=== PATIENT | female | born 1940 | race Caucasian/White ===

== ENCOUNTER 2021-04-25 09:40 | Emergency (ER) | payer BC, MEDICARE ==
[2021-04-25 10:01] VITALS: RESP 18; TEMP 98
--- NOTE | 2021-04-25 10:26 | ED ---
General Adult HPI - General Chief complaint: Extremity Injury, Upper Stated complaint: fall, brain tumor Time Seen by Provider: 04/25/21 10:04 Source: patient, RN notes reviewed Mode of arrival: ambulatory Limitations: no limitations - History of Present Illness Initial comments: -year-old female with a history of brain tumor resents to the emergency de partment accompanied by her daughter, for evaluation of left wrist pain status post fall approximately 1 hour prior to arrival. Patient did take one [place] prior to arrival and her daughter attempted to splint the wrist. Reports moderate amount of discomfort, however states she is not in need of anything for pain at this time. Patient's ring was removed from her left fourth digit and given to her daughter. Patient describes losing her balance, which is not uncommon for her due to this brain tumor, when she was turning around and fell backward. Patient states she landed on her backside first and then reached her left arm out to break her fall, then states the back of her head hit the ground. She denies loss of consciousness, nausea, vomiting, or cognition difference from baseline. Patient states she does take an oral blood thinning medicine, Plavix. Denies neck or back pain. - Related Data Home Medications Medication Instructions Recorded Confirmed ALPRAZolam [Xanax] 0.5 mg PO HS PRN 04/25/21 04/25/21 Albuterol Sulfate [Albuterol 2 puff PO RT-Q6H PRN 04/25/21 04/25/21 Sulfate Hfa] Aspirin 81 mg PO DAILY 04/25/21 04/25/21 Biotin [Biotin Disolve] 5,000 mcg PO DAILY 04/25/21 04/25/21 Cholecalciferol [Vitamin D3 (125 125 mcg PO DAILY 04/25/21 04/25/21 Mcg = 5000 Iu)] Clopidogrel Bisulfate [Plavix] 75 mg PO DAILY 04/25/21 04/25/21 Fluticasone/Umeclidin/Vilanter 1 puff INHALATION RT-DAILY 04/25/21 04/25/21 [Trelegy Ellipta 100-62.5-25] HYDROcodone/APAP 10-325MG [[place] 1 tab PO Q4HR PRN 04/25/21 04/25/21 10-325] Isosorbide Mononitrate ER [Imdur] 30 mg PO DAILY 04/25/21 04/25/21 Lansoprazole [Prevacid] 30 mg PO DAILY 04/25/21 04/25/21 Magnesium Gluconate [Magonate] 500 mg PO QID 04/25/21 04/25/21 Mesalamine [Pentasa] 1,500 mg PO TID 04/25/21 04/25/21 Nitroglycerin Sl Tabs [Nitrostat] 0.4 mg SUBLINGUAL Q5M PRN 04/25/21 04/25/21 Pantoprazole Sodium [Protonix] 40 mg PO DAILY 04/25/21 04/25/21 amLODIPine [Norvasc] 10 mg PO DAILY 04/25/21 04/25/21 carvediloL [Coreg] 3.125 mg PO BID 04/25/21 04/25/21 lisinopriL 40 mg PO DAILY 04/25/21 04/25/21 Allergies Allergy/AdvReac Type Severity Reaction Status Date / Time No Known Allergies Allergy Verified 04/25/21 11:56 Review of Systems ROS Statement: Those systems with pertinent positive or pertinent negative responses have been documented in the HPI. ROS Other: All systems not noted in ROS Statement are negative. Past Medical History Past Medical History: COPD, Hyperlipidemia, Hypertension, Myocardial Infarction ([place]), Seizure Disorder Additional Past Medical History / Comment(s): brain tumor History of Any Multi-Drug Resistant Organisms: None Reported Past Surgical History: Appendectomy, Bowel Resection, Heart Catheterization With Stent, Hernia Repair, Hysterectomy Additional Past Surgical History / Comment(s): brain surgeryx 2, crhon's, aortic valve replacment Past Psychological History: No Psychological Hx Reported Smoking Status: Current every day smoker Past Alcohol Use History: None Reported Past Drug Use History: Unable to Obtain General Exam Limitations: no limitations (All developed, well nourished female in no acute distress. Initially temperature 90.8, pulse 61, respirations 18, blood pressure 173/81, pulse ox 93% on room air.) General appearance: alert, in no apparent distress Head exam: Present: atraumatic, normocephalic, other (Contusion, abrasion, or scalp laceration in occipital region where patient states her head struck the ground. Scarring and deformity in the right temporoparietal area from previous surgery- no new issue.) Eye exam: Present: normal appearance, PERRL, EOMI. Absent: scleral icterus, conjunctival injection, periorbital swelling ENT exam: Present: normal exam, normal oropharynx, mucous membranes moist Neck exam: Present: normal inspection, full ROM. Absent: tenderness, meningismus, lymphadenopathy Respiratory exam: Present: normal lung sounds bilaterally, other (Patient has a history of COPD; pulse ox of 93% on room air is baseline for patient per family.). Absent: respiratory distress, wheezes, rales, rhonchi, stridor Cardiovascular Exam: Present: regular rate, normal rhythm, normal heart sounds. Absent: systolic murmur, diastolic murmur, rubs, gallop, clicks GI/Abdominal exam: Present: soft, normal bowel sounds. Absent: distended, tenderness, guarding, rebound, rigid Left Shoulder Exam: Present: normal inspection, full ROM. Absent: tenderness, swelling Upper Arm exam: Present: normal inspection, full ROM. Absent: tenderness, swelling Elbow exam: Present: normal inspection Forearm Wrist exam: Present: swelling, ecchymosis, deformity, other (Moderate amount of swelling on the radial aspect of the right wrist; tenderness upon palpation of the entire wrist region. ) Hand Wrist exam: Present: other (No contusion, abrasion, or deformity of the digits on the right hand) Neuro motor exam: Present: thumb opposition intact, fingers 2-5 abduction intact Vascular: Present: normal capillary refill, radial pulse, brachial pulse, ulnar pulse. Absent: vascular compromise Back exam: Present: normal inspection, full ROM. Absent: CVA tenderness (R), CVA tenderness (L), muscle spasm, paraspinal tenderness, vertebral tenderness Neurological exam: Present: alert, oriented X3, CN II-XII intact Psychiatric exam: Present: normal affect, normal mood Skin exam: Present: warm, dry, intact, normal color. Absent: rash Course Vital Signs 04/25/21 04/25/21 09:55 13:27 Temperature 98 F Pulse Rate 61 62 Respiratory 18 18 Rate Blood Pressure 173/81 138/93 O2 Sat by Pulse 93 L 93 L Oximetry - Reevaluation(s) Reevaluation #1: 04/25/21 13:[address] Burrows; successful wrist reduction. Splint placed to the left upper extremity. Patient tolerated well. Splint care and education reviewed with patient and family. Procedures - Orthopedic Fracture Reduction Fracture #1 Consent Obtained: verbal consent Side: left Fracture Reduction Location: radius Analgesia: hematoma block Technique: direct manipulation Post-Reduction Neuro Exam: intact Post-Reduction Vascular Exam: intact Splint Applied: Yes (Sugar tong splint applied to the left upper extremity) Patient Tolerated Procedure: well Additional Comments: Splint care reviewed with patient and family. They verbalized understanding. Instructed to follow-up with orthopedist. Patient's daughter reports they have established care with an orthopedist not affiliated with this is similar to a therefore they will take copies of radiology studies on a disc for follow-up. - Orthopedic Splinting/Casting Injury #1 Side: left Upper Extremity Injury Location: wrist Upper Extremity Immobilizer: sugar tong splint (Left upper extremity) Additional Comments: Patient tolerated well. Medical Decision Making - Medical Decision Making 80-year-old female presents to the emergency department accompanied by her daughter for evaluation of injuries sustained in a fall this morning. Patient is on Plavix and did strike her head when she fell this morning. Denies loss of consciousness. No cervical spine pain or vertebral tenderness. 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 Patient is awake, alert, and oriented; able to answer questions appropriately. No focal neuro deficit. CT of the brain was obtained and shows no acute process. Patient does complain of significant pain to the left wrist; moderate swelling and deformity noted. Radial and ulnar pulses intact. Cap refill less than 3 seconds. No loss of sensation or range of motion distal to injury. X-ray of the left wrist was obtained and shows comminuted, possibly intra-articular displaced distal left radial fracture. Suspected nondisplaced distal meta-physeal left ulnar fracture. Successful reduction per Dr. Burrows; sugar tong splint applied to the left upper extremity. Splint care and education reviewed at length with patient and daughter. They verbalize understanding. Patient will be discharged home to follow-up with her orthopedist. Return parameters were discussed in detail. Patient and daughter verbalize understanding and agrees with plan. - Radiology Data Radiology results: report reviewed, image reviewed CT of the brain was obtained. Report was reviewed in its entirety. Impression per Dr. Raymond is previous left frontal craniotomy flap with underlying encephalomalacia in the left frontal lobe. 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 Mild cerebral atrophy. No acute intracranial abnormality seen. X-ray of the left wrist was obtained. Report was reviewed in its entirety. Per Dr. Magdaleno, there is a comminuted, possibly intra-articular displaced distal left radial fracture. Suspected nondisplaced distal meta-physeal left ulnar fracture. Disposition Clinical Impression: Displaced comminuted fracture of shaft of left radius, Head injury without concussion or intracranial hemorrhage Disposition: HOME SELF-CARE Condition: Stable Instructions (If sedation given, give patient instructions): Wrist Fracture in Adults (ED), Head Injury (ED) Additional Instructions: Follow-up with orthopedist as discussed; take copies of radiology studies on disc with you. Keep splint clean, dry, and intact. Continue taking home pain medication as needed for discomfort. Elevate affected at rest; may apply ice. Monitor for signs of worsening head injury. Return to the emergency department with any new, worsening, or concerning symptoms. Is patient prescribed a controlled substance at d/c from ED?: No Referrals: Nonstaff,Physician [Primary Care Provider] - 1-2 days [facility] [Provider Group] - 1-2 days Time of Disposition: 13:06
--- NOTE | 2021-04-25 10:52 | XR ---
Left wrist HISTORY: Trauma and pain 4 views the left wrist There is a comminuted, possibly intra-articular displaced distal left radial fracture. Suspect a nond isplaced distal metaphyseal left ulnar fracture. Chondrocalcinosis is present. Reduced bone mineraliz ation is noted. Widening of the scapholunate distance is present and may be chronic. Osteoarthritic c hanges are present at the carpal metacarpal joint first digit. There is soft tissue swelling. IMPRESSION: Wrist fractures. Additional findings above.
--- NOTE | 2021-04-25 11:09 | CT ---
EXAMINATION TYPE: CT brain wo con DATE OF EXAM: 04/25/2021 COMPARISON: None HISTORY: 80-year-old female pain and head injury status post Fall, Brain tumor. On blood thinners. TECHNIQUE: Examination was done in axial plane without intravenous contrast. Coronal and sagittal r econstructions performed. CT DLP: 1102.4 mGycm Automated exposure control for dose reduction was used. FINDINGS: There is no evidence of acute intracranial hemorrhage, acute ischemic changes, mass, mass-effect, or extra-axial fluid collection. There is no effacement of cerebral sulci or basal subarachnoid cister ns. There is no midline shift. Ocampo-white matter distinction is preserved. There is a left lateral frontal convexity craniotomy flap. Underlying encephalomalacia throughout the left frontal lobe. There appears to be some type of platelike prosthetic device embedded in the scalp along the left lat eral convexity measuring 3.1 cm wide, refer to coronal image 37 and axial image 43. Mild central cerebral volume loss and secondary mild prominence to the ventricular system. 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 Paranasal sinuses and mastoid air cells well pneumatized. Orbits and globes are intact. IMPRESSION: Previous left frontal craniotomy flap with underlying encephalomalacia in the left frontal lobe. 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 Mild cerebral atrophy. No acute intracranial abnormality seen.
[2021-04-25] MEDS ORDERED: HYDROmorphone 1 MG/ML 1 ML SYRINGE IM STA (12:01)
[2021-04-25] MEDS ORDERED: LIDOCAINE 1% INJ 10MG/ML (20 ML MDV) SQ ONE (12:01)
[2021-04-25] MEDS ORDERED: ONDANSETRON ODT 4 MG TAB PO STA (12:01)
[2021-04-25 13:28] VITALS: BP 138/93; PULSE 62
== END 2021-04-25 13:28 | disposition home or self-care (01) ==
LOC: EC 09:40
DX: S52.352A Displaced comminuted fracture of shaft of radius, left arm, initial encounter for closed fracture (principal); S01.01XA Laceration without foreign body of scalp, initial encounter; I10 Essential (primary) hypertension; J44.9 Chronic obstructive pulmonary disease, unspecified; E78.5 Hyperlipidemia, unspecified; I25.2 Old myocardial infarction; G40.909 Epilepsy, unspecified, not intractable, without status epilepticus; F17.200 Nicotine dependence, unspecified, uncomplicated; Z79.82 Long term (current) use of aspirin; Z79.51 Long term (current) use of inhaled steroids; Z79.899 Other long term (current) drug therapy; W18.30XA Fall on same level, unspecified, initial encounter
CPT/HCPCS: 73110; 70450; 25505; 99284; 96372; J2001; J1170

== ENCOUNTER 2021-04-26 19:54 | Inpatient (IN) | payer MEDICARE, BC ==
[2021-04-26] MEDS ORDERED: SODIUM CHLORIDE 0.9% 1,000 ML IV ONE (21:21)
[2021-04-26 21:48] LABS: Basophils % (A) 0 %; Eosinophils # (A) 0.1 k/uL (0-0.7); Eosinophils % (A) 1 %; HCT 40.9 % (34.0-46.0); HGB 12.8 gm/dL (11.4-16.0); Lymphocytes % (A) 8 %; MCH 27.5 pg (25.0-35.0); MCHC 31.4 g/dL (31.0-37.0); MCV 87.7 fL (80.0-100.0); Mean Platelet Volume 9.9; Monocytes # (A) 0.8 k/uL (0-1.0); Monocytes % (A) 6 %; Neutrophils # (A) 10.2 k/uL (1.3-7.7); Neutrophils % (A) 84 %; Platelet Count 219 k/uL (150-450); RBC 4.66 m/uL (3.80-5.40); RDW 14.6 % (11.5-15.5); WBC 12.2 k/uL (3.8-10.6)
--- NOTE | 2021-04-26 22:02 | CT ---
EXAMINATION TYPE: CT brain wo con DATE OF EXAM: 04/26/2021 COMPARISON: Yesterday. HISTORY: AMS CT DLP: 1129.4 mGycm Automated exposure control for dose reduction was used. There is 5 cm area of hypodensity left posterior frontal lobe. There is left lateral frontal cranioto my defect. There is no mass effect nor midline shift. There is no sign of intracranial hemorrhage. Sk ull base is intact. There is normal aeration of the mastoid sinuses. IMPRESSION: Previous surgery. Encephalomalacia left frontal lobe. No change compared to yesterday. No acute intra cranial abnormality.
[2021-04-26 22:15] LABS: ALT 99 U/L (4-34); AST 129 U/L (14-36); Acetaminophen <10.0 ug/mL; African American GFR (CKD) 66 (>60 ml/min/1.73 sqM); Albumin 3.6 g/dL (3.5-5.0); Alcohol <10 mg/dL; Alkaline Phosphatase 79 U/L (38-126); Anion Gap 9 mmol/L; Blood Urea Nitrogen 33 mg/dL (7-17); Calcium 9.8 mg/dL (8.4-10.2); Carbon Dioxide 26 mmol/L (22-30); Chloride 99 mmol/L (98-107); Glucose 124 mg/dL (74-99); Non-African American GFR(CKD) 57 (>60 ml/min/1.73 sqM); Potassium 3.7 mmol/L (3.5-5.1); Salicylate <1.0 mg/dL; Sodium 134 mmol/L (137-145); Total Bilirubin 0.9 mg/dL (0.2-1.3); Total Protein 6.6 g/dL (6.3-8.2)
--- NOTE | 2021-04-26 22:17 | XR ---
EXAMINATION TYPE: XR chest 2V DATE OF EXAM: 04/26/2021 COMPARISON: NONE HISTORY: Altered mental status TECHNIQUE: 2 views FINDINGS: Heart is enlarged. There is no heart failure. There are chest leads. There is some elevatio n of the left diaphragm. There is 25% anterior wedging of T11 vertebra. There is also similar wedging of T12. IMPRESSION: Cardiomegaly.. No heart failure. Lower thoracic mild compression fractures of uncertain a ge.
[2021-04-26] MEDS ORDERED: HYDROcodone/APAP 10-325MG 1 EACH TAB PO ONE (22:27)
[2021-04-26 22:29] LABS: Partial Thromboplastin Time 24.5 sec (22.0-30.0); Prothrombin Time 10.6 sec (9.0-12.0)
[2021-04-26] MEDS ORDERED: LORazepam 2 MG/ML INJ IV STA (23:00)
--- NOTE | 2021-04-26 23:08 | ED ---
Altered Mental Status HPI - General Chief Complaint: Altered Mental Status Stated Complaint: Not eating or drinking, Weak Time Seen by Provider: 04/26/21 20:59 Source: patient Mode of arrival: ambulatory Limitations: no limitations - History of Present Illness Initial Comments: 80-year-old female past history of Crohn's, brain tumor with resection who p resents emergency room with altered mental status. Patient was seen yesterday in the emergency room and after a fall. He she reports that she has balance issues due to her history of brain tumor and therefore has frequent falls. She did sustain a fall yesterday and broke her left wrist. She also hit her head. She came to the hospital where she was placed in a splint after reduction. CT of her brain was negative for any acute process. Patient was discharged home and presents today with altered mental status. Daughter is at bedside and helps provide history. States that this is her mother's third hospitalization in the past week. Previous hospitalization was at [facility] for altered mental status. Reports that she had improvement in her mentation after fluid hydration. She states that her mother has not been eating and drinking since she has been at home. Denies any new falls. Patient refuses to answer any questions and therefore the HPI is limited. Daughter is concerned for recurrence of the brain tumor. - Related Data Home Medications Medication Instructions Recorded Confirmed ALPRAZolam [Xanax] 0.5 mg PO HS PRN 04/25/21 04/26/21 Albuterol Sulfate [Albuterol 2 puff PO RT-Q6H PRN 04/25/21 04/26/21 Sulfate Hfa] Aspirin 81 mg PO DAILY 04/25/21 04/26/21 Biotin [Biotin Disolve] 5,000 mcg PO DAILY 04/25/21 04/26/21 Cholecalciferol [Vitamin D3 (125 125 mcg PO DAILY 04/25/21 04/26/21 Mcg = 5000 Iu)] Clopidogrel Bisulfate [Plavix] 75 mg PO DAILY 04/25/21 04/26/21 Fluticasone/Umeclidin/Vilanter 1 puff INHALATION RT-DAILY 04/25/21 04/26/21 [Trelegy Ellipta 100-62.5-25] HYDROcodone/APAP 10-325MG [[place] 1 tab PO Q4HR PRN 04/25/21 04/26/21 10-325] Isosorbide Mononitrate ER [Imdur] 30 mg PO DAILY 04/25/21 04/26/21 Lansoprazole [Prevacid] 30 mg PO DAILY 04/25/21 04/26/21 Magnesium Gluconate [Magonate] 500 mg PO QID 04/25/21 04/26/21 Mesalamine [Pentasa] 1,500 mg PO TID 04/25/21 04/26/21 Nitroglycerin Sl Tabs [Nitrostat] 0.4 mg SUBLINGUAL Q5M PRN 04/25/21 04/26/21 Pantoprazole Sodium [Protonix] 40 mg PO DAILY 04/25/21 04/26/21 amLODIPine [Norvasc] 10 mg PO DAILY 04/25/21 04/26/21 carvediloL [Coreg] 3.125 mg PO BID 04/25/21 04/26/21 lisinopriL 40 mg PO DAILY 04/25/21 04/26/21 Allergies Allergy/AdvReac Type Severity Reaction Status Date / Time No Known Allergies Allergy Verified 04/26/21 20:42 Review of Systems ROS Statement: Those systems with pertinent positive or pertinent negative responses have been documented in the HPI. ROS Other: All systems not noted in ROS Statement are negative. Past Medical History Past Medical History: COPD, Hyperlipidemia, Hypertension, Myocardial Infarction ([place]), Seizure Disorder Additional Past Medical History / Comment(s): brain tumor History of Any Multi-Drug Resistant Organisms: None Reported Past Surgical History: Appendectomy, Bowel Resection, Heart Catheterization With Stent, Hernia Repair, Hysterectomy Additional Past Surgical History / Comment(s): brain surgeryx 2, crhon's, aortic valve replacment Past Psychological History: No Psychological Hx Reported Smoking Status: Current every day smoker Past Alcohol Use History: None Reported Past Drug Use History: Unable to Obtain General Exam Limitations: no limitations Course Vital Signs 04/26/21 04/26/21 04/26/21 20:34 21:15 22:55 Temperature 98.0 F Pulse Rate 70 67 77 Respiratory 20 17 18 Rate Blood Pressure 83/47 105/61 174/75 O2 Sat by Pulse 93 L 93 L 98 Oximetry Procedures - [place] Protocol (Time Out) Nurse: Ashlee Wells Medical Decision Making - Medical Decision Making On arrival patient was placed into trauma 1. A thorough history and physical exam is performed. Patient does not follow any commands or answer any questions however she does respond quickly to painful stimulation. Laboratory studies were conducted. Patient to go over for a CT of her brain which demonstrates no acute findings. Patient is reevaluated and is awake in the exam room. She is requesting pain medications for restless leg. Patient is prescribed [place] 10/325 milligrams be taken every 4 hours for pain. Patient does admit that she will take 2 tablets at a time. Patient denies abuse of her medications. She denies any illicit drug use. Laboratory studies are reviewed. Troponin mildly elevated at 0.055. He'll awaiting urinalysis at this time. Did recommend hospitalization for which the patient's family did agree to. Spoke with Dr. Atkinson who agreed to admit the patient. She is currently awaiting a bed on the floor in stable condition - Lab Data Result diagrams: 04/26/21 21:24 04/26/21 21:24 Lab Results 04/26/21 04/26/21 04/26/21 Range/Units 21:24 21:24 21:24 WBC 12.2 H (3.8-10.6) k/uL RBC 4.66 (3.80-5.40) m/uL Hgb 12.8 (11.4-16.0) gm/dL Hct 40.9 (34.0-46.0) % MCV 87.7 (80.0-100.0) fL MCH 27.5 (25.0-35.0) pg MCHC 31.4 (31.0-37.0) g/dL RDW 14.6 (11.5-15.5) % Plt Count 219 (150-450) k/uL MPV 9.9 Neutrophils % 84 % Lymphocytes % 8 % Monocytes % 6 % Eosinophils % 1 % Basophils % 0 % Neutrophils # 10.2 H (1.3-7.7) k/uL Lymphocytes # 1.0 (1.0-4.8) k/uL Monocytes # 0.8 (0-1.0) k/uL Eosinophils # 0.1 (0-0.7) k/uL Basophils # 0.0 (0-0.2) k/uL PT 10.6 (9.0-12.0) sec INR 1.0 (<1.2) APTT 24.5 (22.0-30.0) sec Sodium 134 L (137-145) mmol/L Potassium 3.7 (3.5-5.1) mmol/L Chloride 99 (98-107) mmol/L Carbon Dioxide 26 (22-30) mmol/L Anion Gap 9 mmol/L BUN 33 H (7-17) mg/dL Creatinine 0.95 (0.52-1.04) mg/dL Est GFR (CKD-EPI)AfAm 66 (>60 ml/min/1.73 sqM) Est GFR (CKD-EPI)NonAf 57 (>60 ml/min/1.73 sqM) Glucose 124 H (74-99) mg/dL Calcium 9.8 (8.4-10.2) mg/dL Total Bilirubin 0.9 (0.2-1.3) mg/dL AST 129 H (14-36) U/L ALT 99 H (4-34) U/L Alkaline Phosphatase 79 (38-126) U/L Ammonia (<30) umol/L Creatine Kinase (30-135) U/L Troponin I (0.000-0.034) ng/mL Total Protein 6.6 (6.3-8.2) g/dL Albumin 3.6 (3.5-5.0) g/dL Salicylates <1.0 mg/dL Acetaminophen <10.0 ug/mL Serum Alcohol <10 mg/dL Coronavirus (PCR) (Not Detectd) 04/26/21 04/26/21 04/26/21 Range/Units 21:24 21:24 21:24 WBC (3.8-10.6) k/uL RBC (3.80-5.40) m/uL Hgb (11.4-16.0) gm/dL Hct (34.0-46.0) % MCV (80.0-100.0) fL MCH (25.0-35.0) pg MCHC (31.0-37.0) g/dL RDW (11.5-15.5) % Plt Count (150-450) k/uL MPV Neutrophils % % Lymphocytes % % Monocytes % % Eosinophils % % Basophils % % Neutrophils # (1.3-7.7) k/uL Lymphocytes # (1.0-4.8) k/uL Monocytes # (0-1.0) k/uL Eosinophils # (0-0.7) k/uL Basophils # (0-0.2) k/uL PT (9.0-12.0) sec INR (<1.2) APTT (22.0-30.0) sec Sodium (137-145) mmol/L Potassium (3.5-5.1) mmol/L Chloride (98-107) mmol/L Carbon Dioxide (22-30) mmol/L Anion Gap mmol/L BUN (7-17) mg/dL Creatinine (0.52-1.04) mg/dL Est GFR (CKD-EPI)AfAm (>60 ml/min/1.73 sqM) Est GFR (CKD-EPI)NonAf (>60 ml/min/1.73 sqM) Glucose (74-99) mg/dL Calcium (8.4-10.2) mg/dL Total Bilirubin (0.2-1.3) mg/dL AST (14-36) U/L ALT (4-34) U/L Alkaline Phosphatase (38-126) U/L Ammonia <9 (<30) umol/L Creatine Kinase 71 (30-135) U/L Troponin I 0.055 H* (0.000-0.034) ng/mL Total Protein (6.3-8.2) g/dL Albumin (3.5-5.0) g/dL Salicylates mg/dL Acetaminophen ug/mL Serum Alcohol mg/dL Coronavirus (PCR) (Not Detectd) 04/26/21 Range/Units 22:55 WBC (3.8-10.6) k/uL RBC (3.80-5.40) m/uL Hgb (11.4-16.0) gm/dL Hct (34.0-46.0) % MCV (80.0-100.0) fL MCH (25.0-35.0) pg MCHC (31.0-37.0) g/dL RDW (11.5-15.5) % Plt Count (150-450) k/uL MPV Neutrophils % % Lymphocytes % % Monocytes % % Eosinophils % % Basophils % % Neutrophils # (1.3-7.7) k/uL Lymphocytes # (1.0-4.8) k/uL Monocytes # (0-1.0) k/uL Eosinophils # (0-0.7) k/uL Basophils # (0-0.2) k/uL PT (9.0-12.0) sec INR (<1.2) APTT (22.0-30.0) sec Sodium (137-145) mmol/L Potassium (3.5-5.1) mmol/L Chloride (98-107) mmol/L Carbon Dioxide (22-30) mmol/L Anion Gap mmol/L BUN (7-17) mg/dL Creatinine (0.52-1.04) mg/dL Est GFR (CKD-EPI)AfAm (>60 ml/min/1.73 sqM) Est GFR (CKD-EPI)NonAf (>60 ml/min/1.73 sqM) Glucose (74-99) mg/dL Calcium (8.4-10.2) mg/dL Total Bilirubin (0.2-1.3) mg/dL AST (14-36) U/L ALT (4-34) U/L Alkaline Phosphatase (38-126) U/L Ammonia (<30) umol/L Creatine Kinase (30-135) U/L Troponin I (0.000-0.034) ng/mL Total Protein (6.3-8.2) g/dL Albumin (3.5-5.0) g/dL Salicylates mg/dL Acetaminophen ug/mL Serum Alcohol mg/dL Coronavirus (PCR) Not Detected (Not Detectd) - EKG Data EKG Comments: EKG demonstrates a sinus rhythm with a ventricular rate of 67. AK interval 146. QRS 124. QTC of 454. There is a left bundle branch block. No acute ST segment elevations. Disposition
[2021-04-26] MEDS ORDERED: NALOXONE 0.4 MG/ML 1 ML VIAL IV PRN (23:24)
[2021-04-27] MEDS: SODIUM CHLORIDE 0.9% 1,000 ML IV SCH ×2 (00:04→11:51)
[2021-04-27] MEDS ORDERED: HYDROcodone/APAP 10-325MG 1 EACH TAB PO PRN (01:20)
[2021-04-27] MEDS ORDERED: ALPRAZolam 0.5 MG TAB PO PRN (01:20)
--- NOTE | 2021-04-27 01:49 | P.HPIM ---
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 She was at baseline status of health where she is premature independent lives alone up until a few days ago seems like yesterday she has sustained a fall on outstretched hand resulted in fracture in her wrist for which she presented to the hospital she also reported hitting her head no report of loss of consciousness the fall reported to be accidental. CT of the head yesterday showed no acute intracranial pathology with evidence of surgical changes from the past due to brain tumor. Patient was sent home however since yesterday she's been sleeping in bed with altered mental status not eating not drinking and not talking family decided to bring her in today for evaluation as she was not improving Patient is unable to provide any meaningful history she is more awake now follow simple commands however not consistent and mumbles incomprehensible words however she is oriented to self. No report of stroke in the past no report of any blood clots no recent travel no recent changes in her medications Patient unable to provide any meaningful history at this time Workup in the ED overall was unremarkable slightly elevated white count. Slightly elevated liver enzymes Repeated CT of the brain showed no changes compared to yesterday Review of Systems ROS unobtainable: due to mental status Past Medical History Past Medical History: COPD, Hyperlipidemia, Hypertension, Myocardial Infarction (HI), Seizure Disorder Additional Past Medical History / Comment(s): brain tumor History of Any Multi-Drug Resistant Organisms: None Reported Past Surgical History: Appendectomy, Bowel Resection, Heart Catheterization With Stent, Hernia Repair, Hysterectomy Additional Past Surgical History / Comment(s): brain surgeryx 2, crhon's, aortic valve replacment Past Psychological History: No Psychological Hx Reported Smoking Status: Current every day smoker Past Alcohol Use History: None Reported Past Drug Use History: Unable to Obtain Medications and Allergies Home Medications Medication Instructions Recorded Confirmed Type ALPRAZolam [Xanax] 0.5 mg PO HS PRN 04/25/21 04/26/21 History Albuterol Sulfate [Albuterol 2 puff PO RT-Q6H PRN 04/25/21 04/26/21 History Sulfate Hfa] Aspirin 81 mg PO DAILY 04/25/21 04/26/21 History Biotin [Biotin Disolve] 5,000 mcg PO DAILY 04/25/21 04/26/21 History Cholecalciferol [Vitamin D3 (125 125 mcg PO DAILY 04/25/21 04/26/21 History Mcg = 5000 Iu)] Clopidogrel Bisulfate [Plavix] 75 mg PO DAILY 04/25/21 04/26/21 History Fluticasone/Umeclidin/Vilanter 1 puff INHALATION RT-DAILY 04/25/21 04/26/21 History [Trelegy Ellipta 100-62.5-25] HYDROcodone/APAP 10-325MG [[place] 1 tab PO Q4HR PRN 04/25/21 04/26/21 History 10-325] Isosorbide Mononitrate ER [Imdur] 30 mg PO DAILY 04/25/21 04/26/21 History Lansoprazole [Prevacid] 30 mg PO DAILY 04/25/21 04/26/21 History Magnesium Gluconate [Magonate] 500 mg PO QID 04/25/21 04/26/21 History Mesalamine [Pentasa] 1,500 mg PO TID 04/25/21 04/26/21 History Nitroglycerin Sl Tabs [Nitrostat] 0.4 mg SUBLINGUAL Q5M PRN 04/25/21 04/26/21 History Pantoprazole Sodium [Protonix] 40 mg PO DAILY 04/25/21 04/26/21 History amLODIPine [Norvasc] 10 mg PO DAILY 04/25/21 04/26/21 History carvediloL [Coreg] 3.125 mg PO BID 04/25/21 04/26/21 History lisinopriL 40 mg PO DAILY 04/25/21 04/26/21 History Allergies Allergy/AdvReac Type Severity Reaction Status Date / Time No Known Allergies Allergy Verified 04/26/21 20:42 Physical Exam Vitals: Vital Signs Temp Pulse Resp BP Pulse Ox 04/26/21 22:55 77 18 174/75 98 04/26/21 21:15 67 17 105/61 93 L 04/26/21 20:34 98.0 F 70 20 83/47 93 L Intake and Output 04/26/21 04/26/21 04/27/21 14:59 22:59 06:59 Other: Weight 40.823 kg Constitutional: No acute distress, pleasant, follows simple commands inconsistently Eyes: Anicteric sclerae, moist conjunctiva, Pupils equal round reactive to light ENMT: Normocephalic Oropharynx clear, no erythema, or exudates Neck: Supple, , no masses, or JVD No carotid bruits No thyromegaly Lungs: Clear to auscultation Clear to percussion Normal respiratory effort, no accessory muscle use Cardiovascular: Heart regular in rate and rhythm, No murmurs, gallops, or rubs No peripheral edema Abdominal: Soft Nontender, no guarding, rebound or rigidity Abdomen moving with respiration Normoactive bowel sounds No hepatomegaly, No splenomegaly No palpable mass No abdominal wall hernia noted Skin: Normal temperature, tone, texture, turgor No induration No subcutaneous nodules No rash, lesions No ulcers Extremities: Left upper extremity and surgical dressing and splint due to recent wrist fracture , capillary refill is immediate over the left fingers No digital cyanosis No clubbing Pedal pulses intact and symmetrical Radial pulses intact and symmetrical No calf tenderness Psychiatric: Alert and oriented to self only, pleasantly confused Neuro patient moving all 4 extremities otherwise unable to perform proper neurologic assessment due to patient current condition. Pupils are round and equal reactive to light. She makes good eye contact and tracking. She is moving all 4 extremities (limited over the left upper extremity due to recent fracture )purposefully and intermittently with follow simple commands Lymphatics: no palpable cervical or supraclavicular , or inguinal lymph nodes Results CBC & Chem 7: 04/26/21 21:24 04/26/21 21:24 Labs: Abnormal Lab Results - Last 24 Hours (Table) 04/26/21 04/26/21 04/26/21 Range/Units 21:24 21:24 21:24 WBC 12.2 H (3.8-10.6) k/uL Neutrophils # 10.2 H (1.3-7.7) k/uL Sodium 134 L (137-145) mmol/L BUN 33 H (7-17) mg/dL Glucose 124 H (74-99) mg/dL AST 129 H (14-36) U/L ALT 99 H (4-34) U/L Troponin I 0.055 H* (0.000-0.034) ng/mL Assessment and Plan Assessment: Acute metabolic encephalopathy unknown underlying cause History of brain tumor Neurochecks Fall precautions Seizure precautions Neurologic consultation Serial neuro exams Check MRI of the brain Slightly elevated troponins No report of chest pain Continue to trend troponins EKG showed left bundle branch block Chronic conditions Crohn's disease resume home medications Hypertension resume home medications History of CAD resume home cardiac medications PT eval Discharge planning DVT prophylaxis heparin subcu 3 times a day Patient is full code Anticipated length of stay less than 2 midnights
[2021-04-27 03:31] LABS: Basophils % (A) 0 %; Eosinophils % (A) 0 %; HCT 37.4 % (34.0-46.0); Lymphocytes # (A) 0.9 k/uL (1.0-4.8); Lymphocytes % (A) 13 %; MCH 28.2 pg (25.0-35.0); MCHC 32.1 g/dL (31.0-37.0); MCV 87.8 fL (80.0-100.0); Mean Platelet Volume 9.5; Monocytes # (A) 0.6 k/uL (0-1.0); Monocytes % (A) 9 %; Neutrophils # (A) 5.5 k/uL (1.3-7.7); Neutrophils % (A) 77 %; Platelet Count 163 k/uL (150-450); RBC 4.25 m/uL (3.80-5.40); RDW 14.7 % (11.5-15.5); WBC 7.2 k/uL (3.8-10.6)
[2021-04-27 04:10] LABS: Calcium 9.4 mg/dL (8.4-10.2)
[2021-04-27 05:06] LABS: Potassium 2.7 mmol/L (3.5-5.1)
[2021-04-27] MEDS ORDERED: Potassium Replacement Protocol 1 EACH MISC MISCELLANE PRN (05:23)
[2021-04-27] MEDS: POTASSIUM CHLORIDE 10 MEQ in WATER FOR INJECTION 1 100ML.BAG IVPB SCH ×6 (05:51→23:53)
[2021-04-27] MEDS: IPRATROPIUM 0.5 MG/2.5 ML NEBU INHALATION SCH ×4 (07:05→21:56)
[2021-04-27] MEDS: SYMBICORT 80-4.5 MCG INHALER INHALATION SCH ×2 (07:05→21:56)
[2021-04-27] MEDS ORDERED: NON FORMULARY DRUG (Biotin [Biotin Disolve] 5,000 MCG Tablet) PO SCH (09:00)
--- NOTE | 2021-04-27 10:04 | P.CNNES ---
History of Present Illness Consult date: 04/27/21 Requesting physician: Allison Sparks Reason for Consult: acute encephalopathy History of Present Illness: This is an 80-year-old woman with history of brain tumor status post surgery, cognitive impairment, Crohn's disease, hypertension, coronary artery disease s/p stent, aortic valve replacement presented emergency department on 04/26/2021 for altered mental status. The history was obtained from medical record. It Seems the patient resides alone and the the day prior to presents the hospital she stated a fall on outstretched hand resulted in fracture in her wrist. She does state that she hit her head but denies any loss of consciousness. She presented to our ED on 04/25/2021 was accompanied by her daughter. The per the ED note that she denied of any neck pain or tenderness. And she denied any change of me ntal status when she presented to the hospital yesterday and per the ED she was able to answer questions appropriately and no focal neuro deficits on examination. She had a CT of the brain showed no acute process. She was given a splint to follow-up with orthopedic. Per the ED note patient has been having balance issues and the frequent falls and possibly attribute into the brain tumor. And this is her third hospitalization in the past week. She was also hospitalized prior to that and now [facility]. Some of the patient on medication consist of aspirin 81 mg, lisinopril, carvedilol, amlodipine, Imdur, Plavix 75 mg, vitamin D3, biotin, Xanax 0.5 mg daily at bedtime when necessary. Per the patient's nurse she has been uncooperative and somewhat aggressive. Per the nurse she lives on her own and uses a walker. Some of the work-up in the hospital: EKG of the head on 04/26/2021 was reported as previous surgery. Encephalomalacia over the left frontal lobe. No change compared to yesterday at. No acute intracranial abnormality. I did personally review CT of the head and the patient does have left frontal encephalomalacia and craniotomy over the left frontal. As well as had the encephalomalacia over left caudate head. Did not appreciate any acute or subacute ischemia or any intra-parenchyma hemorrhage. CT head on 04/25/2021 was reported as left frontal craniotomy flap with underlying encephalomalacia in the frontal lobe. 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 Mild cerebral atrophy. No acute intracranial abnormality seen. Initial white blood cells 12.2 thousand and the repeated is 7.2. Hemoglobin is 12.8, hematocrit is 40.9 and the platelet is 219,000. Initial sodium is 134, creatinine is 0.95, calcium 9.8, initial serum glucose is 124, AST is 129 and ALT is 99, ammonia is less than 9, CK 71, troponin is 0.055, 0.059 and then 0.075. Salicyclates Is less than 1.0, acetaminophen is less than 10.0, serum alcohol was less than 10. Coronavirus patient was not detected PT 10.6, INR 1.0 and PTT 24.5. Review of Systems Review of system: Is limited but the pertinent positive and negative as per HPI. Past Medical History Past Medical History: COPD, Hyperlipidemia, Hypertension, Myocardial Infarction (MS), Seizure Disorder Additional Past Medical History / Comment(s): brain tumor History of Any Multi-Drug Resistant Organisms: None Reported Past Surgical History: Appendectomy, Bowel Resection, Heart Catheterization With Stent, Hernia Repair, Hysterectomy Additional Past Surgical History / Comment(s): brain surgeryx 2, crhon's, aortic valve replacment Past Psychological History: No Psychological Hx Reported Smoking Status: Current every day smoker Past Alcohol Use History: None Reported Past Drug Use History: Unable to Obtain Medications and Allergies Home Medications Medication Instructions Recorded Confirmed Type ALPRAZolam [Xanax] 0.5 mg PO HS PRN 04/25/21 04/26/21 History Albuterol Sulfate [Albuterol 2 puff PO RT-Q6H PRN 04/25/21 04/26/21 History Sulfate Hfa] Aspirin 81 mg PO DAILY 04/25/21 04/26/21 History Biotin [Biotin Disolve] 5,000 mcg PO DAILY 04/25/21 04/26/21 History Cholecalciferol [Vitamin D3 (125 125 mcg PO DAILY 04/25/21 04/26/21 History Mcg = 5000 Iu)] Clopidogrel Bisulfate [Plavix] 75 mg PO DAILY 04/25/21 04/26/21 History Fluticasone/Umeclidin/Vilanter 1 puff INHALATION RT-DAILY 04/25/21 04/26/21 History [Trelegy Ellipta 100-62.5-25] HYDROcodone/APAP 10-325MG [[place] 1 tab PO Q4HR PRN 04/25/21 04/26/21 History 10-325] Isosorbide Mononitrate ER [Imdur] 30 mg PO DAILY 04/25/21 04/26/21 History Lansoprazole [Prevacid] 30 mg PO DAILY 04/25/21 04/26/21 History Magnesium Gluconate [Magonate] 500 mg PO QID 04/25/21 04/26/21 History Mesalamine [Pentasa] 1,500 mg PO TID 04/25/21 04/26/21 History Nitroglycerin Sl Tabs [Nitrostat] 0.4 mg SUBLINGUAL Q5M PRN 04/25/21 04/26/21 History Pantoprazole Sodium [Protonix] 40 mg PO DAILY 04/25/21 04/26/21 History amLODIPine [Norvasc] 10 mg PO DAILY 04/25/21 04/26/21 History carvediloL [Coreg] 3.125 mg PO BID 04/25/21 04/26/21 History lisinopriL 40 mg PO DAILY 04/25/21 04/26/21 History Allergies Allergy/AdvReac Type Severity Reaction Status Date / Time No Known Allergies Allergy Verified 04/26/21 20:42 Physical Examination - Vital Signs Vital Signs: Vital Signs Temp Pulse Pulse Resp BP Pulse Ox 04/27/21 08:00 97.9 F 69 18 94 L 04/27/21 07:14 98.6 F 66 20 153/63 95 04/27/21 07:08 62 04/27/21 05:54 65 17 148/71 97 04/27/21 03:29 65 17 165/83 95 04/26/21 22:55 77 18 174/75 98 04/26/21 21:15 67 17 105/61 93 L 04/26/21 20:34 98.0 F 70 20 83/47 93 L Intake and Output 04/26/21 04/27/21 04/27/21 22:59 06:59 14:59 Other: Weight 40.823 kg GENERAL: The patient is lying in bed and does not seem in acute distress. CHEST: Could not assess because of cooperation.. LUNG: Could not assess because of cooperation. Not labored breathing. ABDOMEN/GI: Could not assess because of cooperation. NEUROLOGICAL: Limited because of patient cooperation. Higher mental function: The patient is awake, alert and is oriented to self. She was agitated upon me asking her question and stated" I want water and be left alone". He got aggressive and was attempting to push me. Cranial nerves: The pupils are round but could not fully exam because of her cooperation. No appreciable facial weakness. No dysarthria. Otherwise could not assess rest of exam. Motor: Gait is deferred because of cooperation. The strength is hard to assess but was moving the right upper extremity above gravity without difficulty. The left could not assess and was pushing away. Appears to have cast over the left arm. Withdrawing bilateral lower extremity upon Could not assess tone and bulk appears normal. Cerebellum: Could not assess. Sensation: Could not assess. Reflexes (right/left): Could not assess. Plantars could not assess. Results - Laboratory Findings CBC and BMP: 04/27/21 02:50 04/27/21 15:38 Abnormal Lab Findings: Abnormal Labs 04/26/21 04/26/21 04/26/21 21:24 21:24 21:24 WBC 12.2 H Neutrophils # 10.2 H Lymphocytes # Sodium 134 L Potassium BUN 33 H Glucose 124 H AST 129 H ALT 99 H Troponin I 0.055 H* 04/27/21 04/27/21 04/27/21 00:31 02:50 02:50 WBC Neutrophils # Lymphocytes # 0.9 L Sodium Potassium BUN Glucose AST ALT Troponin I 0.059 H* 0.075 H* 04/27/21 02:50 WBC Neutrophils # Lymphocytes # Sodium 135 L Potassium 2.7 L* BUN 34 H Glucose 109 H AST ALT Troponin I Assessment and Plan Assessment: * Altered mental status possibly due to metabolic encephalopathy with elevated the liver function. Examination is limited since patient was somewhat aggressive upon trying to exam her. Cannot rule out behavioral changes could be due to old left frontal encephalomalacia. Rule out any underlying seizure (especially with history of tumor with encephalomalacia over the left frontal). * Mild Hepatopathy (mild elevated of AST of 129 and ALT 99) * Recent fracture on left wrist from fall. * Multiple falls with hospital visits. 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 * Hypertension * Crohn's disease * History of coronary artery disease status post stent * History of aortic valve replacement Plan: * Ordered a routine EEG. I'll not start the patient on antiepileptic drugs unless there is epileptiform discharges or seizure on the EEG. * Ordered TSH, vitamin B12, folate level. * Cannot get MRI brain because she would not lie still as well as a she has history of aortic valve replacement and am not sure if MRI can be done if she can cooperate. * Patient is on aspirin and Plavix and from a neurologic perspective she can be on either aspirin or Plavix but will defer that to the primary and cardiology team. I feel since the patient is having recurrent falls the risk of a bleeding is higher with dual antiplatelet but again I'll defer to the other teams. * Continue neuro checks. * Patient on seizure precaution and seizure pads * Consulted the PT and OT. * We'll defer the rest of the medical management to the primary team * Upon discharge recommend the patient to follow-up with a neurologist as an outpatient within 1-2 weeks. The plan is discussed with the patient's nurse. Thank you for the consultation. Dr. Sosa will start neurology service tomorrow AM. Demetrius Valle M.D. Neuro-hospitalist Time with Patient: Greater than 30
[2021-04-27] MEDS ORDERED: ACETAMINOPHEN TAB 325 MG TAB PO PRN (10:32)
[2021-04-27] MEDS: lisinopriL 20 MG TAB PO SCH (10:40)
[2021-04-27] MEDS: PANTOPRAZOLE 40 MG TABLET PO SCH ×2 (10:40→11:05)
[2021-04-27] MEDS: ISOSORBIDE MONONITRATE ER 30 MG TAB.ER.24H PO SCH (10:40)
[2021-04-27] MEDS: BALSALAZIDE DISODIUM 750 MG CAPSULE PO SCH ×3 (10:41→21:45)
[2021-04-27] MEDS: ASPIRIN 81 MG PO SCH (10:41)
[2021-04-27] MEDS: carvediloL 3.125 MG TAB PO SCH ×2 (10:41→18:07)
[2021-04-27] MEDS: amLODIPine 10 MG TAB PO SCH (10:42)
[2021-04-27] MEDS: CHOLECALCIFEROL 125 MCG (5000 IU) TABLET PO SCH (10:42)
[2021-04-27] MEDS: MAGNESIUM OXIDE 400 MG TAB PO SCH ×4 (10:42→21:46)
[2021-04-27] MEDS: CLOPIDOGREL 75 MG TAB PO SCH (10:42)
[2021-04-27] MEDS: HEPARIN SODIUM,PORCINE/PF 5,000 UNIT/0.5 ML SYRINGE SQ SCH ×3 (11:01→23:55)
[2021-04-27] MEDS: KETOROLAC 30 MG/ML 1 ML VIAL IVP PRN ×2 (11:59→20:10)
[2021-04-27] MEDS: HYDROcodone/APAP 5-325MG 1 EACH TAB PO PRN (15:48)
[2021-04-27 16:14] LABS: Magnesium 2.3 mg/dL (1.6-2.3)
[2021-04-27] MEDS ORDERED: POTASSIUM BICARBONATE/CIT AC 20 MEQ TABLET.EFF PO ONE (18:27)
--- NOTE | 2021-04-27 18:29 | P.PN ---
Subjective Progress Note Date: 04/27/21 (delayed charting seen at 1500) Principal diagnosis: altered mentation Patient is an 80-year-old female with a history of brain tumor status post resection approximately 10 years ago, Crohn's disease, and chronic back pain who was brought in by her daughter for altered mentation. She is also going to [facility] for altered mentation this week. She had suffered a fall breaking her wrist was in the ER here on 04/25 and had her wrist placed in a splint. Daughter brought her back on 04/26 due to altered mentation. Laboratory analysis demonstrated a white blood cell count of 12 and a mildly elevated troponin of 0.055. She was also found to have mildly elevated liver enzymes at 129 and 99. Troponin remained flat and not consistent with acute coronary syndrome. Repeat labs demonstrated decreased potassium. This was replaced per protocol. Head CT was consistent with her known prior tumor with resection. She was seen by neurology who plans for an EEG. By the morning of 04/27 she was awake and alert and oriented 3. She was asking for pain medic ations due to her back pain. Patient seen and examined at bedside. She states she is still having some back pain though she was sleeping on my entrance into the room. She denies any chest pain, shortness breath, nausea, vomiting she is aware of the plan for possible EEG in a.m. She has no history of aortic valve replacement. Nursing confirm this with her daughter. General: non toxic, no distress, Appears older than stated age Derm: warm, dry Head: atraumatic, normocephalic, symmetric Eyes: EOMI, no lid lag, anicteric sclera Mouth: no lip lesion, mucus membranes moist Cardiovascular: S1S2 reg, no murmur, positive posterior tibial pulse bilateral, Lungs: CTA bilateral, no rhonchi, no rales , no accessory muscle use Abdominal: soft, nontender to palpation, no guarding, no appreciable organomegaly Ext: no gross muscle atrophy, no edema, no contractures Neuro: CN II-XI grossly intact, no focal neuro deficits Psych: Alert, oriented, appropriate affect Acute metabolic encephalopathy -History of seizure -History of brain tumor with left frontal resection and craniotomy now with en cephalomalacia -Neurology recommendations appreciated -Await TSH, vitamin B12, and folate levels -Await EEG -MRI in a.m. Patient denies history of aortic valve. -PT/OT -Seizure precautions -Neuro checks Hypokalemia - replace and rechek Transaminitis, undetermined etiology -This is mild and likely inconsequential to her altered mentation -Check CMP in a.m. Nonspecific troponin elevation -Flat -Patient without chest pain -Not consistent with acute coronary syndrome Left wrist fracture -Outpatient follow-up with orthopedics COPD HTN HLD UT DVT prophylaxis: SCDs Discussed with: patient, nursing, no fmaily at bedside during exam Anticipated discharge: in AM Anticipated discharge place: return home A total of 40 minutes was spent on the care of this complex patient more than 50% of the time was spent in counseling and care coordination. Objective - Vital Signs Vital signs: Vital Signs Temp 97.9 F 04/27/21 15:54 Pulse 64 04/27/21 16:29 Resp 18 04/27/21 15:54 BP 125/60 04/27/21 15:54 Pulse Ox 92 L 04/27/21 15:54 Intake & Output 04/26/21 04/27/21 04/27/21 18:59 06:59 18:59 Intake Total 100 Balance 100 Weight 40.823 kg 40.823 kg Intake: Intake, IV Titration 100 Amount Potassium Chloride 10 meq 100 In Water For Injection 1 100ml.bag @ 100 mls/hr IVPB Q1HR [facility] Rx#: [id number] Other: # Voids 1 - Labs CBC & Chem 7: 04/27/21 02:50 04/27/21 15:38 Labs: Abnormal Lab Results - Last 24 Hours (Table) 04/26/21 04/26/21 04/26/21 Range/Units 21:24 21:24 21:24 WBC 12.2 H (3.8-10.6) k/uL Neutrophils # 10.2 H (1.3-7.7) k/uL Lymphocytes # (1.0-4.8) k/uL Sodium 134 L (137-145) mmol/L Potassium (3.5-5.1) mmol/L BUN 33 H (7-17) mg/dL Glucose 124 H (74-99) mg/dL AST 129 H (14-36) U/L ALT 99 H (4-34) U/L Troponin I 0.055 H* (0.000-0.034) ng/mL TSH (0.465-4.680) mIU/L 04/27/21 04/27/21 04/27/21 Range/Units 00:31 02:50 02:50 WBC (3.8-10.6) k/uL Neutrophils # (1.3-7.7) k/uL Lymphocytes # 0.9 L (1.0-4.8) k/uL Sodium (137-145) mmol/L Potassium (3.5-5.1) mmol/L BUN (7-17) mg/dL Glucose (74-99) mg/dL AST (14-36) U/L ALT (4-34) U/L Troponin I 0.059 H* 0.075 H* (0.000-0.034) ng/mL TSH (0.465-4.680) mIU/L 04/27/21 04/27/21 Range/Units 02:50 15:38 WBC (3.8-10.6) k/uL Neutrophils # (1.3-7.7) k/uL Lymphocytes # (1.0-4.8) k/uL Sodium 135 L (137-145) mmol/L Potassium 2.7 L* 3.0 L (3.5-5.1) mmol/L BUN 34 H (7-17) mg/dL Glucose 109 H (74-99) mg/dL AST (14-36) U/L ALT (4-34) U/L Troponin I (0.000-0.034) ng/mL TSH 0.338 L (0.465-4.680) mIU/L
[2021-04-27] MEDS ORDERED: POTASSIUM CHLORIDE 10 MEQ in WATER FOR INJECTION 1 100ML.BAG IVPB SCH (23:00)
[2021-04-28] MEDS: HYDROcodone/APAP 5-325MG 1 EACH TAB PO PRN ×3 (00:01→18:10)
[2021-04-28 04:14] LABS: Calcium 9.4 mg/dL (8.4-10.2); Magnesium 2.4 mg/dL (1.6-2.3); Potassium 3.3 mmol/L (3.5-5.1)
[2021-04-28] MEDS: KETOROLAC 30 MG/ML 1 ML VIAL IVP PRN ×3 (04:51→23:29)
[2021-04-28 06:42] LABS: Appearance,Urine Cloudy (Clear); Bacteria,Urine Many /hpf; Bilirubin,Urine Negative (Negative); Blood,Urine Negative (Negative); Cellular Casts,Urine 1 /lpf (0); Color,Urine Dark Yellow; Glucose,Urine (UA) Negative (Negative); Hyaline Casts,Urine 7 /lpf (0-2); Ketones,Urine Negative (Negative); Leukocyte Esterase,Urine Large (Negative); Mucus,Urine Rare /hpf; Nitrite,Urine Positive (Negative); PH, Urine 5.5 (5.0-8.0); Protein,Urine Trace (Negative); RBC,Urine 4 /hpf (0-5); Specific Gravity,Urine 1.023 (1.001-1.035); Squamous Epithelial Cell,Urine <1 /hpf (0-4); Urobilinogen,Urine <2.0 mg/dL (<2.0); WBC,Urine 38 /hpf (0-5)
[2021-04-28 06:45] LABS: Amphetamine Screen,Urine Not Detected (NotDetected); Barbiturate Screen,Urine Not Detected (NotDetected); Benzodiazepines Screen,Urine Detected (NotDetected); Cocaine Screen,Urine Not Detected (NotDetected); Methadone Screen, Urine Not Detected (NotDetected); Opiate Screen,Urine Detected (NotDetected); Oxycodone Screen, Urine Not Detected (NotDetected); Phencyclidine Screen,Urine Not Detected (NotDetected); Tricyclic Antidepressant,Urine Not Detected (NotDetected); Urn Cannabinoid Scrn Not Detected (NotDetected)
[2021-04-28] MEDS: carvediloL 3.125 MG TAB PO SCH ×2 (06:47→16:40)
[2021-04-28] MEDS: HEPARIN SODIUM,PORCINE/PF 5,000 UNIT/0.5 ML SYRINGE SQ SCH (08:05)
[2021-04-28] MEDS: BALSALAZIDE DISODIUM 750 MG CAPSULE PO SCH ×3 (08:06→21:10)
[2021-04-28] MEDS: ISOSORBIDE MONONITRATE ER 30 MG TAB.ER.24H PO SCH (08:07)
[2021-04-28] MEDS: amLODIPine 10 MG TAB PO SCH (08:07)
[2021-04-28] MEDS: CLOPIDOGREL 75 MG TAB PO SCH (08:07)
[2021-04-28] MEDS: lisinopriL 20 MG TAB PO SCH (08:07)
[2021-04-28] MEDS: MAGNESIUM OXIDE 400 MG TAB PO SCH ×4 (08:07→16:40)
[2021-04-28] MEDS: PANTOPRAZOLE 40 MG TABLET PO SCH ×2 (08:07→08:08)
[2021-04-28] MEDS: ASPIRIN 81 MG PO SCH (08:07)
[2021-04-28] MEDS: CHOLECALCIFEROL 125 MCG (5000 IU) TABLET PO SCH (08:08)
[2021-04-28] MEDS: SYMBICORT 80-4.5 MCG INHALER INHALATION SCH ×2 (10:08→21:16)
[2021-04-28] MEDS: IPRATROPIUM 0.5 MG/2.5 ML NEBU INHALATION SCH ×4 (10:08→21:16)
--- NOTE | 2021-04-28 15:41 | MR ---
EXAMINATION TYPE: MR brain wo/w con DATE OF EXAM: 04/28/2021 COMPARISON: 04/26/2021 HISTORY: CVA CONTRAST: Performed utilizing 4 mL intravenous Gadavist gadolinium contrast. TECHNIQUE: Multiplanar, multiecho imaging on a 3.0 Ana magnet is performed through the brain. Stud y is not performed within 24 hours of arrival to the hospital. The craniovertebral junction is normal. The pituitary is normal. Diffusion-weighted imaging is performed. No abnormal hyperintensity is present to suggest an acute i ntracranial infarct or acute ischemic change. There is a circumscribed round area of enhancement within the left frontal parietal lobe . This appea rs to have adjacent vasogenic edema suspicious for metastasis. There is a craniotomy defect along the left frontal temporal region. There is dural thickening and postcontrast imaging measuring 1.7 x 1.0 cm. Series 703 image 63. This extends towards the rounded area of enhancement and is suspicious for meningeal metastasis. There is a larger 2.1 x 2.3 cm rounded T1 hypointense area with adjacent vasogenic edema. This howeve r does not enhance. This is hypointense on T1 and bright on T2-weighted sequences. This felt to more likely be related to the patient's postsurgical encephalomalacia. However, hyperacute hemorrhage shou ld be considered and CT brain is recommended to reevaluate for an intraparenchymal hemorrhage. Ventricles and sulci are appropriate for the patient age. Significant mass effect at the level of the suspected vasogenic edema is not identified at this time. IMPRESSIONS: 1. 1.2 cm area of round ring enhancement which appears to communicate with a area of dural thickening and enhancement suspicious for recurrent neoplasm. Vasogenic edema is present. While there is likely postsurgical encephalomalacia present an interval hemorrhage could be considered at the surgery site and repeat CT brain is recommended. A Red level critical message alert has been initiated for Neela Burgos via the [employer] Results System on 04/28/2021 3:27 PM. This message alert has been sent to Neela Burgos via e preferences provided by the clinician for the receipt of Radiology Critical Findings. Message ID [id number]. Report was called and case discussed with the on-call physician by Dr. White 1539 hours 04/28/2021
[2021-04-28] MEDS: DEXAMETHASONE SOD PHOSPHATE 10 MG/ML 1 ML VIAL IVP SCH (16:39)
--- NOTE | 2021-04-28 16:58 | CT ---
EXAMINATION TYPE: CT brain wo con DATE OF EXAM: 04/28/2021 COMPARISON: MRI brain 04/28/2021 INDICATION: Follow up scan., Abnormal MRI findings DLP: 1158.4 mGycm, Automated exposure control for dose reduction was used. CONTRAST: None CT of the brain is performed utilizing 3 mm thick sections through the posterior fossa and 3 mm thick sections through the remaining calvarium. Study is performed within 24 hours of arrival to the hosp [facility]. No abnormal hyperdensity is present to suggest an acute intracranial hemorrhage. In the region of int erest of the prior surgery findings more likely postsurgical in nature. Vasogenic edema appears simil ar to the comparison. The ring-enhancing lesion on the MRI may be a hypodense area appears smaller on the CT than on the MR I. No acute infarcts are evident. Patchy periventricular white matter hypodensity appears stable compati ble with microvascular ischemic change. Ventricles and sulci are appropriate for the patient age. Paranasal sinuses and mastoid air cells within the [id number] are clear. IMPRESSIONS: 1. No acute hemorrhage identified. 2. Postsurgical changes left frontal right region are stable from comparison. Patient's suspected und erlying recurrence is not as well-visualized on the CT as the MRI.
--- NOTE | 2021-04-28 17:12 | EEG ---
ELECTROENCEPHALOGRAM REPORT DATE OF SERVICE: 04/28/2021 PREAMBLE: This is an 80-year-old female with history of brain tumor who came to the hospital with altered mental status. She has recurrent falls with concussion. This study is performed to evaluate for any epileptiform activity. EEG FINDINGS: This is a 21-channel digital EEG recording with video competent, utilizing 10/20 international system with referential and bipolar montages. Background consists of moderately well-developed but somewhat disorganized background with mixed frequencies of 7 hertz theta, intermixed with some delta activity sporadically, in bihemispheric region. Background seems to be minimally reactive to eye opening and closing. There is a relatively higher amplitude activity with focal slowing seen in the left frontal central region suggestive of breach rhythm due to craniotomy defect. Different stages of sleep were not seen. No definitive focal or generalized epileptiform activity was seen. Myogenic activity was frequently observed. Photic stimulation was not performed. IMPRESSION: This is an abnormal EEG due to 1) background slowing and disorganization, consistent with toxic metabolic encephalopathy or related to medication effect; 2) relatively higher amplitude activity seen in the left frontal central region, suggestive of breach rhythm due to craniotomy defect. No epileptiform activity was seen. MMODL / IJN: [id number] / [facility]
--- NOTE | 2021-04-28 17:47 | P.PN ---
<Gage Stoll - Last Filed: 04/28/21 17:23> Subjective Progress Note Date: 04/28/21 Hospital course: Patient is an 80-year-old female with a history of brain tumor status post re section approximately 10 years ago, Crohn's disease, and chronic back pain who was brought into the hospital on 04/26/21 by her daughter for reports of increased alteration in mental status. Patient has reportedly been experiencing increased confusion and was even seen previously at [facility] for altered mentation earlier this week. Patient's daughter reports patient has been so confused that she even suffered a fall breaking her wrist resulting in evaluation in the ER and placement of left wrist in splint. In the emergency department, patient underwent CT head which revealed findings of previous surgery with encephalomalacia of left frontal lobe with left frontal craniotomy defect and was negative for acute intercranial abnormalities. Chest x-ray was completed showing cardiomegaly with lower thoracic mild compression fractures of uncertain age. EKG was completed showing normal sinus rhythm at 67 bpm with a left bundle branch block and no previous EKGs available for comparison. Patient was admitted under our services with consultation to neurology. Initially patient was found to have significant hypokalemia with potassium of 2.7 which was replaced. And an elevated troponin of 0.055, 0.059, and 0.075. TSH 0.338 with free T4 of 1.32. Urinalysis positive for infection showing nitrites, leukocytes, and 38 WBCs. MRI and EEG completed 04/28/21. 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 Patient started on Decadron 10 mg IVP daily and Keppra 500 mg every 12 hours in order a stat CT head. Repeat CT negative for acute intracranial hemorrhage. Seizure precautions to remain in place. EEG showing abnormal findings consistent with toxic metabolic encephalopathy or related to diffuse structural brain abnormalities with relatively higher amplitude activity seen in the left frontal central regions suggestive of breach rhythm due to previous craniotomy with no eleptiform activity reported. Physical examination: Patient seen and examined at bedside. Upon examination patient alert to person, place, and situation with showing intermittent episodes of confusion and poor historian. Patient reports intermittent back pain but currently denies having any headache, lightheadedness, dizziness, changes in vision or hearing, chest pain, palpitations, shortness of breath, or experiencing any numbness/tingling/weakness in her extremities. Previous hypokalemia has resolv ed. General: non toxic, no distress, Appears older than stated age Derm: warm, dry Head: atraumatic, normocephalic, symmetric Eyes: EOMI, no lid lag, anicteric sclera Mouth: no lip lesion, mucus membranes moist Cardiovascular: S1S2 reg, no murmur, positive posterior tibial pulse bilateral, Lungs: CTA bilateral, no rhonchi, no rales , no accessory muscle use Abdominal: soft, nontender to palpation, no guarding, no appreciable organomegaly Ext: no gross muscle atrophy, no edema, no contractures Neuro: CN II-XI grossly intact, no focal neuro deficits Psych: Alert, oriented, appropriate affect Assessment and plan of care: Acute metabolic encephalopathy History of brain tumor with left frontal resection and craniotomy now with encephalomalacia History of seizures -MRI showing critical findings of a 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 -Patient started on Decadron 10 mg IVP daily and Keppra 500 mg every 12 hours. -Repeat CT negative for acute intracranial hemorrhage. -Maintain seizure precautions -Neurology following, appreciate further recommendations -EEG showing abnormal findings consistent with toxic metabolic encephalopathy or related to diffuse structural brain abnormalities with relatively higher amplitude activity seen in the left frontal central regions suggestive of breach rhythm due to previous craniotomy with no eleptiform activity reported. -PT/OT -Continue close Neuro checks Hypokalemia, resolved UTI -Rocephin 1 g every 24 hours pending urine culture results. -Bladder management Transaminitis, undetermined etiology -This is mild and likely inconsequential to her altered mentation -Check CMP in a.m. Nonspecific troponin elevation -Flat -EKG was completed showing normal sinus rhythm at 67 bpm with a left bundle branch block and no previous EKGs available for comparison. -Patient without chest pain -Not consistent with acute coronary syndrome Left wrist fracture -Symptomatic care and pain management with assistance as needed. -Outpatient follow-up with orthopedics COPD Continuation of Symbicort and encourage use of incentive spirometry. Hypertension -Monitor vital signs and continue daily medication regimen. History of CAD with previous TX Continue daily medication regimen with amlodipine, Plavix, Imdur, and lisinopril. DVT prophylaxis: SCDs Discussed with: Patient and RN. RN called daughter and updated Anticipated discharge: Clinical course to determine Anticipated discharge place: Home. A total of 45 minutes was spent on the care of this complex patient more than 5 0% of the time was spent in counseling and care coordination. Objective - Vital Signs Vital signs: Vital Signs Temp 98.7 F 04/28/21 08:00 Pulse 62 04/28/21 08:00 Resp 16 04/28/21 08:00 BP 140/67 04/28/21 08:00 Pulse Ox 93 L 04/28/21 08:00 Intake & Output 04/27/21 04/28/21 04/28/21 18:59 06:59 18:59 Intake Total 100 Balance 100 Weight 40.823 kg 40 kg Intake: Intake, IV Titration 100 Amount Potassium Chloride 10 meq 100 In Water For Injection 1 100ml.bag @ 100 mls/hr IVPB Q1HR [facility] Rx#: [id number] Other: # Voids 1 1 # Bowel Movements 1 - Labs CBC & Chem 7: 04/27/21 02:50 04/28/21 08:49 Labs: Abnormal Lab Results - Last 24 Hours (Table) 04/27/21 04/28/21 04/28/21 Range/Units 15:38 03:42 06:00 Sodium 133 L (137-145) mmol/L Potassium 3.0 L 3.3 L (3.5-5.1) mmol/L Carbon Dioxide 20 L (22-30) mmol/L BUN 37 H (7-17) mg/dL Magnesium 2.4 H (1.6-2.3) mg/dL Vitamin B12 958.0 H (200.0-944.0) pg/mL TSH 0.338 L (0.465-4.680) mIU/L Urine Appearance Cloudy H (Clear) Urine Protein Trace H (Negative) Urine Nitrite Positive H (Negative) Ur Leukocyte Esterase Large H (Negative) Urine WBC 38 H (0-5) /hpf Urine Bacteria Many H (None) /hpf Hyaline Casts 7 H (0-2) /lpf Urine Mucus Rare H (None) /hpf Urine Opiates Screen Detected H (NotDetected) U Benzodiazepines Scrn Detected H (NotDetected) <Josue Cruz - Last Filed: 04/28/21 18:03> Subjective I reviewed the documentation as provided by the NAIDA above, who is the original author of this note. I agree with the documented assessment and plan, with the following changes: None Objective - Vital Signs Vital signs: Vital Signs Temp 98.7 F 04/28/21 08:00 Pulse 66 04/28/21 15:42 Resp 16 04/28/21 15:42 BP 164/77 04/28/21 15:42 Pulse Ox 96 04/28/21 15:42 Intake & Output 04/27/21 04/28/21 04/28/21 18:59 06:59 18:59 Intake Total 100 Balance 100 Weight 40.823 kg 40 kg 40 kg Intake: Intake, IV Titration 100 Amount Potassium Chloride 10 meq 100 In Water For Injection 1 100ml.bag @ 100 mls/hr IVPB Q1HR [facility] Rx#: [id number] Other: # Voids 1 1 1 # Bowel Movements 1 1 - Labs CBC & Chem 7: 04/27/21 02:50 04/28/21 08:49 Labs: Abnormal Lab Results - Last 24 Hours (Table) 04/27/21 04/28/21 04/28/21 Range/Units 15:38 03:42 06:00 Sodium 133 L (137-145) mmol/L Potassium 3.3 L (3.5-5.1) mmol/L Carbon Dioxide 20 L (22-30) mmol/L BUN 37 H (7-17) mg/dL Magnesium 2.4 H (1.6-2.3) mg/dL Vitamin B12 958.0 H (200.0-944.0) pg/mL Urine Appearance Cloudy H (Clear) Urine Protein Trace H (Negative) Urine Nitrite Positive H (Negative) Ur Leukocyte Esterase Large H (Negative) Urine WBC 38 H (0-5) /hpf Urine Bacteria Many H (None) /hpf Hyaline Casts 7 H (0-2) /lpf Urine Mucus Rare H (None) /hpf Urine Opiates Screen Detected H (NotDetected) U Benzodiazepines Scrn Detected H (NotDetected) Microbiology - Last 24 Hours (Table) 04/28/21 06:00 Urine Culture - Preliminary Urine,Voided
--- NOTE | 2021-04-28 18:11 | P.PN ---
Subjective Progress Note Date: 04/28/21 Patient was seen for a follow-up. Patient initially seen by Dr. Demetrius Valle. Please refer to his note for details. Patient has history of left frontal tumor, that was removed by Dr. Hoff at [facility] in 2002. Patient has multiple brain surgeries and also had a shunt placed at one point, which subsequently had been removed. Patient has history of seizures after her first surgery in 2002, for which she was on seizure medication only for a short while. She has not had any seizure for a number of years. Patient came to the hospital because of altered mental status, aggressive behavior, rule out seizure. Per nurse report, when she tries to sit up, she feels spinning. Patient is having some apraxia, as she is not able to use objects which she usually can. Patient states her last MRI of the brain was in 2018. She was scheduled for a follow-up MRI of the brain as an outpatient, but she ended up coming to the hospital. Patient feels that she is frequently losing balance for the last 3-4 weeks, progressively getting worse. She tends to list to the right side. Objective - Vital Signs Vital signs: Vital Signs Temp 98.7 F 04/28/21 08:00 Pulse 66 04/28/21 15:42 Resp 16 04/28/21 15:42 BP 164/77 04/28/21 15:42 Pulse Ox 96 04/28/21 15:42 Intake & Output 04/27/21 04/28/21 04/28/21 18:59 06:59 18:59 Intake Total 100 Balance 100 Weight 40.823 kg 40 kg 40 kg Intake: Intake, IV Titration 100 Amount Potassium Chloride 10 meq 100 In Water For Injection 1 100ml.bag @ 100 mls/hr IVPB Q1HR [facility] Rx#: [id number] Other: # Voids 1 1 1 # Bowel Movements 1 1 - Exam On examination patient is alert and awake. She knows that it is March 2021 and she is in [facility]. Speech and language functions are normal. No aphasia or dysarthria. Visual hook are full, extraocular muscles intact, face is symmetric and tongue protrudes to the midline. Muscle strength is n ormal in the arms distally and proximally. In the lower limbs her hip flexion is 4+ bilaterally and ankle dorsiflexion are 5. Sensory to touch is equal with no neglect. No ataxia for [id number] testing. Tone and bulk of muscles normal. Gait deferred. - Labs CBC & Chem 7: 04/27/21 02:50 04/28/21 08:49 Labs: Abnormal Lab Results - Last 24 Hours (Table) 04/27/21 04/28/21 04/28/21 Range/Units 15:38 03:42 06:00 Sodium 133 L (137-145) mmol/L Potassium 3.3 L (3.5-5.1) mmol/L Carbon Dioxide 20 L (22-30) mmol/L BUN 37 H (7-17) mg/dL Magnesium 2.4 H (1.6-2.3) mg/dL Vitamin B12 958.0 H (200.0-944.0) pg/mL Urine Appearance Cloudy H (Clear) Urine Protein Trace H (Negative) Urine Nitrite Positive H (Negative) Ur Leukocyte Esterase Large H (Negative) Urine WBC 38 H (0-5) /hpf Urine Bacteria Many H (None) /hpf Hyaline Casts 7 H (0-2) /lpf Urine Mucus Rare H (None) /hpf Urine Opiates Screen Detected H (NotDetected) U Benzodiazepines Scrn Detected H (NotDetected) Microbiology - Last 24 Hours (Table) 04/28/21 06:00 Urine Culture - Preliminary Urine,Voided Assessment and Plan Assessment: * Altered mental status possibly due to metabolic encephalopathy with elevated the liver function. Examination is limited since patient was somewhat aggressive upon trying to exam her. Cannot rule out behavioral changes could be due to old left frontal encephalomalacia. Rule out any underlying seizure (especially with history of tumor with encephalomalacia over the left frontal). * Mild Hepatopathy (mild elevated of AST of 129 and ALT 99) * Recent fracture on left wrist from fall. * Multiple falls with hospital visits. 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 * Hypertension * Crohn's disease * History of coronary artery disease status post stent * History of aortic valve replacement Plan: * MRI of the brain with and without contrast revealed 1.2 cm area of round ring enhancement which appears to communicate with the area of dural thickening and enhancement suspicious for recurrent neoplasm. Vasogenic edema is present. While there is likely post surgical encephalomalacia present an interval hemorrhage could be considered at the surgery site and repeat CT brain is recommended. * Repeat CT had revealed no hemorrhage. May resume antiplatelet regimen and Lovenox for DVT prophylaxis. * EEG was performed, which was abnormal due to #1 background slowing and disorganization, consistent with toxic metabolic encephalopathy or related to diffuse structural brain abnormality. #2 relatively high amplitude activity seen in the left frontal central region, suggestive of breach rhythm due to craniotomy defect. No epileptiform activity was otherwise seen. * Because of significantly abnormal MRI, we will empirically start her on Keppra 500 mg twice a day. * TSH is slightly low 0.338. Free T4 is normal 1.32. Defer to IM. * Vitamin B12 958, folate level 10.6. * Continue neuro checks. * Patient on seizure precaution and seizure pads * We'll defer the rest of the medical management to the primary team * Upon discharge recommend the patient needs to follow-up with her neurosurgeon within 1-2 weeks.
[2021-04-28] MEDS: levETIRAcetam 500 MG TAB PO SCH (21:09)
[2021-04-29] MEDS: HYDROcodone/APAP 5-325MG 1 EACH TAB PO PRN ×4 (01:32→23:35)
[2021-04-29] MEDS: KETOROLAC 30 MG/ML 1 ML VIAL IVP PRN (05:50)
[2021-04-29] MEDS: carvediloL 3.125 MG TAB PO SCH ×2 (06:35→15:21)
[2021-04-29] MEDS ORDERED: HEPARIN SODIUM,PORCINE/PF 5,000 UNIT/0.5 ML SYRINGE SQ SCH (08:00)
[2021-04-29] MEDS ORDERED: ENOXAPARIN 40 MG/0.4 ML SYRINGE SQ SCH (09:00)
[2021-04-29 09:01] LABS: Calcium 9.8 mg/dL (8.4-10.2)
[2021-04-29 09:02] LABS: Potassium 3.7 mmol/L (3.5-5.1)
[2021-04-29 09:05] LABS: HCT 39.2 % (34.0-46.0); HGB 12.2 gm/dL (11.4-16.0); Hypochromasia Slight; MCH 28.5 pg (25.0-35.0); MCHC 31.1 g/dL (31.0-37.0); MCV 91.6 fL (80.0-100.0); Mean Platelet Volume 9.3; Platelet Count 194 k/uL (150-450); RBC 4.28 m/uL (3.80-5.40); RDW 15.1 % (11.5-15.5); WBC 4.1 k/uL (3.8-10.6)
[2021-04-29] MEDS: CLOPIDOGREL 75 MG TAB PO SCH (09:10)
[2021-04-29] MEDS: ISOSORBIDE MONONITRATE ER 30 MG TAB.ER.24H PO SCH (09:10)
[2021-04-29] MEDS: DEXAMETHASONE SOD PHOSPHATE 10 MG/ML 1 ML VIAL IVP SCH (09:10)
[2021-04-29] MEDS: lisinopriL 20 MG TAB PO SCH (09:10)
[2021-04-29] MEDS: levETIRAcetam 500 MG TAB PO SCH ×2 (09:10→19:57)
[2021-04-29] MEDS: PANTOPRAZOLE 40 MG TABLET PO SCH (09:10)
[2021-04-29] MEDS: amLODIPine 10 MG TAB PO SCH (09:10)
[2021-04-29] MEDS: ASPIRIN 81 MG PO SCH (09:10)
[2021-04-29] MEDS: ENOXAPARIN 40 MG/0.4 ML SYRINGE SQ SCH (09:18)
[2021-04-29] MEDS: CHOLECALCIFEROL 125 MCG (5000 IU) TABLET PO SCH (10:08)
[2021-04-29] MEDS: BALSALAZIDE DISODIUM 750 MG CAPSULE PO SCH ×3 (10:08→19:58)
[2021-04-29] MEDS: SYMBICORT 80-4.5 MCG INHALER INHALATION SCH ×2 (10:09→20:47)
[2021-04-29] MEDS: IPRATROPIUM 0.5 MG/2.5 ML NEBU INHALATION SCH ×4 (10:09→20:47)
--- NOTE | 2021-04-29 15:15 | P.PN ---
<Gage Stoll - Last Filed: 04/29/21 14:56> Subjective Progress Note Date: 04/29/21 Hospital course: Patient is an 80-year-old female with a history of brain tumor status post re section approximately 10 years ago, Crohn's disease, and chronic back pain who was brought into the hospital on 04/26/21 by her daughter for reports of increased alteration in mental status. Patient has reportedly been experiencing increased confusion and was even seen previously at [facility] for altered mentation earlier this week. Patient's daughter reports patient has been so confused that she even suffered a fall breaking her wrist resulting in evaluation in the ER and placement of left wrist in splint. In the emergency department, patient underwent CT head which revealed findings of previous surgery with encephalomalacia of left frontal lobe with left frontal craniotomy defect and was negative for acute intercranial abnormalities. Chest x-ray was completed showing cardiomegaly with lower thoracic mild compression fractures of uncertain age. EKG was completed showing normal sinus rhythm at 67 bpm with a left bundle branch block and no previous EKGs available for comparison. Patient was admitted under our services with consultation to neurology. Initially patient was found to have significant hypokalemia with potassium of 2.7 which was replaced. And an elevated troponin of 0.055, 0.059, and 0.075. TSH 0.338 with free T4 of 1.32. Urinalysis positive for infection showing nitrites, leukocytes, and 38 WBCs. MRI and EEG completed 04/28/21. 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 Patient started on Decadron 10 mg IVP daily and Keppra 500 mg every 12 hours in order a stat CT head. Repeat CT negative for acute intracranial hemorrhage. Seizure precautions to remain in place. EEG showing abnormal findings consistent with toxic metabolic encephalopathy or related to diffuse structural brain abnormalities with relatively higher amplitude activity seen in the left frontal central regions suggestive of breach rhythm due to previous craniotomy with no eleptiform activity reported. Physical examination: Patient seen and examined at bedside. Upon examination patient alert to person, place, and situation. She continues to report pain to her back in which she currently reports as being uncontrolled and is being medicated by RN with [place] at this time. Patient denies to deny having any headache, lightheadedness, dizziness, changes in vision or hearing, chest pain, palpitations, shortness of breath, or experiencing any numbness/tingling/weakness in her extremities. Discussed with patient findings of MRI and CT. Explained to patient that she will need to continue Keppra and decadron upon discharge and follow up with her neurosurgeon as soon as possible and recommend within one week. Call was placed to radiology to obtain a copy of MRI disk. Patient continues to be very unsteady upon ambulation and difficulties with her balance. Patient has been recommended that she will need correction facility for rehab upon discharge. Patient's daughter coming in this afternoon to further discuss with patient is no one will be available in the home during the days to assist her. Morning labs reviewed and showing no significant abnormalities. General: non toxic, no distress, Appears older than stated age Derm: warm, dry Head: atraumatic, normocephalic, symmetric Eyes: EOMI, no lid lag, anicteric sclera Mouth: no lip lesion, mucus membranes moist Cardiovascular: S1S2 reg, no murmur, positive posterior tibial pulse bilateral, Lungs: CTA bilateral, no rhonchi, no rales , no accessory muscle use Abdominal: soft, nontender to palpation, no guarding, no appreciable organomegaly Ext: no gross muscle atrophy, no edema, no contractures. Splint in place to left wrist and hand. Sensation and movement remains intact fingers. Cap refill less than 2 seconds. 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 -Decadron decreased to 4 mg twice a day as recommended by neurology and we will continue with Keppra 500 mg every 12 hours. -Repeat CT negative for acute intracranial hemorrhage. -Maintain seizure precautions -Neurology following, recommending patient follow up with neurosurgeon in 1 week upon discharge. -EEG showing abnormal findings consistent with toxic metabolic encephalopathy or related to diffuse structural brain abnormalities with relatively higher amplitude activity seen in the left frontal central regions suggestive of breach rhythm due to previous craniotomy with no eleptiform activity reported. -PT/OT -Continue close Neuro checks Hypokalemia, resolved UTI -Rocephin 1 g every 24 hours pending urine culture results. -Bladder management -Preliminary urine culture positive for gram-negative bacilli. Transaminitis, undetermined etiology -This is mild and likely inconsequential to her altered mentation -CMP to be repeated with a.m. labs. Nonspecific troponin elevation -Flat -EKG was completed showing normal sinus rhythm at 67 bpm with a left bundle branch block and no previous EKGs available for comparison. -Patient without chest pain -Not consistent with acute coronary syndrome Left wrist fracture -Symptomatic care and pain management with assistance as needed. -Outpatient follow-up with orthopedics COPD Continuation of Symbicort and encourage use of incentive spirometry. Hypertension -Monitor vital signs and continue daily medication regimen. History of CAD with previous NV Continue daily medication regimen with amlodipine, Plavix, Imdur, and lisinopril. DVT prophylaxis: SCDs Discussed with: Patient, patient's daughter and RN. Patient's daughter has RE been in contact with patient's neurosurgeon, Dr. Hoff to schedule appointment for next week. Anticipated discharge: Tomorrow morning Anticipated discharge place: Likely SNF, patient's daughter coming in to discuss further with patient this afternoon. A total of 40 minutes was spent on the care of this complex patient more than 50% of the time was spent in counseling and care coordination. Objective - Vital Signs Vital signs: Vital Signs Temp 97.2 F L 04/29/21 09:05 Pulse 64 04/29/21 09:05 Resp 20 04/29/21 09:05 BP 160/70 04/29/21 09:05 Pulse Ox 96 04/29/21 09:05 Intake & Output 04/28/21 04/29/21 04/29/21 18:59 06:59 18:59 Intake Total 10 Output Total 320 Balance -320 10 Weight 40 kg 46.2 kg Intake: IV 10 Invasive Line 2 10 Oral 0 Output: Urine 300 Post Void Residual 20 Other: # Voids 1 1 1 # Bowel Movements 1 2 - Labs CBC & Chem 7: 04/29/21 07:43 04/29/21 07:43 Labs: Abnormal Lab Results - Last 24 Hours (Table) 04/29/21 Range/Units 07:43 Sodium 136 L (137-145) mmol/L Carbon Dioxide 18 L (22-30) mmol/L BUN 35 H (7-17) mg/dL Glucose 120 H (74-99) mg/dL Microbiology - Last 24 Hours (Table) 04/28/21 06:00 Urine Culture - Preliminary Urine,Voided <Josue Cruz - Last Filed: 04/29/21 18:41> Subjective I reviewed the documentation as provided by the NAIDA above, who is the original author of this note. I agree with the documented assessment and plan, with the following changes: None Objective - Vital Signs Vital signs: Vital Signs Temp 97.5 F L 04/29/21 15:27 Pulse 67 04/29/21 15:27 Resp 20 04/29/21 15:27 BP 150/78 04/29/21 15:27 Pulse Ox 98 04/29/21 15:27 Intake & Output 04/28/21 04/29/21 04/29/21 18:59 06:59 18:59 Intake Total 368 Output Total 320 Balance -320 368 Weight 40 kg 46.2 kg Intake: IV 20 Invasive Line 2 20 Oral 348 Output: Urine 300 Post Void Residual 20 Other: # Voids 1 1 1 # Bowel Movements 1 2 - Labs CBC & Chem 7: 04/29/21 07:43 04/29/21 07:43 Labs: Abnormal Lab Results - Last 24 Hours (Table) 04/29/21 Range/Units 07:43 Sodium 136 L (137-145) mmol/L Carbon Dioxide 18 L (22-30) mmol/L BUN 35 H (7-17) mg/dL Glucose 120 H (74-99) mg/dL Microbiology - Last 24 Hours (Table) 04/28/21 06:00 Urine Culture - Preliminary Urine,Voided Gram Neg Bacilli
[2021-04-30] MEDS: HYDROcodone/APAP 5-325MG 1 EACH TAB PO PRN ×3 (05:38→18:08)
[2021-04-30 05:57] VITALS: RESP 18
[2021-04-30] MEDS: carvediloL 3.125 MG TAB PO SCH ×2 (06:20→15:15)
[2021-04-30] MEDS: IPRATROPIUM 0.5 MG/2.5 ML NEBU INHALATION SCH ×5 (07:20→20:39)
[2021-04-30] MEDS: SYMBICORT 80-4.5 MCG INHALER INHALATION SCH ×2 (07:20→20:39)
[2021-04-30] MEDS: ENOXAPARIN 40 MG/0.4 ML SYRINGE SQ SCH (07:51)
[2021-04-30] MEDS: ASPIRIN 81 MG PO SCH (07:52)
[2021-04-30] MEDS: levETIRAcetam 500 MG TAB PO SCH ×2 (07:52→20:49)
[2021-04-30] MEDS: PANTOPRAZOLE 40 MG TABLET PO SCH (07:52)
[2021-04-30] MEDS: ISOSORBIDE MONONITRATE ER 30 MG TAB.ER.24H PO SCH (07:52)
[2021-04-30] MEDS: lisinopriL 20 MG TAB PO SCH (07:52)
[2021-04-30] MEDS: DEXAMETHASONE SOD PHOSPHATE 4 MG/ML 1 ML VIAL IVP SCH ×2 (07:53→20:49)
[2021-04-30] MEDS: CLOPIDOGREL 75 MG TAB PO SCH (07:53)
[2021-04-30] MEDS: amLODIPine 10 MG TAB PO SCH (07:53)
[2021-04-30] MEDS: CHOLECALCIFEROL 125 MCG (5000 IU) TABLET PO SCH (07:53)
[2021-04-30] MEDS: BALSALAZIDE DISODIUM 750 MG CAPSULE PO SCH ×3 (07:53→21:39)
--- NOTE | 2021-04-30 10:00 | P.PN ---
Subjective Progress Note Date: 04/29/21 04/29/2021: Patient was seen for a follow-up. Patient's daughter was also present today. Patient's daughter states that she had 3 brain surgeries, the first one was in 2002 but she had 2 subsequent surgeries. It was a benign brain tumor, and when I suggested if it was meningioma, she agreed. The neurosurgeon was not able to remove the tumor fully. She did not require any chemo or radiation for the residual meningioma. Patient had a grand mal seizure in 2004, for which she was started on seizure medication, but patient states that she stopped taking her seizure medication on her own. She has not had any seizure for a number of years. Patient's daughter agrees that she is almost back to baseline. She does have memory issues, but going on since her brain surgeries. She is not eating. 04/28/2021: Patient was seen for a follow-up. Patient initially seen by Dr. Demetrius Valle. Please refer to his note for details. Patient has history of left frontal tumor, that was removed by Dr. Hoff at [facility] in 2002. Patient has multiple brain surgeries and also had a shunt placed at one point, which subsequently had been removed. Patient has history of seizures after her first surgery in 2002, for which she was on seizure medication only for a short while. She has not had any seizure for a number of years. Patient came to the hospital because of altered mental status, aggressive behavior, rule out seizure. Per nurse report, when she tries to sit up, she feels spinning. Patient is having some apraxia, as she is not able to use objects which she usually can. Patient states her last MRI of the brain was in 2018. She was scheduled for a follow-up MRI of the brain as an outpatient, but she ended up coming to the hospital. Patient feels that she is frequently losing balance for the last 3-4 weeks, progressively getting worse. She tends to list to the right side. Objective - Vital Signs Vital signs: Vital Signs Temp 97.5 F L 04/30/21 07:30 Pulse 55 L 04/30/21 07:30 Resp 18 04/30/21 07:30 BP 177/77 04/30/21 07:30 Pulse Ox 100 04/30/21 07:30 Intake & Output 04/29/21 04/30/21 04/30/21 18:59 06:59 18:59 Intake Total 368 480 Balance 368 480 Weight 46.6 kg Intake: IV 20 Invasive Line 2 20 Oral 348 480 Other: # Voids 1 1 1 # Bowel Movements 2 1 - Exam On examination patient is alert and awake. Speech and language functions are normal. Detailed testing deferred. - Labs CBC & Chem 7: 04/29/21 07:43 04/29/21 07:43 Labs: Microbiology - Last 24 Hours (Table) 04/28/21 06:00 Urine Culture - Preliminary Urine,Voided Gram Neg Bacilli Assessment and Plan Assessment: * Altered mental status possibly due to metabolic encephalopathy with elevated the liver function. * History of left frontal meningioma, status post resection 3. Possible residual versus recurrence of tumor. * Mild Hepatopathy (mild elevated of AST of 129 and ALT 99) * Recent fracture on left wrist from fall. * Multiple falls with hospital visits. 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 * Hypertension * Crohn's disease * History of coronary artery disease status post stent * History of aortic valve replacement Plan: * MRI of the brain with and without contrast revealed 1.2 cm area of round ring enhancement which appears to communicate with the area of dural thickening and enhancement suspicious for recurrent neoplasm. Vasogenic edema is present. While there is likely post surgical encephalomalacia present an interval hemorrhage could be considered at the surgery site and repeat CT brain is recommended. Patient was given Decadron 10 mg IV 1 dose. We will decrease it to 4 mg twice a day. * Patient's daughter states that she contacted Dr. Hoff's office, her neurosurgeon, who asked her to bring a CD for his review. If he feels that the tumor has reoccurred, all grown in size, he will make an appointment for a follow-up. Patient probably going to rehab for 1 week. * Repeat CT had revealed no hemorrhage. May resume antiplatelet regimen and Lovenox for DVT prophylaxis. * EEG was performed, which was abnormal due to #1 background slowing and disorganization, consistent with toxic metabolic encephalopathy or related to diffuse structural brain abnormality. #2 relatively high amplitude activity seen in the left frontal central region, suggestive of breach rhythm due to craniotomy defect. No epileptiform activity was otherwise seen. * Continue Keppra 500 mg twice a day. * TSH is slightly low 0.338. Free T4 is normal 1.32. Defer to IM. * Vitamin B12 958, folate level 10.6. * Neurologically clear with the above recommendation. * Patient's daughter also recommended for patient to follow up with a neurologist as an outpatient in 2-4 weeks.
[2021-04-30 10:30] LABS: ALT 22 U/L (4-34); African American GFR (CKD) >90 (>60 ml/min/1.73 sqM); Albumin 2.5 g/dL (3.5-5.0); Anion Gap 7 mmol/L; Blood Urea Nitrogen 24 mg/dL (7-17); Calcium 9.5 mg/dL (8.4-10.2); Carbon Dioxide 19 mmol/L (22-30); Chloride 112 mmol/L (98-107); Glucose 159 mg/dL (74-99); Non-African American GFR(CKD) 81 (>60 ml/min/1.73 sqM); Sodium 138 mmol/L (137-145); Total Bilirubin 0.4 mg/dL (0.2-1.3)
[2021-04-30 10:32] LABS: AST 24 U/L (14-36); Alkaline Phosphatase 41 U/L (38-126); Potassium 3.5 mmol/L (3.5-5.1)
--- NOTE | 2021-04-30 14:35 | P.PN ---
Subjective Progress Note Date: 04/30/21 04/30/2021: Patient was seen in the hallway, walking with the therapist. Her gait has improved. Patient denies any headache, offers no complaints. Telemetry monitoring showing sinus rhythm, sinus bradycardia in 50s. 04/29/2021: Patient was seen for a follow-up. Patient's daughter was also present today. Patient's daughter states that she had 3 brain surgeries, the first one was in 2002 but she had 2 subsequent surgeries. It was a benign brain tumor, and when I suggested if it was meningioma, she agreed. The neurosurgeon was not able to remove the tumor fully. She did not require any chemo or radiation for the residual meningioma. Patient had a grand mal seizure in 2004, for which she was started on seizure medication, but patient states that she stopped taking her seizure medication on her own. She has not had any seizure for a number of years. Patient's daughter agrees that she is almost back to baseline. She does have memory issues, but going on since her brain surgeries. She is not eating. 04/28/2021: Patient was seen for a follow-up. Patient initially seen by Dr. Demetrius Valle. Please refer to his note for details. Patient has history of left frontal tumor, that was removed by Dr. Hoff at [facility] in 2002. Patient has multiple brain surgeries and also had a shunt placed at one point, which subsequently had been removed. Patient has history of seizures after her first surgery in 2002, for which she was on seizure medication only for a short while. She has not had any seizure for a number of years. Patient came to the hospital because of altered mental status, aggressive behavior, rule out seizure. Per nurse report, when she tries to sit up, she feels spinning. Patient is having some apraxia, as she is not able to use objects which she usually can. Patient states her last MRI of the brain was in 2018. She was scheduled for a follow-up MRI of the brain as an outpatient, but she ended up coming to the hospital. Patient feels that she is frequently losing balance for the last 3-4 weeks, progressively getting worse. She tends to list to the right side. Objective - Vital Signs Vital signs: Vital Signs Temp 98.5 F 04/30/21 11:57 Pulse 53 L 04/30/21 11:57 Resp 18 04/30/21 11:57 BP 147/65 04/30/21 11:57 Pulse Ox 95 04/30/21 11:57 Intake & Output 04/29/21 04/30/21 04/30/21 18:59 06:59 18:59 Intake Total 368 1040 Balance 368 1040 Weight 46.6 kg Intake: IV 20 Invasive Line 2 20 Oral 348 1040 Other: # Voids 1 1 1 # Bowel Movements 2 1 - Exam On examination patient is alert and awake. Speech and language functions are normal. Patient was seen in the hallway walking with the therapist. - Labs CBC & Chem 7: 04/29/21 07:43 04/30/21 09:50 Labs: Abnormal Lab Results - Last 24 Hours (Table) 04/30/21 Range/Units 09:50 Chloride 112 H (98-107) mmol/L Carbon Dioxide 19 L (22-30) mmol/L BUN 24 H (7-17) mg/dL Glucose 159 H (74-99) mg/dL Total Protein 5.0 L (6.3-8.2) g/dL Albumin 2.5 L (3.5-5.0) g/dL Microbiology - Last 24 Hours (Table) 04/28/21 06:00 Urine Culture - Final Urine,Voided Escherichia coli Assessment and Plan Assessment: * Altered mental status possibly due to metabolic encephalopathy with elevated the liver function. * History of left frontal meningioma, status post resection 3. Possible residual versus recurrence of tumor. * Elevated liver enzymes, now completely normalized. * Recent fracture on left wrist from fall. * Multiple falls with hospital visits. 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 * Hypertension * Crohn's disease * History of coronary artery disease status post stent * History of aortic valve replacement Plan: * MRI of the brain with and without contrast revealed 1.2 cm area of round ring enhancement which appears to communicate with the area of dural thickening and enhancement suspicious for recurrent neoplasm. Vasogenic edema is present. While there is likely post surgical encephalomalacia present an interval h emorrhage could be considered at the surgery site and repeat CT brain is recommended. Patient was given Decadron 10 mg IV 1 dose. We will decrease it to 4 mg twice a day. * Patient's daughter states that she contacted Dr. Hoff's office, her neurosurgeon, who asked her to bring a CD for his review. If he feels that the tumor has reoccurred, or grown in size, he will make an appointment for a follow-up. Patient probably going to rehab for 1 week. * Repeat CT had revealed no hemorrhage. May resume antiplatelet regimen and Lovenox for DVT prophylaxis. * EEG was performed, which was abnormal due to #1 background slowing and disorganization, consistent with toxic metabolic encephalopathy or related to diffuse structural brain abnormality. #2 relatively high amplitude activity seen in the left frontal central region, suggestive of breach rhythm due to craniotomy defect. No epileptiform activity was otherwise seen. * Continue Keppra 500 mg twice a day. Patient tolerating medication well with no side effects. * TSH is slightly low 0.338. Free T4 is normal 1.32. Defer to IM. * Vitamin B12 958, folate level 10.6. * Neurologically clear with the above recommendation. * Patient's daughter also recommended for patient to follow up with a neurologist as an outpatient in 2-4 weeks.
--- NOTE | 2021-04-30 18:03 | P.PN ---
<Gage Stoll - Last Filed: 04/30/21 17:58> Subjective Progress Note Date: 04/30/21 Hospital course: Patient is an 80-year-old female with a history of brain tumor status post re section approximately 10 years ago, Crohn's disease, and chronic back pain who was brought into the hospital on 04/26/21 by her daughter for reports of increased alteration in mental status. Patient has reportedly been experiencing increased confusion and was even seen previously at [facility] for altered mentation earlier this week. Patient's daughter reports patient has been so confused that she even suffered a fall breaking her wrist resulting in evaluation in the ER and placement of left wrist in splint. In the emergency department, patient underwent CT head which revealed findings of previous surgery with encephalomalacia of left frontal lobe with left frontal craniotomy defect and was negative for acute intercranial abnormalities. Chest x-ray was completed showing cardiomegaly with lower thoracic mild compression fractures of uncertain age. EKG was completed showing normal sinus rhythm at 67 bpm with a left bundle branch block and no previous EKGs available for comparison. Patient was admitted under our services with consultation to neurology. Initially patient was found to have significant hypokalemia with potassium of 2.7 which was replaced. And an elevated troponin of 0.055, 0.059, and 0.075. TSH 0.338 with free T4 of 1.32. Urinalysis positive for infection showing nitrites, leukocytes, and 38 WBCs. MRI and EEG completed 04/28/21. 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 Patient started on Decadron 10 mg IVP daily and Keppra 500 mg every 12 hours in order a stat CT head. Repeat CT negative for acute intracranial hemorrhage. Seizure precautions to remain in place. EEG showing abnormal findings consistent with toxic metabolic encephalopathy or related to diffuse structural brain abnormalities with relatively higher amplitude activity seen in the left frontal central regions suggestive of breach rhythm due to previous craniotomy with no eleptiform activity reported. Physical examination: Patient seen and examined at bedside. She remains alert and oriented to person, time, place and situation. She and her daughter had long discussion regarding SNF placement. Patient and daughter have decided for patient to go to rehab to work on regaining strength, balance, and endurance. Case management and social work working on arrangements at this time. Family [facility] [facility] to neurosurgeon and orthopedic surgeon location. Changes were made yesterday the patient's pain management regimen and she reports back pain is better controlled today. She continues to deny having any headache, lightheadedness, dizziness, changes in vision or hearing, chest pain, palpitations, shortness of breath, or experiencing any numbness/tingling/weakness in her extremities. General: non toxic, no distress, Appears older than stated age Derm: warm, dry Head: atraumatic, normocephalic, symmetric Eyes: EOMI, no lid lag, anicteric sclera Mouth: no lip lesion, mucus membranes moist Cardiovascular: S1S2 reg, no murmur, positive posterior tibial pulse bilateral, Lungs: CTA bilateral, no rhonchi, no rales , no accessory muscle use Abdominal: soft, nontender to palpation, no guarding, no appreciable organomegaly Ext: no gross muscle atrophy, no edema, no contractures. Splint/cast in place to left wrist and hand. Sensation and movement remains intact fingers. Cap refill less than 2 seconds. 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 -Decadron decreased to 4 mg twice a day as recommended by neurology and we will continue with Keppra 500 mg every 12 hours. -Repeat CT negative for acute intracranial hemorrhage. -Maintain seizure precautions -Neurology following, recommending patient follow up with neurosurgeon in 1 week upon discharge. -EEG showing abnormal findings consistent with toxic metabolic encephalopathy or related to diffuse structural brain abnormalities with relatively higher amp litude activity seen in the left frontal central regions suggestive of breach rhythm due to previous craniotomy with no eleptiform activity reported. -PT/OT -Continue close Neuro checks -Placement in SNF upon discharge Hypokalemia, resolved UTI -Rocephin 1 g every 24 hour. -Bladder management -Urine culture positive for E. coli Transaminitis, undetermined etiology -This is mild and likely inconsequential to her altered mentation -CMP to be repeated with a.m. labs. Nonspecific troponin elevation -Flat -EKG was completed showing normal sinus rhythm at 67 bpm with a left bundle branch block and no previous EKGs available for comparison. -Patient without chest pain -Not consistent with acute coronary syndrome Left wrist fracture -Symptomatic care and pain management with assistance as needed. -Outpatient follow-up with orthopedics COPD Continuation of Symbicort and encourage use of incentive spirometry. Hypertension -Monitor vital signs and continue daily medication regimen. History of CAD with previous [place] Continue daily medication regimen with amlodipine, Plavix, Imdur, and lisinopril. DVT prophylaxis: SCDs Discussed with: Patient and RN. Anticipated discharge: Likely tomorrow morning. Pending acceptance/insurance authorization to SNF Anticipated discharge place: SNF A total of 40 minutes was spent on the care of this complex patient more than 50% of the time was spent in counseling and care coordination. Objective - Vital Signs Vital signs: Vital Signs Temp 97.6 F 04/30/21 04:00 Pulse 58 L 04/30/21 04:00 Resp 18 04/30/21 04:00 BP 166/82 04/30/21 04:00 Pulse Ox 97 04/30/21 04:00 Intake & Output 04/29/21 04/30/21 04/30/21 18:59 06:59 18:59 Intake Total 368 Balance 368 Weight 46.6 kg Intake: IV 20 Invasive Line 2 20 Oral 348 Other: # Voids 1 1 # Bowel Movements 2 - Labs CBC & Chem 7: 04/29/21 07:43 04/30/21 09:50 Labs: Abnormal Lab Results - Last 24 Hours (Table) 04/29/21 Range/Units 07:43 Sodium 136 L (137-145) mmol/L Carbon Dioxide 18 L (22-30) mmol/L BUN 35 H (7-17) mg/dL Glucose 120 H (74-99) mg/dL Microbiology - Last 24 Hours (Table) 04/28/21 06:00 Urine Culture - Preliminary Urine,Voided Gram Neg Bacilli <Alexander Grover - Last Filed: 04/30/21 18:27> Subjective I am in agreement with assessment and plan as written above Objective - Vital Signs Vital signs: Vital Signs Temp 98.6 F 04/30/21 15:12 Pulse 59 L 04/30/21 15:12 Resp 18 04/30/21 15:12 BP 134/63 04/30/21 15:12 Pulse Ox 96 04/30/21 15:12 Intake & Output 04/29/21 04/30/21 04/30/21 18:59 06:59 18:59 Intake Total 368 1500 Balance 368 1500 Weight 46.6 kg Intake: IV 20 Invasive Line 2 20 Oral 348 1500 Other: # Voids 1 1 1 # Bowel Movements 2 1 - Labs CBC & Chem 7: 04/29/21 07:43 04/30/21 09:50 Labs: Abnormal Lab Results - Last 24 Hours (Table) 04/30/21 Range/Units 09:50 Chloride 112 H (98-107) mmol/L Carbon Dioxide 19 L (22-30) mmol/L BUN 24 H (7-17) mg/dL Glucose 159 H (74-99) mg/dL Total Protein 5.0 L (6.3-8.2) g/dL Albumin 2.5 L (3.5-5.0) g/dL Microbiology - Last 24 Hours (Table) 04/28/21 06:00 Urine Culture - Final Urine,Voided Escherichia coli
[2021-05-01] MEDS: HYDROcodone/APAP 5-325MG 1 EACH TAB PO PRN ×3 (00:27→15:02)
[2021-05-01] MEDS: carvediloL 3.125 MG TAB PO SCH ×2 (05:30→16:14)
[2021-05-01] MEDS: lisinopriL 20 MG TAB PO SCH (08:31)
[2021-05-01] MEDS: ASPIRIN 81 MG PO SCH (08:32)
[2021-05-01] MEDS: amLODIPine 10 MG TAB PO SCH (08:32)
[2021-05-01] MEDS: levETIRAcetam 500 MG TAB PO SCH (08:32)
[2021-05-01] MEDS: ISOSORBIDE MONONITRATE ER 30 MG TAB.ER.24H PO SCH (08:33)
[2021-05-01] MEDS: CLOPIDOGREL 75 MG TAB PO SCH (08:34)
[2021-05-01] MEDS: PANTOPRAZOLE 40 MG TABLET PO SCH (08:34)
[2021-05-01] MEDS: CHOLECALCIFEROL 125 MCG (5000 IU) TABLET PO SCH (08:35)
[2021-05-01] MEDS: ENOXAPARIN 40 MG/0.4 ML SYRINGE SQ SCH (08:35)
[2021-05-01] MEDS: DEXAMETHASONE SOD PHOSPHATE 4 MG/ML 1 ML VIAL IVP SCH (08:35)
[2021-05-01] MEDS: IPRATROPIUM 0.5 MG/2.5 ML NEBU INHALATION SCH ×3 (08:41→16:14)
[2021-05-01] MEDS: SYMBICORT 80-4.5 MCG INHALER INHALATION SCH (08:41)
[2021-05-01] MEDS: BALSALAZIDE DISODIUM 750 MG CAPSULE PO SCH ×2 (11:02→16:14)
[2021-05-01] MEDS ORDERED: MORPHINE SULFATE 2 MG/ML SYRINGE IVP STA (13:33)
--- NOTE | 2021-05-01 14:50 | P.DS ---
Providers Date of admission: 04/29/21 13:48 Expected date of discharge: 05/01/21 Attending physician: Marci Atkinson MD Consults: 04/26/21 23:25 Consult Physician Urgent Consulting Provider: Demetrius Valle Consult Reason/Comments: acute encephalopathy Do you want consulting provider notified?: Yes Primary care physician: Physician Nonstaff Hospital Course: Discharge Diagnosis: Acute metabolic encephalopathy History of brain tumor with left frontal resection and craniotomy now with encephalomalacia Findings of Vasogenic edema of the left frontal lobe per MRI report History of seizures Hypokalemia, resolved E. coli UTI Transaminitis, undetermined etiology Nonspecific troponin elevation Left wrist fracture COPD Hypertension History of CAD with previous [place] Hospital Course: Patient is an 80-year-old female with a history of brain tumor status post resection approximately 10 years ago, Crohn's disease, and chronic back pain who was brought into the hospital on 04/26/21 by her daughter for reports of increased alteration in mental status. Patient has reportedly been experiencing increased confusion and was even seen previously at [facility] for altered mentation earlier this week. Patient's daughter reports patient has been so confused that she even suffered a fall breaking her wrist resulting in evaluation in the ER and placement of left wrist in splint. In the emergency department, patient underwent CT head which revealed findings of previous surgery with encephalomalacia of left frontal lobe with left frontal craniotomy defect and was negative for acute intercranial abnormalities. Chest x-ray was completed showing cardiomegaly with lower thoracic mild compression fractures of uncertain age. EKG was completed showing normal sinus rhythm at 67 bpm with a left bundle branch block and no previous EKGs available for comparison. Patient was admitted under our services with consultation to neurology. Initially patient was found to have significant hypokalemia with potassium of 2.7 which was replaced. And an elevated troponin of 0.055, 0.059, and 0.075. TSH 0.338 with free T4 of 1.32. Urinalysis positive for infection showing nitrites, leukocytes, and 38 WBCs. Urine culture positive for E. coli. MRI and EEG completed 04/28/21. 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 Patient started on Decadron 10 mg IVP daily and Keppra 500 mg every 12 hours in order a stat CT head. Repeat CT negative for acute intracranial hemorrhage. Seizure precautions to remain in place. EEG showing abnormal findings consistent with toxic metabolic encephalopathy or related to diffuse structural brain abnormalities with relatively higher amplitude activity seen in the left frontal central regions suggestive of breach rhythm due to previous craniotomy with no eleptiform activity reported.. Patient underwent extensive evaluation by neurologist and cleared from neurology standpoint for discharge recommending follow-up with neurosurgeon within 1 week. Patient's condition stable. She received 3 days of IV antibiotics with Rocephin and is being discharged home on Keflex for 4 additional days to total a treatment course of 7 days of antibiotic therapy for E. coli UTI. After discussion with patient's daughter and evaluation by PT/OT, it is recommended for patient to go to SNF upon discharge. Patient's condition is stable and arrangements have been made for patient to be transferred to [facility] for continued treatment with physical therapy and occupational therapy. Patient and patient's daughter instructed of high importance of patient to follow-up with neurosurgeon within 1 week in orthopedic surgery as previously scheduled for left wrist fracture. Physical examination: Patient seen and examined at bedside. She continues to deny having any headache, lightheadedness, dizziness, changes in vision or hearing, chest pain, palpitations, shortness of breath, or experiencing any numbness/tingling/weakness in her extremities. General: non toxic, no distress, Appears older than stated age Derm: warm, dry Head: atraumatic, normocephalic, symmetric Eyes: EOMI, no lid lag, anicteric sclera Mouth: no lip lesion, mucus membranes moist Cardiovascular: S1S2 reg, no murmur, positive posterior tibial pulse bilateral, Lungs: CTA bilateral, no rhonchi, no rales , no accessory muscle use Abdominal: soft, nontender to palpation, no guarding, no appreciable organomegaly Ext: no gross muscle atrophy, no edema, no contractures. Splint/cast in place to left wrist and hand. Sensation and movement remains intact fingers. Cap refill less than 2 seconds. Neuro: CN II-XI grossly intact, no focal neuro deficits Psych: Alert, oriented, appropriate affect A total of 40 minutes of time were spent preparing this complex discharge summary. Patient Condition at Discharge: Stable Plan - Discharge Summary Discharge Rx Participant: No New Discharge Prescriptions: New Dexamethasone [Decadron] 4 mg PO BID 30 Days #60 tablet Cephalexin [Keflex] 500 mg PO Q8HR 4 Days #12 cap levETIRAcetam [Keppra] 500 mg PO Q12HR 30 Days #60 tab Continue Albuterol Sulfate [Albuterol Sulfate Hfa] 2 puff PO RT-Q6H PRN PRN Reason: Shortness Of Breath amLODIPine [Norvasc] 10 mg PO DAILY Biotin [Biotin Disolve] 5,000 mcg PO DAILY carvediloL [Coreg] 3.125 mg PO BID Clopidogrel Bisulfate [Plavix] 75 mg PO DAILY Fluticasone/Umeclidin/Vilanter [Trelegy Ellipta 100-62.5-25] 1 puff INHALATION RT-DAILY Isosorbide Mononitrate ER [Imdur] 30 mg PO DAILY Lansoprazole [Prevacid] 30 mg PO DAILY Mesalamine [Pentasa] 1,500 mg PO TID ALPRAZolam [Xanax] 0.5 mg PO HS PRN PRN Reason: Anxiety Aspirin 81 mg PO DAILY Cholecalciferol [Vitamin D3 (125 Mcg = 5000 Iu)] 125 mcg PO DAILY HYDROcodone/APAP 10-325MG [Sherman 10-325] 1 tab PO Q4HR PRN PRN Reason: Pain lisinopriL 40 mg PO DAILY Magnesium Gluconate [Magonate] 500 mg PO QID Nitroglycerin Sl Tabs [Nitrostat] 0.4 mg SUBLINGUAL Q5M PRN PRN Reason: Chest Pain Pantoprazole Sodium [Protonix] 40 mg PO DAILY Discharge Medication List ALPRAZolam [Xanax] 0.5 mg PO HS PRN 04/25/21 [History] Albuterol Sulfate [Albuterol Sulfate Hfa] 2 puff PO RT-Q6H PRN 04/25/21 [History] Aspirin 81 mg PO DAILY 04/25/21 [History] Biotin [Biotin Disolve] 5,000 mcg PO DAILY 04/25/21 [History] Cholecalciferol [Vitamin D3 (125 Mcg = 5000 Iu)] 125 mcg PO DAILY 04/25/21 [History] Clopidogrel Bisulfate [Plavix] 75 mg PO DAILY 04/25/21 [History] Fluticasone/Umeclidin/Vilanter [Trelegy Ellipta 100-62.5-25] 1 puff INHALATION RT-DAILY 04/25/21 [History] HYDROcodone/APAP 10-325MG [Sherman 10-325] 1 tab PO Q4HR PRN 04/25/21 [History] Isosorbide Mononitrate ER [Imdur] 30 mg PO DAILY 04/25/21 [History] Lansoprazole [Prevacid] 30 mg PO DAILY 04/25/21 [History] Magnesium Gluconate [Magonate] 500 mg PO QID 04/25/21 [History] Mesalamine [Pentasa] 1,500 mg PO TID 04/25/21 [History] Nitroglycerin Sl Tabs [Nitrostat] 0.4 mg SUBLINGUAL Q5M PRN 04/25/21 [History] Pantoprazole Sodium [Protonix] 40 mg PO DAILY 04/25/21 [History] amLODIPine [Norvasc] 10 mg PO DAILY 04/25/21 [History] carvediloL [Coreg] 3.125 mg PO BID 04/25/21 [History] lisinopriL 40 mg PO DAILY 04/25/21 [History] Cephalexin [Keflex] 500 mg PO Q8HR 4 Days #12 cap 04/29/21 [Rx] Dexamethasone [Decadron] 4 mg PO BID 30 Days #60 tablet 04/29/21 [Rx] levETIRAcetam [Keppra] 500 mg PO Q12HR 30 Days #60 tab 04/29/21 [Rx] Follow up Appointment(s)/Referral(s): Nonstaff,Physician [Primary Care Provider] - 1-2 days Activity/Diet/Wound Care/Special Instructions: Activity: As tolerated. Take breaks as needed. Diet: Heart healthy and carb consistent diet. Avoid salts, or foods with hidden salts such as canned or boxed foods and frozen dinners. Extra salt makes your heart work harder and traps the fluid in your body for longer. Special Instructions: Take all of your medications as directed and remember to keep all of your doctor's appointments and follow-up as needed. It is imperative that you follow up with your Neurosurgeon, Dr. Hoff in one week and bring MRI disk with you to your appointment. You also need to follow up outpatient as previously scheduled with your histology specialist for continued care of left wrist fracture. Thank you for allowing us to participate in your care, it was truly a pleasure having you for our patient!!! Discharge Disposition: TRANSFER TO SNF/ECF
--- NOTE | 2021-05-01 15:23 | P.PN ---
Subjective Progress Note Date: 05/01/21 05/01/2021: Patient laying comfortably in the bed. Patient denies any headache. No seizures. No confusion. No side effects of medication. 04/30/2021: Patient was seen in the hallway, walking with the therapist. Her gait has improved. Patient denies any headache, offers no complaints. Telemetry monitoring showing sinus rhythm, sinus bradycardia in 50s. 04/29/2021: Patient was seen for a follow-up. Patient's daughter was also present today. Patient's daughter states that she had 3 brain surgeries, the first one was in 2002 but she had 2 subsequent surgeries. It was a benign brain tumor, and when I suggested if it was meningioma, she agreed. The neurosurgeon was not able to remove the tumor fully. She did not require any chemo or radiation for the residual meningioma. Patient had a grand mal seizure in 2004, for which she was started on seizure medication, but patient states that she stopped taking her seizure medication on her own. She has not had any seizure for a number of years. Patient's daughter agrees that she is almost back to baseline. She does have memory issues, but going on since her brain surgeries. She is not eating. 04/28/2021: Patient was seen for a follow-up. Patient initially seen by Dr. Demetrius Valle. Please refer to his note for details. Patient has history of left frontal tumor, that was removed by Dr. Hoff at [facility] in 2002. Patient has multiple brain surgeries and also had a shunt placed at one point, which subsequently had been removed. Patient has history of seizures after her first surgery in 2002, for which she was on se izure medication only for a short while. She has not had any seizure for a number of years. Patient came to the hospital because of altered mental status, aggressive behavior, rule out seizure. Per nurse report, when she tries to sit up, she feels spinning. Patient is having some apraxia, as she is not able to use objects which she usually can. Patient states her last MRI of the brain was in 2018. She was scheduled for a follow-up MRI of the brain as an outpatient, but she ended up coming to the hospital. Patient feels that she is frequently losing balance for the last 3-4 weeks, progressively getting worse. She tends to list to the right side. Objective - Vital Signs Vital signs: Vital Signs Temp 98.6 F 05/01/21 04:00 Pulse 60 05/01/21 13:02 Resp 18 05/01/21 04:00 BP 159/72 05/01/21 08:00 Pulse Ox 96 05/01/21 04:00 Intake & Output 04/30/21 05/01/21 05/01/21 18:59 06:59 18:59 Intake Total 1500 120 358 Output Total 250 Balance 1500 -130 358 Weight 46.6 kg Intake: Oral 1500 120 358 Output: Urine 250 Other: # Voids 1 1 # Bowel Movements 1 1 - Exam On examination patient is alert and awake. Speech and language functions are normal. Muscle strength is normal in the right arm and both legs. Left arm and the cost. - Labs CBC & Chem 7: 04/29/21 07:43 04/30/21 09:50 Labs: Microbiology - Last 24 Hours (Table) 04/28/21 06:00 Urine Culture - Final Urine,Voided Escherichia coli Assessment and Plan Assessment: * Altered mental status possibly due to metabolic encephalopathy with elevated the liver function. Mental status back to normal. * History of left frontal meningioma, status post resection 3. Possible residual versus recurrence of tumor. * Elevated liver enzymes, now completely normalized. * Recent fracture on left wrist from fall. * Multiple falls with hospital visits. 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 * Hypertension * Crohn's disease * History of coronary artery disease status post stent * History of aortic valve replacement Plan: * MRI of the brain with and without contrast revealed 1.2 cm area of round ring enhancement which appears to communicate with the area of dural thickening and enhancement suspicious for recurrent neoplasm. Vasogenic edema is present. While there is likely post surgical encephalomalacia present an interval hemor rhage could be considered at the surgery site and repeat CT brain is recommended. Patient was given Decadron 10 mg IV 1 dose. We will decrease it to 4 mg twice a day. * Patient's daughter states that she contacted Dr. Hoff's office, her neurosurgeon, who asked her to bring a CD for his review. He will review her current MRI with the previous one. If he feels that the tumor has reoccurred, or grown in size, he will make an appointment for a follow-up. Patient going to rehab today if for 1 week. * Consider decreasing dexamethasone to 4 mg orally once daily. * Repeat CT had revealed no hemorrhage. May resume antiplatelet regimen and Lovenox for DVT prophylaxis. * EEG was performed, which was abnormal due to #1 background slowing and disorganization, consistent with toxic metabolic encephalopathy or related to diffuse structural brain abnormality. #2 relatively high amplitude activity s een in the left frontal central region, suggestive of breach rhythm due to craniotomy defect. No epileptiform activity was otherwise seen. * Continue Keppra 500 mg twice a day. Patient tolerating medication well with no side effects. * TSH is slightly low 0.338. Free T4 is normal 1.32. Defer to IM. * Vitamin B12 958, folate level 10.6. * Neurologically clear with the above recommendation. * Patient's daughter also recommended for patient to follow up with a neurologist as an outpatient in 2-4 weeks.
[2021-05-01 17:30] VITALS: BP 130/68; PULSE 52; TEMP 97.5
[2021-05-02] MEDS ORDERED: dexAMETHasone 4 MG TAB PO SCH (09:00)
== END 2021-05-01 16:30 | DRG 70 ==
LOC: EC 19:54 → 3SCARD 23:24 → OBSVTOIN 04-29 13:48
PROVIDERS: ADMIT Internal Medicine; ATTEND Internal Medicine
DX: G93.89 Other specified disorders of brain (principal); G93.6 Cerebral edema; N39.0 Urinary tract infection, site not specified; K50.90 Crohn's disease, unspecified, without complications; G92.8 Other toxic encephalopathy; F17.200 Nicotine dependence, unspecified, uncomplicated; G25.81 Restless legs syndrome; G40.409 Other generalized epilepsy and epileptic syndromes, not intractable, without status epilepticus; Z20.822 Contact with and (suspected) exposure to COVID-19; I25.10 Atherosclerotic heart disease of native coronary artery without angina pectoris; I25.2 Old myocardial infarction; J44.9 Chronic obstructive pulmonary disease, unspecified; B96.20 Unspecified Escherichia coli [E. coli] as the cause of diseases classified elsewhere; G31.84 Mild cognitive impairment of uncertain or unknown etiology; G89.29 Other chronic pain; E78.5 Hyperlipidemia, unspecified; E87.6 Hypokalemia; I10 Essential (primary) hypertension; I44.7 Left bundle-branch block, unspecified; R29.6 Repeated falls; R56.9 Unspecified convulsions; R74.8 Abnormal levels of other serum enzymes; R77.8 Other specified abnormalities of plasma proteins; Z79.02 Long term (current) use of antithrombotics/antiplatelets; Z79.82 Long term (current) use of aspirin; Z79.899 Other long term (current) drug therapy; Z86.73 Personal history of transient ischemic attack (TIA), and cerebral infarction without residual deficits; Z90.710 Acquired absence of both cervix and uterus; Z95.2 Presence of prosthetic heart valve; Z95.5 Presence of coronary angioplasty implant and graft
CPT/HCPCS: 36415; 70450; 70553; 71046; 80048; 80053; 80143; 80179; 80306; 80320; 81001; 82140; 82550; 82607; 82746; 83735; 84132; 84439; 84443; 84484; 85025; 85027; 85610; 85730; 87077; 87086; 87186; 87635; 93005; 94640; 95816; 96361; 96374; 99285

== ENCOUNTER 2021-06-19 10:25 | Inpatient (IN) | payer MEDICARE, BC ==
[2021-06-19] MEDS ORDERED: SODIUM CHLORIDE 0.9% 500 ML 500 ML IV STA (10:53)
--- NOTE | 2021-06-19 10:57 | ED ---
General Adult HPI - General Chief complaint: Weakness Stated complaint: AMS Time Seen by Provider: 06/19/21 10:28 Source: family, EMS, RN notes reviewed, old records reviewed Mode of arrival: EMS Limitations: altered mental status - History of Present Illness Initial comments: 80-year-old female presenting from home with increased confusion, poor appetite. 5 days of coronavirus. Patient was not previously vaccinated. History is obtained entirely from EMS and the patient's daughter who is at bedside. Patient has had a recent fall with head trauma this occurred several days ago. She had a fall in March which began a steady decline. She's had poor appetite over the past several days. No fever. She had some diarrhea prior to arrival. - Related Data Home Medications Medication Instructions Recorded Confirmed ALPRAZolam [Xanax] 0.5 mg PO HS PRN 04/25/21 06/19/21 Albuterol Sulfate [Albuterol 2 puff PO RT-Q6H PRN 04/25/21 06/19/21 Sulfate Hfa] Aspirin 81 mg PO DAILY 04/25/21 06/19/21 Biotin [Biotin Disolve] 5,000 mcg PO DAILY 04/25/21 06/19/21 Cholecalciferol [Vitamin D3 (125 125 mcg PO HS 04/25/21 06/19/21 Mcg = 5000 Iu)] Clopidogrel Bisulfate [Plavix] 75 mg PO DAILY 04/25/21 06/19/21 Fluticasone/Umeclidin/Vilanter 1 puff INHALATION RT-DAILY 04/25/21 06/19/21 [Trelegy Ellipta 100-62.5-25] HYDROcodone/APAP 10-325MG [[place] 1 tab PO Q4HR PRN 04/25/21 06/19/21 10-325] Isosorbide Mononitrate ER [Imdur] 30 mg PO DAILY 04/25/21 06/19/21 Magnesium Gluconate [Magonate] 500 mg PO QID 04/25/21 06/19/21 Mesalamine [Pentasa] 1,500 mg PO TID 04/25/21 06/19/21 Nitroglycerin Sl Tabs [Nitrostat] 0.4 mg SUBLINGUAL Q5M PRN 04/25/21 06/19/21 Pantoprazole Sodium [Protonix] 40 mg PO DAILY 04/25/21 06/19/21 amLODIPine [Norvasc] 10 mg PO DAILY 04/25/21 06/19/21 carvediloL [Coreg] 3.125 mg PO BID 04/25/21 06/19/21 lisinopriL 40 mg PO DAILY 04/25/21 06/19/21 Pravastatin Sodium [Pravachol] 20 mg PO DAILY 06/19/21 06/19/21 Allergies Allergy/AdvReac Type Severity Reaction Status Date / Time No Known Allergies Allergy Verified 06/19/21 12:07 Review of Systems ROS Statement: Those systems with pertinent positive or pertinent negative responses have been documented in the HPI. ROS Other: All systems not noted in ROS Statement are negative. Past Medical History Past Medical History: COPD, Hyperlipidemia, Hypertension, Myocardial Infarction ([place]), Seizure Disorder Additional Past Medical History / Comment(s): brain tumor Last Myocardial Infarction Date:: . History of Any Multi-Drug Resistant Organisms: None Reported Past Surgical History: Appendectomy, Bowel Resection, Heart Catheterization With Stent, Hernia Repair, Hysterectomy Additional Past Surgical History / Comment(s): brain surgeryx 2, crhon's, aortic valve replacment Date of Last Stent Placement:: . Past Psychological History: No Psychological Hx Reported Smoking Status: Current every day smoker Past Alcohol Use History: None Reported Past Drug Use History: Unable to Obtain General Exam Limitations: altered mental status General appearance: lethargic, cachectic Head exam: Present: atraumatic, normocephalic Eye exam: Present: PERRL ENT exam: Present: mucous membranes dry Respiratory exam: Present: wheezes, rhonchi. Absent: respiratory distress Cardiovascular Exam: Present: regular rate, normal rhythm GI/Abdominal exam: Present: soft. Absent: distended, tenderness, guarding, rebound Extremities exam: Present: normal inspection, normal capillary refill. Absent: pedal edema Neurological exam: Absent: oriented X3 Skin exam: Present: warm, dry, intact. Absent: cyanosis, diaphoretic Course Vital Signs 06/19/21 06/19/21 10:31 11:33 Temperature 97.6 F Pulse Rate 57 L 57 L Respiratory 15 14 Rate Blood Pressure 107/55 126/56 O2 Sat by Pulse 99 97 Oximetry EKG Findings - EKG Comments: EKG Findings:: EKG: Sinus bradycardia, left bundle branch block, history of left bundle branch block, rate of 57, AL interval 144, QRS duration 136, QTC 418. Medical Decision Making - Medical Decision Making 80-year-old female with coronavirus for 5 days, worsening confusion and poor appetite, failure to thrive. Patient has normal CBC, she has a potassium 2.6 replaced with IV potassium, she is in acute renal failure. She does appear dehydrated. Chest x-ray shows minimal basilar infiltrate. Head CT negative for acute process. Patient will be admitted for IV hydration to light replacement. Case discussed with [facility] physician group who will admit. - Lab Data Result diagrams: 06/19/21 10:59 06/19/21 10:59 Lab Results 06/19/21 06/19/21 06/19/21 Range/Units 10:59 10:59 10:59 WBC 6.1 (3.8-10.6) k/uL RBC 4.75 (3.80-5.40) m/uL Hgb 13.5 (11.4-16.0) gm/dL Hct 44.5 (34.0-46.0) % MCV 93.7 (80.0-100.0) fL MCH 28.4 (25.0-35.0) pg MCHC 30.3 L (31.0-37.0) g/dL RDW 17.1 H (11.5-15.5) % Plt Count 201 (150-450) k/uL MPV 10.2 Hypochromasia Marked Anisocytosis Slight PT 9.6 (9.0-12.0) sec INR 0.9 (<1.2) APTT 21.5 L (22.0-30.0) sec Sodium 146 H (137-145) mmol/L Potassium 2.6 L* (3.5-5.1) mmol/L Chloride 111 H (98-107) mmol/L Carbon Dioxide 24 (22-30) mmol/L Anion Gap 11 mmol/L BUN 51 H (7-17) mg/dL Creatinine 1.91 H (0.52-1.04) mg/dL Est GFR (CKD-EPI)AfAm 28 (>60 ml/min/1.73 sqM) Est GFR (CKD-EPI)NonAf 24 (>60 ml/min/1.73 sqM) Glucose 127 H (74-99) mg/dL Plasma Lactic Acid Esteban (0.7-2.0) mmol/L Calcium 9.7 (8.4-10.2) mg/dL Magnesium 3.2 H (1.6-2.3) mg/dL Total Bilirubin 0.5 (0.2-1.3) mg/dL AST 31 (14-36) U/L ALT 20 (4-34) U/L Alkaline Phosphatase 89 (38-126) U/L Total Protein 5.9 L (6.3-8.2) g/dL Albumin 3.1 L (3.5-5.0) g/dL Urine Color Urine Appearance (Clear) Urine pH (5.0-8.0) Ur Specific [place] (1.001-1.035) Urine Protein (Negative) Urine Glucose (UA) (Negative) Urine Ketones (Negative) Urine Blood (Negative) Urine Nitrite (Negative) Urine Bilirubin (Negative) Urine Urobilinogen (<2.0) mg/dL Ur Leukocyte Esterase (Negative) Urine WBC (0-5) /hpf Ur Squamous Epith Cells (0-4) /hpf Urine Bacteria (None) /hpf Hyaline Casts (0-2) /lpf Urine Mucus (None) /hpf Ur Yeast w Hyphae (None) /hpf Urine Yeast (Budding) (None) /hpf 06/19/21 06/19/21 Range/Units 10:59 12:03 WBC (3.8-10.6) k/uL RBC (3.80-5.40) m/uL Hgb (11.4-16.0) gm/dL Hct (34.0-46.0) % MCV (80.0-100.0) fL MCH (25.0-35.0) pg MCHC (31.0-37.0) g/dL RDW (11.5-15.5) % Plt Count (150-450) k/uL MPV Hypochromasia Anisocytosis PT (9.0-12.0) sec INR (<1.2) APTT (22.0-30.0) sec Sodium (137-145) mmol/L Potassium (3.5-5.1) mmol/L Chloride (98-107) mmol/L Carbon Dioxide (22-30) mmol/L Anion Gap mmol/L BUN (7-17) mg/dL Creatinine (0.52-1.04) mg/dL Est GFR (CKD-EPI)AfAm (>60 ml/min/1.73 sqM) Est GFR (CKD-EPI)NonAf (>60 ml/min/1.73 sqM) Glucose (74-99) mg/dL Plasma Lactic Acid Esteban 1.6 (0.7-2.0) mmol/L Calcium (8.4-10.2) mg/dL Magnesium (1.6-2.3) mg/dL Total Bilirubin (0.2-1.3) mg/dL AST (14-36) U/L ALT (4-34) U/L Alkaline Phosphatase (38-126) U/L Total Protein (6.3-8.2) g/dL Albumin (3.5-5.0) g/dL Urine Color Yellow Urine Appearance Cloudy H (Clear) Urine pH 5.5 (5.0-8.0) Ur Specific [place] 1.025 (1.001-1.035) Urine Protein Trace H (Negative) Urine Glucose (UA) Negative (Negative) Urine Ketones Negative (Negative) Urine Blood Negative (Negative) Urine Nitrite Negative (Negative) Urine Bilirubin 2+ H (Negative) Urine Urobilinogen 2.0 (<2.0) mg/dL Ur Leukocyte Esterase Negative (Negative) Urine WBC 3 (0-5) /hpf Ur Squamous Epith Cells 7 H (0-4) /hpf Urine Bacteria Rare H (None) /hpf Hyaline Casts 8 H (0-2) /lpf Urine Mucus Rare H (None) /hpf Ur Yeast w Hyphae Rare (None) /hpf Urine Yeast (Budding) Moderate H (None) /hpf Disposition Clinical Impression: Dehydration, Metabolic encephalopathy, Acute renal failure, COVID-19 Disposition: ADMITTED IP TO THIS [facility] Condition: Stable Is patient prescribed a controlled substance at d/c from ED?: No Referrals: Nonstaff,Physician [REFERRING] - 1-2 days Decision to Admit Reason: Admit from EC Decision Date: 06/19/21 Decision Time: 12:58
[2021-06-19 11:33] LABS: Anisocytosis Slight; HCT 44.5 % (34.0-46.0); HGB 13.5 gm/dL (11.4-16.0); Hypochromasia Marked; MCH 28.4 pg (25.0-35.0); MCHC 30.3 g/dL (31.0-37.0); MCV 93.7 fL (80.0-100.0); Mean Platelet Volume 10.2; Platelet Count 201 k/uL (150-450); RBC 4.75 m/uL (3.80-5.40); RDW 17.1 % (11.5-15.5); WBC 6.1 k/uL (3.8-10.6)
[2021-06-19 11:39] LABS: Albumin 3.1 g/dL (3.5-5.0); Calcium 9.7 mg/dL (8.4-10.2); Magnesium 3.2 mg/dL (1.6-2.3); Total Bilirubin 0.5 mg/dL (0.2-1.3); Total Protein 5.9 g/dL (6.3-8.2)
--- NOTE | 2021-06-19 11:41 | XR ---
EXAMINATION TYPE: XR chest 1V portable DATE OF EXAM: 06/19/2021 COMPARISON: CXR from 04/26/2021. HISTORY: Chest pain after fall. TECHNIQUE: Single portable frontal view of the chest is obtained. FINDINGS: Osseous structures are demineralized. Elevated left hemidiaphragm is present. Persistent c ardiomegaly without thoracic aorta. Persistent chronic parenchymal changes bilaterally with small rig ht pleural effusion and bibasilar opacities are current study. Overlying EKG leads are present. Patie nt is rotated to the right on current study similar to prior study. IMPRESSION: Chronic changes and cardiomegaly with small right pleural effusion and bibasilar acute i nfiltrate and/or atelectasis seen currently.
[2021-06-19 11:46] LABS: Potassium 2.6 mmol/L (3.5-5.1)
--- NOTE | 2021-06-19 11:52 | CT ---
EXAMINATION TYPE: CT brain wo con DATE OF EXAM: 06/19/2021 HISTORY: Fall x [address] DLP: 1084.4 mGycm. Automated Exposure Control for Dose Reduction was Utilized. TECHNIQUE: CT scan of the head is performed without contrast. COMPARISON: CT brain April 28, 2021. FINDINGS: There is no acute intracranial hemorrhage or midline shift identified. There is mild to m oderate diffuse ventricular and sulcal prominence consistent with diffuse age-related cerebral atroph y. There is moderate to severe low-attenuation in the periventricular white matter consistent with c hronic small vessel ischemic change. 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 The globes are intact and the visualized sinuses are clear . IMPRESSION: No acute intracranial hemorrhage or midline shift. As above. No significant change from prior.
[2021-06-19 11:55] LABS: INR 0.9 (<1.2); Prothrombin Time 9.6 sec (9.0-12.0)
[2021-06-19] MEDS: POTASSIUM CHLORIDE 10 MEQ in WATER FOR INJECTION 1 100ML.BAG IVPB SCH ×5 (12:01→23:56)
[2021-06-19 12:03] LABS: Partial Thromboplastin Time 21.5 sec (22.0-30.0)
[2021-06-19] MEDS ORDERED: HYDROcodone/APAP 10-325MG 1 EACH TAB PO ONE (12:04)
[2021-06-19 12:39] LABS: Appearance,Urine Cloudy (Clear); Bacteria,Urine Rare /hpf; Bilirubin,Urine 2+ (Negative); Blood,Urine Negative (Negative); Budding Yeast,Urine Moderate /hpf; Color,Urine Yellow; Glucose,Urine (UA) Negative (Negative); Hyaline Casts,Urine 8 /lpf (0-2); Hyphae Yeast, Urine Rare /hpf; Ketones,Urine Negative (Negative); Leukocyte Esterase,Urine Negative (Negative); Mucus,Urine Rare /hpf; Nitrite,Urine Negative (Negative); PH, Urine 5.5 (5.0-8.0); Protein,Urine Trace (Negative); Specific Gravity,Urine 1.025 (1.001-1.035); Squamous Epithelial Cell,Urine 7 /hpf (0-4); WBC,Urine 3 /hpf (0-5)
[2021-06-19] MEDS ORDERED: HYDROcodone/APAP 5-325MG 1 EACH TAB PO PRN (12:45)
[2021-06-19] MEDS ORDERED: MAG HYDROX/AL HYDROX/SIMETH 30 ML CUP PO PRN (12:50)
[2021-06-19] MEDS ORDERED: NALOXONE 0.4 MG/ML 1 ML VIAL IV PRN (12:50)
[2021-06-19] MEDS ORDERED: ONDANSETRON 4 MG/2 ML VIAL IVP PRN (12:50)
--- NOTE | 2021-06-19 13:10 | P.HPIM ---
History of Present Illness H&P Date: 06/19/21 80 years old female with multiple medical problems including meningioma carotid artery disease suspected dementia admitted to the hospital for not feeling well and decrease by mouth intake and being more lethargic and confused in the last few days the patient has been recently diagnosed with COVID-19 infection around 5 days ago Patient also has been coughing Review of systems unable to get due to current condition of the patient Constitutional: Confused and lethargic Eyes: Anicteric sclerae, moist conjunctiva, no lid-lag PERRLA ENMT: NC/AT Oropharynx clear, no erythema, exudates Neck: Supple, FROM, no masses, or JVD No carotid bruits No thyromegaly Lungs: Clear to auscultation Clear to percussion Normal respiratory effort, no accessory muscle use Cardiovascular: Heart regular in rate and rhythm, No murmurs, gallops, or rubs No peripheral edema Abdominal: Soft Nontender, no guarding, rebound or rigidity Abdomen moving with respiration Normoactive bowel sounds No hepatomegaly, No splenomegaly No palpable mass No abdominal wall hernia noted Skin: Normal temperature, tone, texture, turgor No induration No subcutaneous nodules No rash, lesions No ulcers Extremities: No digital cyanosis No clubbing Pedal pulses intact and symmetrical Radial pulses intact and symmetrical Normal gait and station No calf tenderness Psychiatric:Alert and oriented to person, place and time Appropriate affect Intact judgement Neuro: Generalized weakness Acute renal failure likely due to dehydration Lethargy suspected metabolic encephalopathy pneumonia cannot be ruled out due to COVID-19 infection. The patient Nelda on IV antibiotics Dementia cannot be ruled out Generalized weakness COVID-19 infection Meningioma with history of surgery' Multiple medical problems Past Medical History Past Medical History: COPD, Hyperlipidemia, Hypertension, Myocardial Infarction ([place]), Seizure Disorder Additional Past Medical History / Comment(s): brain tumor Last Myocardial Infarction Date:: . History of Any Multi-Drug Resistant Organisms: None Reported Past Surgical History: Appendectomy, Bowel Resection, Heart Catheterization With Stent, Hernia Repair, Hysterectomy Additional Past Surgical History / Comment(s): brain surgeryx 2, crhon's, aortic valve replacment Date of Last Stent Placement:: . Past Psychological History: No Psychological Hx Reported Smoking Status: Current every day smoker Past Alcohol Use History: None Reported Past Drug Use History: Unable to Obtain Medications and Allergies Home Medications Medication Instructions Recorded Confirmed Type ALPRAZolam [Xanax] 0.5 mg PO HS PRN 04/25/21 06/19/21 History Albuterol Sulfate [Albuterol 2 puff PO RT-Q6H PRN 04/25/21 06/19/21 History Sulfate Hfa] Aspirin 81 mg PO DAILY 04/25/21 06/19/21 History Biotin [Biotin Disolve] 5,000 mcg PO DAILY 04/25/21 06/19/21 History Cholecalciferol [Vitamin D3 (125 125 mcg PO HS 04/25/21 06/19/21 History Mcg = 5000 Iu)] Clopidogrel Bisulfate [Plavix] 75 mg PO DAILY 04/25/21 06/19/21 History Fluticasone/Umeclidin/Vilanter 1 puff INHALATION RT-DAILY 04/25/21 06/19/21 History [Trelegy Ellipta 100-62.5-25] HYDROcodone/APAP 10-325MG [[place] 1 tab PO Q4HR PRN 04/25/21 06/19/21 History 10-325] Isosorbide Mononitrate ER [Imdur] 30 mg PO DAILY 04/25/21 06/19/21 History Magnesium Gluconate [Magonate] 500 mg PO QID 04/25/21 06/19/21 History Mesalamine [Pentasa] 1,500 mg PO TID 04/25/21 06/19/21 History Nitroglycerin Sl Tabs [Nitrostat] 0.4 mg SUBLINGUAL Q5M PRN 04/25/21 06/19/21 History Pantoprazole Sodium [Protonix] 40 mg PO DAILY 04/25/21 06/19/21 History amLODIPine [Norvasc] 10 mg PO DAILY 04/25/21 06/19/21 History carvediloL [Coreg] 3.125 mg PO BID 04/25/21 06/19/21 History lisinopriL 40 mg PO DAILY 04/25/21 06/19/21 History Pravastatin Sodium [Pravachol] 20 mg PO DAILY 06/19/21 06/19/21 History Allergies Allergy/AdvReac Type Severity Reaction Status Date / Time No Known Allergies Allergy Verified 06/19/21 12:07 Physical Exam Vitals: Vital Signs Temp Pulse Resp BP Pulse Ox 06/19/21 11:33 57 L 14 126/56 97 06/19/21 10:31 97.6 F 57 L 15 107/55 99 Intake and Output 06/18/21 06/19/21 06/19/21 22:59 06:59 14:59 Other: Weight 49.895 kg Results CBC & Chem 7: 06/19/21 10:59 06/19/21 10:59 Labs: Abnormal Lab Results - Last 24 Hours (Table) 06/19/21 06/19/21 06/19/21 Range/Units 10:59 10:59 10:59 MCHC 30.3 L (31.0-37.0) g/dL RDW 17.1 H (11.5-15.5) % APTT 21.5 L (22.0-30.0) sec Sodium 146 H (137-145) mmol/L Potassium 2.6 L* (3.5-5.1) mmol/L Chloride 111 H (98-107) mmol/L BUN 51 H (7-17) mg/dL Creatinine 1.91 H (0.52-1.04) mg/dL Glucose 127 H (74-99) mg/dL Magnesium 3.2 H (1.6-2.3) mg/dL Total Protein 5.9 L (6.3-8.2) g/dL Albumin 3.1 L (3.5-5.0) g/dL Urine Appearance (Clear) Urine Protein (Negative) Urine Bilirubin (Negative) Ur Squamous Epith Cells (0-4) /hpf Urine Bacteria (None) /hpf Hyaline Casts (0-2) /lpf Urine Mucus (None) /hpf Urine Yeast (Budding) (None) /hpf 06/19/21 Range/Units 12:03 MCHC (31.0-37.0) g/dL RDW (11.5-15.5) % APTT (22.0-30.0) sec Sodium (137-145) mmol/L Potassium (3.5-5.1) mmol/L Chloride (98-107) mmol/L BUN (7-17) mg/dL Creatinine (0.52-1.04) mg/dL Glucose (74-99) mg/dL Magnesium (1.6-2.3) mg/dL Total Protein (6.3-8.2) g/dL Albumin (3.5-5.0) g/dL Urine Appearance Cloudy H (Clear) Urine Protein Trace H (Negative) Urine Bilirubin 2+ H (Negative) Ur Squamous Epith Cells 7 H (0-4) /hpf Urine Bacteria Rare H (None) /hpf Hyaline Casts 8 H (0-2) /lpf Urine Mucus Rare H (None) /hpf Urine Yeast (Budding) Moderate H (None) /hpf
[2021-06-19] MEDS: SODIUM CHLORIDE 0.9% 1,000 ML IV SCH ×2 (13:39→19:56)
[2021-06-19 15:41] LABS: Band Neutrophils % 8 %; Lymphocytes # (M) 1.59 k/uL (1.0-4.8); Metamyelocytes # (M) 0.12 k/uL (0); Metamyelocytes % 2 %; Monocytes # (M) 0.55 k/uL (0-1.0); Neutrophils % (M) 55 %; Nucleated Red Blood Cells 0 /100 WBC (0-0); Total Cells Counted 100
[2021-06-19 15:43] LABS: Ovalocytes Present; Poikilocytosis (M) Present; Toxic Vacuolation Present
[2021-06-19] MEDS: BALSALAZIDE DISODIUM 750 MG CAPSULE PO SCH ×2 (17:15→19:56)
[2021-06-19] MEDS: HYDROcodone/APAP 10-325MG 1 EACH TAB PO PRN (17:24)
[2021-06-19] MEDS: carvediloL 3.125 MG TAB PO SCH (17:24)
[2021-06-19] MEDS: AZITHROMYCIN 500 MG in SODIUM CHLORIDE 0.9% 250 ML IVPB SCH (18:58)
[2021-06-19] MEDS: ALPRAZolam 0.5 MG TAB PO PRN (19:56)
[2021-06-20] MEDS: POTASSIUM CHLORIDE 10 MEQ in WATER FOR INJECTION 1 100ML.BAG IVPB SCH ×5 (00:57→05:08)
[2021-06-20] MEDS: SODIUM CHLORIDE 0.9% 1,000 ML IV SCH ×3 (03:05→20:56)
[2021-06-20] MEDS: BALSALAZIDE DISODIUM 750 MG CAPSULE PO SCH ×3 (09:06→20:56)
[2021-06-20] MEDS: PANTOPRAZOLE 40 MG TABLET PO SCH (09:06)
[2021-06-20] MEDS: DEXAMETHASONE SOD PHOSPHATE 10 MG/ML 1 ML VIAL IVP SCH (09:06)
[2021-06-20] MEDS: carvediloL 3.125 MG TAB PO SCH ×2 (09:06→17:45)
[2021-06-20] MEDS: ASPIRIN 81 MG PO SCH (09:07)
[2021-06-20] MEDS: CLOPIDOGREL 75 MG TAB PO SCH (09:07)
[2021-06-20] MEDS: AZITHROMYCIN 500 MG in SODIUM CHLORIDE 0.9% 250 ML IVPB SCH (09:30)
[2021-06-20 11:04] LABS: Basophils # (A) 0.03 X 10*3/uL (0.00-0.10); Basophils % (A) 0.5 %; Eosinophils # (A) 0.01 X 10*3/uL (0.04-0.35); Eosinophils % (A) 0.2 %; HCT 42.8 % (37.2-46.3); HGB 12.1 g/dL (12.0-15.0); Lymphocytes # (A) 1.02 X 10*3/uL (0.90-5.00); Lymphocytes % (A) 17.5 %; MCH 27.6 pg (27.0-32.0); MCHC 28.3 g/dL (32.0-37.0); MCV 97.5 fL (80.0-97.0); Mean Platelet Volume 11.5 fL (9.5-12.2); Monocytes # (A) 0.39 X 10*3/uL (0.20-1.00); Monocytes % (A) 6.7 %; Neutrophils # (A) 4.34 X 10*3/uL (1.80-7.70); Neutrophils % (A) 74.6 %; Platelet Count 209 X 10*3/uL (140-440); RBC 4.39 X 10*6/uL (4.10-5.20); RDW 19.3 % (11.5-14.5); WBC 5.82 X 10*3/uL (4.50-10.00)
[2021-06-20 11:13] LABS: ALT 14 U/L (8-44); AST 24 U/L (13-35); African American GFR (CKD) 61.6 (60.0-200.0); Albumin 2.8 g/dL (3.8-4.9); Alkaline Phosphatase 77 U/L (41-126); Blood Urea Nitrogen 33.5 mg/dL (9.0-27.0); Calcium 8.4 mg/dL (8.7-10.3); Carbon Dioxide 15.4 mmol/L (20.0-27.5); Chloride 121 mmol/L (96-109); Glucose 85 mg/dL (70-110); Non-African American GFR(CKD) 53.2 (60.0-200.0); Potassium 3.2 mmol/L (3.5-5.5); Sodium 151 mmol/L (135-145); Total Bilirubin <0.20 mg/dL (0.30-1.20); Total Protein 4.8 g/dL (6.2-8.2)
--- NOTE | 2021-06-20 11:25 | P.PN ---
Subjective Progress Note Date: 06/20/21 Principal diagnosis: 80 years old female with multiple medical problems including meningioma carotid artery disease suspected dementia admitted to the hospital for not feeling well and decrease by mouth intake and being more lethargic and confused in the last few days the patient has been recently diagnosed with COVID-19 infection around 5 days ago Patient also has been coughing Review of systems unable to get due to current condition of the patient Constitutional: Still confused but more awake today Eyes: Anicteric sclerae, moist conjunctiva, no lid-lag PERRLA ENMT: NC/AT Oropharynx clear, no erythema, exudates Neck: Supple, FROM, no masses, or JVD No carotid bruits No thyromegaly Lungs: Clear to auscultation Clear to percussion Normal respiratory effort, no accessory muscle use Cardiovascular: Heart regular in rate and rhythm, No murmurs, gallops, or rubs No peripheral edema Abdominal: Soft Nontender, no guarding, rebound or rigidity Abdomen moving with respiration Normoactive bowel sounds No hepatomegaly, No splenomegaly No palpable mass No abdominal wall hernia noted Skin: Normal temperature, tone, texture, turgor No induration No subcutaneous nodules No rash, lesions No ulcers Extremities: No digital cyanosis No clubbing Pedal pulses intact and symmetrical Radial pulses intact and symmetrical Normal gait and station No calf tenderness Psychiatric:Alert and oriented to person, place and time Appropriate affect Intact judgement Neuro: Generalized weakness Acute renal failure likely due to dehydration Overall slowly improving continue supportive treatment Lethargy suspected metabolic encephalopathy pneumonia cannot be ruled out due to COVID-19 infection. The patient Nelda on IV antibiotics Dementia cannot be ruled out Generalized weakness COVID-19 infection Meningioma with history of surgery' Multiple medical problems Objective - Vital Signs Vital signs: Vital Signs Temp 97.5 F L 06/20/21 10:05 Pulse 67 06/20/21 10:05 Resp 18 06/20/21 10:05 BP 145/59 06/20/21 10:05 Pulse Ox 98 06/20/21 10:05 Intake & Output 06/19/21 06/20/21 06/20/21 18:59 06:59 18:59 Intake Total 940 Balance 940 Weight 49.895 kg Intake: Intake, IV Titration 840 Amount Potassium Chloride 10 meq 400 In Water For Injection 1 100ml.bag @ 100 mls/hr IVPB Q1HR [facility] Rx#: [id number] Sodium Chloride 0.9% 1, 390 000 ml @ 130 mls/hr IV . Q7H42M [facility] Rx#:[id number] cefTRIAXone 1 gm In 50 Sodium Chloride 0.9% 50 ml @ 100 mls/hr IVPB DAILY [facility] Rx#:[id number] Oral 100 Other: Voiding Method Toilet Diaper Diaper Diaper Incontinent Incontinent # Voids 1 1 # Bowel Movements 1 - Labs CBC & Chem 7: 06/20/21 07:43 06/20/21 07:43 Labs: Abnormal Lab Results - Last 24 Hours (Table) 06/19/21 06/19/21 06/19/21 Range/Units 10:59 10:59 10:59 MCV (80.0-97.0) fL MCHC 30.3 L (31.0-37.0) g/dL RDW 17.1 H (11.5-15.5) % Eosinophils # (0.04-0.35) X 10*3/uL Metamyelocytes # (Man) 0.12 H (0) k/uL APTT 21.5 L (22.0-30.0) sec Sodium 146 H (137-145) mmol/L Potassium 2.6 L* (3.5-5.1) mmol/L Chloride 111 H (98-107) mmol/L Carbon Dioxide (20.0-27.5) mmol/L BUN 51 H (7-17) mg/dL Creatinine 1.91 H (0.52-1.04) mg/dL Est GFR (CKD-EPI)NonAf (60.0-200.0) BUN/Creatinine Ratio (12.00-20.00) Ratio Glucose 127 H (74-99) mg/dL Calcium (8.7-10.3) mg/dL Magnesium 3.2 H (1.6-2.3) mg/dL Total Bilirubin (0.30-1.20) mg/dL Total Protein 5.9 L (6.3-8.2) g/dL Albumin 3.1 L (3.5-5.0) g/dL Albumin/Globulin Ratio (1.60-3.17) g/dL Urine Appearance (Clear) Urine Protein (Negative) Urine Bilirubin (Negative) Ur Squamous Epith Cells (0-4) /hpf Urine Bacteria (None) /hpf Hyaline Casts (0-2) /lpf Urine Mucus (None) /hpf Urine Yeast (Budding) (None) /hpf Coronavirus (PCR) (Not Detectd) 06/19/21 06/19/21 06/19/21 Range/Units 12:03 13:50 22:15 MCV (80.0-97.0) fL MCHC (31.0-37.0) g/dL RDW (11.5-15.5) % Eosinophils # (0.04-0.35) X 10*3/uL Metamyelocytes # (Man) (0) k/uL APTT (22.0-30.0) sec Sodium (137-145) mmol/L Potassium 2.6 L* (3.5-5.1) mmol/L Chloride (98-107) mmol/L Carbon Dioxide (20.0-27.5) mmol/L BUN (7-17) mg/dL Creatinine (0.52-1.04) mg/dL Est GFR (CKD-EPI)NonAf (60.0-200.0) BUN/Creatinine Ratio (12.00-20.00) Ratio Glucose (74-99) mg/dL Calcium (8.7-10.3) mg/dL Magnesium (1.6-2.3) mg/dL Total Bilirubin (0.30-1.20) mg/dL Total Protein (6.3-8.2) g/dL Albumin (3.5-5.0) g/dL Albumin/Globulin Ratio (1.60-3.17) g/dL Urine Appearance Cloudy H (Clear) Urine Protein Trace H (Negative) Urine Bilirubin 2+ H (Negative) Ur Squamous Epith Cells 7 H (0-4) /hpf Urine Bacteria Rare H (None) /hpf Hyaline Casts 8 H (0-2) /lpf Urine Mucus Rare H (None) /hpf Urine Yeast (Budding) Moderate H (None) /hpf Coronavirus (PCR) Detected A (Not Detectd) 06/20/21 06/20/21 Range/Units 07:43 07:43 MCV 97.5 H (80.0-97.0) fL MCHC 28.3 L (31.0-37.0) g/dL RDW 19.3 H (11.5-15.5) % Eosinophils # 0.01 L (0.04-0.35) X 10*3/uL Metamyelocytes # (Man) (0) k/uL APTT (22.0-30.0) sec Sodium 151 H (137-145) mmol/L Potassium 3.2 L (3.5-5.1) mmol/L Chloride 121 H (98-107) mmol/L Carbon Dioxide 15.4 L (20.0-27.5) mmol/L BUN 33.5 H (7-17) mg/dL Creatinine (0.52-1.04) mg/dL Est GFR (CKD-EPI)NonAf 53.2 L (60.0-200.0) BUN/Creatinine Ratio 33.50 H (12.00-20.00) Ratio Glucose (74-99) mg/dL Calcium 8.4 L (8.7-10.3) mg/dL Magnesium (1.6-2.3) mg/dL Total Bilirubin <0.20 L (0.30-1.20) mg/dL Total Protein 4.8 L (6.3-8.2) g/dL Albumin 2.8 L (3.5-5.0) g/dL Albumin/Globulin Ratio 1.40 L (1.60-3.17) g/dL Urine Appearance (Clear) Urine Protein (Negative) Urine Bilirubin (Negative) Ur Squamous Epith Cells (0-4) /hpf Urine Bacteria (None) /hpf Hyaline Casts (0-2) /lpf Urine Mucus (None) /hpf Urine Yeast (Budding) (None) /hpf Coronavirus (PCR) (Not Detectd)
[2021-06-20 13:27] VITALS: BMI 18.8
[2021-06-21] MEDS: SODIUM CHLORIDE 0.9% 1,000 ML IV SCH ×2 (03:35→22:47)
[2021-06-21] MEDS: DEXAMETHASONE SOD PHOSPHATE 10 MG/ML 1 ML VIAL IVP SCH (08:19)
[2021-06-21] MEDS: PANTOPRAZOLE 40 MG TABLET PO SCH (08:19)
[2021-06-21] MEDS: ASPIRIN 81 MG PO SCH (08:19)
[2021-06-21] MEDS: BALSALAZIDE DISODIUM 750 MG CAPSULE PO SCH ×4 (08:19→19:56)
[2021-06-21] MEDS: CLOPIDOGREL 75 MG TAB PO SCH (08:19)
[2021-06-21] MEDS: carvediloL 3.125 MG TAB PO SCH ×2 (08:19→17:11)
[2021-06-21] MEDS: AZITHROMYCIN 500 MG in SODIUM CHLORIDE 0.9% 250 ML IVPB SCH (08:51)
[2021-06-21] MEDS ORDERED: ENOXAPARIN 30 MG/0.3 ML SYRINGE SQ SCH (09:00)
--- NOTE | 2021-06-21 09:11 | P.PN ---
Subjective Progress Note Date: 06/21/21 Principal diagnosis: 80 years old female with multiple medical problems including meningioma carotid artery disease suspected dementia admitted to the hospital for not feeling well and decrease by mouth intake and being more lethargic and confused in the last few days the patient has been recently diagnosed with COVID-19 infection around 5 days ago Patient also has been coughing Review of systems unable to get due to current condition of the patient Constitutional: Still confused but more awake today Eyes: Anicteric sclerae, moist conjunctiva, no lid-lag PERRLA ENMT: NC/AT Oropharynx clear, no erythema, exudates Neck: Supple, FROM, no masses, or JVD No carotid bruits No thyromegaly Lungs: Clear to auscultation Clear to percussion Normal respiratory effort, no accessory muscle use Cardiovascular: Heart regular in rate and rhythm, No murmurs, gallops, or rubs No peripheral edema Abdominal: Soft Nontender, no guarding, rebound or rigidity Abdomen moving with respiration Normoactive bowel sounds No hepatomegaly, No splenomegaly No palpable mass No abdominal wall hernia noted Skin: Normal temperature, tone, texture, turgor No induration No subcutaneous nodules No rash, lesions No ulcers Extremities: No digital cyanosis No clubbing Pedal pulses intact and symmetrical Radial pulses intact and symmetrical Normal gait and station No calf tenderness Psychiatric:Alert and oriented to person, place and time Appropriate affect Intact judgement Neuro: Generalized weakness Acute renal failure likely due to dehydration Overall slowly improving continue supportive treatment Lethargy suspected metabolic encephalopathy pneumonia cannot be ruled out due to COVID-19 infection. The patient Nelda on IV antibiotics Dementia cannot be ruled out Generalized weakness COVID-19 infection Meningioma with history of surgery' Multiple medical problems Overall slowly improving continue to be confused Patient needs to stay in the hospital for at least another day or 2 continue treatment for COVID-19 pneumonia Rehab early next week Objective - Vital Signs Vital signs: Vital Signs Temp 98.2 F 06/21/21 05:26 Pulse 74 06/21/21 05:26 Resp 15 06/21/21 05:26 BP 163/67 06/21/21 05:26 Pulse Ox 95 06/21/21 05:26 Intake & Output 06/20/21 06/21/21 06/21/21 18:59 06:59 18:59 Weight 49.895 kg Other: Voiding Method Diaper Diaper Incontinent Incontinent # Voids 2 1 # Bowel Movements 2 - Labs CBC & Chem 7: 06/20/21 07:43 06/20/21 07:43 Labs: Abnormal Lab Results - Last 24 Hours (Table) 06/20/21 06/20/21 Range/Units 07:43 07:43 MCV 97.5 H (80.0-97.0) fL MCHC 28.3 L (32.0-37.0) g/dL RDW 19.3 H (11.5-14.5) % Eosinophils # 0.01 L (0.04-0.35) X 10*3/uL Sodium 151 H (135-145) mmol/L Potassium 3.2 L (3.5-5.5) mmol/L Chloride 121 H (96-109) mmol/L Carbon Dioxide 15.4 L (20.0-27.5) mmol/L BUN 33.5 H (9.0-27.0) mg/dL Est GFR (CKD-EPI)NonAf 53.2 L (60.0-200.0) BUN/Creatinine Ratio 33.50 H (12.00-20.00) Ratio Calcium 8.4 L (8.7-10.3) mg/dL Total Bilirubin <0.20 L (0.30-1.20) mg/dL Total Protein 4.8 L (6.2-8.2) g/dL Albumin 2.8 L (3.8-4.9) g/dL Albumin/Globulin Ratio 1.40 L (1.60-3.17) g/dL
[2021-06-21 12:25] LABS: ALT 13 U/L (4-34); AST 24 U/L (14-36); African American GFR (CKD) >90 (>60 ml/min/1.73 sqM); Albumin 2.5 g/dL (3.5-5.0); Alkaline Phosphatase 75 U/L (38-126); Anion Gap 12 mmol/L; Blood Urea Nitrogen 16 mg/dL (7-17); Calcium 9.1 mg/dL (8.4-10.2); Carbon Dioxide 17 mmol/L (22-30); Chloride 126 mmol/L (98-107); Globulin 2.6 g/dL; Glucose 75 mg/dL (74-99); Non-African American GFR(CKD) 86 (>60 ml/min/1.73 sqM); Sodium 155 mmol/L (137-145); Total Bilirubin 0.5 mg/dL (0.2-1.3); Total Protein 5.1 g/dL (6.3-8.2)
[2021-06-21 12:36] LABS: Potassium 2.6 mmol/L (3.5-5.1)
[2021-06-21 12:46] LABS: Anisocytosis Slight; HCT 44.9 % (34.0-46.0); HGB 13.8 gm/dL (11.4-16.0); Hypochromasia Marked; MCH 28.3 pg (25.0-35.0); MCHC 30.7 g/dL (31.0-37.0); MCV 92.2 fL (80.0-100.0); Mean Platelet Volume 10.5; Platelet Count 296 k/uL (150-450); RBC 4.87 m/uL (3.80-5.40); RDW 16.8 % (11.5-15.5); WBC 8.3 k/uL (3.8-10.6)
[2021-06-21 12:55] LABS: Band Neutrophils % 3 %; Monocytes # (M) 0.25 k/uL (0-1.0); Neutrophils % (M) 82 %; Nucleated Red Blood Cells 0 /100 WBC (0-0); Total Cells Counted 100
[2021-06-21] MEDS ORDERED: Potassium Replacement Protocol 1 EACH MISC MISCELLANE PRN (13:09)
[2021-06-21] MEDS: LOPERAMIDE 2 MG CAP PO PRN ×2 (13:20→19:56)
[2021-06-21] MEDS: POTASSIUM CHLORIDE ER 20 MEQ TAB.ER PO SCH ×3 (13:21→17:12)
[2021-06-21] MEDS: HYDROcodone/APAP 10-325MG 1 EACH TAB PO PRN (19:56)
[2021-06-21] MEDS: ALPRAZolam 0.5 MG TAB PO PRN (22:08)
[2021-06-22] MEDS: SODIUM CHLORIDE 0.9% 1,000 ML IV SCH (04:15)
[2021-06-22 07:02] LABS: ALT 12 U/L (4-34); AST 21 U/L (14-36); African American GFR (CKD) >90 (>60 ml/min/1.73 sqM); Albumin 2.2 g/dL (3.5-5.0); Albumin/Globulin Ratio 0.9; Alkaline Phosphatase 66 U/L (38-126); Anion Gap 8 mmol/L; Blood Urea Nitrogen 18 mg/dL (7-17); Carbon Dioxide 18 mmol/L (22-30); Chloride 127 mmol/L (98-107); Globulin 2.4 g/dL; Glucose 74 mg/dL (74-99); Non-African American GFR(CKD) 83 (>60 ml/min/1.73 sqM); Potassium 2.9 mmol/L (3.5-5.1); Sodium 153 mmol/L (137-145); Total Bilirubin 0.5 mg/dL (0.2-1.3); Total Protein 4.6 g/dL (6.3-8.2)
[2021-06-22 07:20] LABS: Anisocytosis Slight; Basophils % (A) 0 %; Eosinophils % (A) 1 %; HCT 42.2 % (34.0-46.0); HGB 12.7 gm/dL (11.4-16.0); Hypochromasia Marked; Lymphocytes # (A) 0.9 k/uL (1.0-4.8); Lymphocytes % (A) 12 %; MCH 27.9 pg (25.0-35.0); MCHC 30.1 g/dL (31.0-37.0); MCV 92.6 fL (80.0-100.0); Monocytes # (A) 0.3 k/uL (0-1.0); Monocytes % (A) 4 %; Neutrophils # (A) 6.3 k/uL (1.3-7.7); Neutrophils % (A) 83 %; Platelet Count 315 k/uL (150-450); RBC 4.56 m/uL (3.80-5.40); RDW 17.3 % (11.5-15.5); WBC 7.6 k/uL (3.8-10.6)
[2021-06-22] MEDS: DEXAMETHASONE SOD PHOSPHATE 10 MG/ML 1 ML VIAL IVP SCH (07:30)
[2021-06-22] MEDS: ENOXAPARIN 40 MG/0.4 ML SYRINGE SQ SCH (07:32)
[2021-06-22] MEDS: AZITHROMYCIN 500 MG in SODIUM CHLORIDE 0.9% 250 ML IVPB SCH (07:33)
[2021-06-22] MEDS: carvediloL 3.125 MG TAB PO SCH ×2 (07:33→16:59)
[2021-06-22] MEDS: BALSALAZIDE DISODIUM 750 MG CAPSULE PO SCH ×3 (07:33→20:58)
[2021-06-22] MEDS: PANTOPRAZOLE 40 MG TABLET PO SCH (07:33)
[2021-06-22] MEDS: ASPIRIN 81 MG PO SCH (07:33)
[2021-06-22] MEDS: CLOPIDOGREL 75 MG TAB PO SCH (07:33)
[2021-06-22] MEDS: POTASSIUM CHLORIDE ER 20 MEQ TAB.ER PO SCH ×3 (07:34→10:43)
[2021-06-22] MEDS: LOPERAMIDE 2 MG CAP PO PRN (07:36)
[2021-06-22] MEDS: HYDROcodone/APAP 10-325MG 1 EACH TAB PO PRN (07:56)
[2021-06-22] MEDS: DEXTROSE 5%-0.45% NACL 1,000 ML IV SCH (09:24)
--- NOTE | 2021-06-22 12:14 | P.PN ---
Subjective Progress Note Date: 06/22/21 Pt appears to be confused, but has no complaints with me at this time. Very poor historian. Objective - Vital Signs Vital signs: Vital Signs Temp 97.4 F L 06/22/21 08:32 Pulse 63 06/22/21 08:32 Resp 18 06/22/21 08:32 BP 125/64 06/22/21 08:32 Pulse Ox 90 L 06/22/21 08:32 Intake & Output 06/21/21 06/22/21 06/22/21 18:59 06:59 18:59 Intake Total 300 Output Total 1 Balance 300 -1 Intake: Intake, IV Titration 300 Amount Azithromycin 500 mg In 250 Sodium Chloride 0.9% 250 ml @ 250 mls/hr IVPB DAILY [facility] Rx#:[id number] cefTRIAXone 1 gm In 50 Sodium Chloride 0.9% 50 ml @ 100 mls/hr IVPB DAILY [facility] Rx#:[id number] Output: Stool 1 Other: Voiding Method Diaper Diaper Diaper Incontinent Incontinent Incontinent External Catheter # Voids 1 # Bowel Movements 1 - Exam Gen: awake, alert HEENT: normocephalic, atraumatic, good hearing acuity, moist mucous membranes Resp: good air exchange, breathing comfortably with no accessory muscle use CVS: good distal perfusion x 4, GI: soft, NTTP, ND : no SPT, no CVAT, blake catheter not present MSK: no pitting edema, no clubbing Neuro: non-focal, moving all extremities Psych: cooperative, euthymic mood - Labs CBC & Chem 7: 06/22/21 06:16 06/22/21 06:16 Labs: Abnormal Lab Results - Last 24 Hours (Table) 06/21/21 06/21/21 06/21/21 Range/Units 11:20 11:20 23:30 MCHC 30.7 L (31.0-37.0) g/dL RDW 16.8 H (11.5-15.5) % Lymphocytes # (1.0-4.8) k/uL Sodium 155 H (137-145) mmol/L Potassium 2.6 L* 3.4 L (3.5-5.1) mmol/L Chloride 126 H (98-107) mmol/L Carbon Dioxide 17 L (22-30) mmol/L BUN (7-17) mg/dL Total Protein 5.1 L (6.3-8.2) g/dL Albumin 2.5 L (3.5-5.0) g/dL 06/22/21 06/22/21 Range/Units 06:16 06:16 MCHC 30.1 L (31.0-37.0) g/dL RDW 17.3 H (11.5-15.5) % Lymphocytes # 0.9 L (1.0-4.8) k/uL Sodium 153 H (137-145) mmol/L Potassium 2.9 L (3.5-5.1) mmol/L Chloride 127 H (98-107) mmol/L Carbon Dioxide 18 L (22-30) mmol/L BUN 18 H (7-17) mg/dL Total Protein 4.6 L (6.3-8.2) g/dL Albumin 2.2 L (3.5-5.0) g/dL Assessment and Plan Assessment: Toxic/metabolic encephalopathy Hypernatremia Hyperchloremia Hypokalemia Non-anion gap metabolic acidosis -Admit to inpatient, telemetry -Discontinue normal saline, start D5/0.45 NS -Total free water deficit of 2.1 L, will try to correct 800 mL of free water deficit in the next 24 hours -BMP every 6 hours -CBC, magnesium daily -Replete potassium per protocol -Delirium precautions, maintain active day night cycles, avoid benzodiazepines and anticholinergics Acute hypoxemic respiratory failure Covid 19 -Oxygen when necessary -Dexamethasone -Vitamin C, D, zinc -Trend inflammatory markers Complicated urinary tract infection Acute kidney injury, resolved -Patient treated with ceftriaxone -Follow up urine culture -GINETTE resolved with IV fluids Meningioma Coronary artery disease COPD without exacerbation Hypertension Hyperlipidemia Seizure disorder -Home medications reviewed and reconciled -Not on any notable medications for seizure disorder, though this is written in her history Patient is a full code DVT prophylaxis with enoxaparin
[2021-06-22 12:41] LABS: African American GFR (CKD) >90 (>60 ml/min/1.73 sqM); Anion Gap 6 mmol/L; Blood Urea Nitrogen 19 mg/dL (7-17); Calcium 8.6 mg/dL (8.4-10.2); Carbon Dioxide 19 mmol/L (22-30); Chloride 125 mmol/L (98-107); Glucose 136 mg/dL (74-99); Non-African American GFR(CKD) 84 (>60 ml/min/1.73 sqM); Sodium 150 mmol/L (137-145)
[2021-06-22 12:44] LABS: Potassium 3.7 mmol/L (3.5-5.1)
--- NOTE | 2021-06-22 13:44 | US ---
EXAMINATION TYPE: US kidneys/renal and bladder DATE OF EXAM: 06/22/2021 COMPARISON: NONE CLINICAL HISTORY: GINETTE on admission, hypernatremia. EXAM MEASUREMENTS: Right Kidney: 8.9 x 4.3 x 4.8 cm Left Kidney: 9.4 x 4.4 x 4.2 cm Right Kidney: No hydronephrosis or masses seen Left Kidney: No hydronephrosis or masses seen Bladder: wnl There is no evidence for hydronephrosis at this point in time. Cortical measured differentiation is m aintained. No nephrolithiasis is seen. No masses are identified. The urinary bladder is anechoic. IMPRESSION: No hydronephrosis. Renal sizes as described.
[2021-06-22 18:48] LABS: African American GFR (CKD) >90 (>60 ml/min/1.73 sqM); Anion Gap 8 mmol/L; Blood Urea Nitrogen 22 mg/dL (7-17); Carbon Dioxide 20 mmol/L (22-30); Chloride 123 mmol/L (98-107); Glucose 200 mg/dL (74-99); Non-African American GFR(CKD) 83 (>60 ml/min/1.73 sqM); Potassium 3.3 mmol/L (3.5-5.1); Sodium 151 mmol/L (137-145)
[2021-06-22] MEDS: CHOLECALCIFEROL 125 MCG (5000 IU) TABLET PO SCH (20:59)
[2021-06-23 01:05] LABS: African American GFR (CKD) >90 (>60 ml/min/1.73 sqM); Anion Gap 7 mmol/L; Blood Urea Nitrogen 23 mg/dL (7-17); Calcium 9.2 mg/dL (8.4-10.2); Carbon Dioxide 18 mmol/L (22-30); Chloride 128 mmol/L (98-107); Non-African American GFR(CKD) 87 (>60 ml/min/1.73 sqM); Sodium 153 mmol/L (137-145)
[2021-06-23 01:23] LABS: Glucose 159 mg/dL (74-99); Potassium 5.6 mmol/L (3.5-5.1)
[2021-06-23] MEDS: DEXTROSE 5%-0.45% NACL 1,000 ML IV SCH ×2 (02:17→19:36)
[2021-06-23 02:47] LABS: Glucose,Whole Blood 124 mg/dL (75-99)
[2021-06-23] MEDS: ACETAMINOPHEN TAB 325 MG TAB PO PRN ×2 (04:44→15:49)
[2021-06-23] MEDS: LOPERAMIDE 2 MG CAP PO PRN (04:44)
[2021-06-23 06:17] LABS: Anisocytosis Slight; Basophils # (A) 0.1 k/uL (0-0.2); Basophils % (A) 1 %; Eosinophils % (A) 0 %; HCT 44.3 % (34.0-46.0); HGB 12.9 gm/dL (11.4-16.0); Hypochromasia Marked; Lymphocytes # (A) 0.9 k/uL (1.0-4.8); Lymphocytes % (A) 8 %; MCH 28.3 pg (25.0-35.0); MCHC 29.2 g/dL (31.0-37.0); MCV 97.1 fL (80.0-100.0); Macrocytosis Slight; Mean Platelet Volume 9.8; Monocytes # (A) 0.4 k/uL (0-1.0); Monocytes % (A) 4 %; Neutrophils # (A) 9.1 k/uL (1.3-7.7); Neutrophils % (A) 86 %; Platelet Count 301 k/uL (150-450); RBC 4.57 m/uL (3.80-5.40); RDW 17.3 % (11.5-15.5); WBC 10.6 k/uL (3.8-10.6)
[2021-06-23 06:29] LABS: African American GFR (CKD) >90 (>60 ml/min/1.73 sqM); Anion Gap 9 mmol/L; Blood Urea Nitrogen 21 mg/dL (7-17); Calcium 8.9 mg/dL (8.4-10.2); Carbon Dioxide 16 mmol/L (22-30); Chloride 123 mmol/L (98-107); Glucose 101 mg/dL (74-99); Non-African American GFR(CKD) 89 (>60 ml/min/1.73 sqM); Sodium 148 mmol/L (137-145)
[2021-06-23 06:36] LABS: Potassium 4.4 mmol/L (3.5-5.1)
[2021-06-23] MEDS ORDERED: IPRATROPIUM 0.5 MG/2.5 ML NEBU INHALATION SCH (08:00)
[2021-06-23] MEDS: DEXAMETHASONE SOD PHOSPHATE 10 MG/ML 1 ML VIAL IVP SCH (08:19)
[2021-06-23] MEDS: ENOXAPARIN 40 MG/0.4 ML SYRINGE SQ SCH (08:19)
[2021-06-23] MEDS: PRAVASTATIN SODIUM 20 MG TAB PO SCH (08:19)
[2021-06-23] MEDS: carvediloL 3.125 MG TAB PO SCH ×2 (08:19→17:27)
[2021-06-23] MEDS: CLOPIDOGREL 75 MG TAB PO SCH (08:19)
[2021-06-23] MEDS: lisinopriL 20 MG TAB PO SCH (08:19)
[2021-06-23] MEDS: BALSALAZIDE DISODIUM 750 MG CAPSULE PO SCH ×3 (08:20→19:35)
[2021-06-23] MEDS: ASPIRIN 81 MG PO SCH (08:20)
[2021-06-23] MEDS: PANTOPRAZOLE 40 MG TABLET PO SCH (08:20)
[2021-06-23] MEDS: ISOSORBIDE MONONITRATE ER 30 MG TAB.ER.24H PO SCH (08:20)
[2021-06-23] MEDS: amLODIPine 10 MG TAB PO SCH (08:20)
[2021-06-23] MEDS: AZITHROMYCIN 500 MG in SODIUM CHLORIDE 0.9% 250 ML IVPB SCH (09:28)
[2021-06-23] MEDS: SYMBICORT 80-4.5 MCG INHALER INHALATION SCH ×2 (09:35→19:28)
[2021-06-23] MEDS: TIOTROPIUM 2.5 MCG INHALER INHALATION SCH (09:35)
--- NOTE | 2021-06-23 10:37 | P.PN ---
Subjective Progress Note Date: 06/23/21 Pt is a poor historian and does not participate with interview today. Na is trending down at appropriate rate. Encourage PO intake today. Objective - Vital Signs Vital signs: Vital Signs Temp 97.6 F 06/23/21 09:12 Pulse 66 06/23/21 09:12 Resp 17 06/23/21 09:12 BP 145/57 06/23/21 09:12 Pulse Ox 90 L 06/23/21 09:12 Intake & Output 06/22/21 06/23/21 06/23/21 18:59 06:59 18:59 Intake Total 660 500 Output Total 700 Balance 660 -200 Intake: Intake, IV Titration 660 300 Amount Azithromycin 500 mg In 250 Sodium Chloride 0.9% 250 ml @ 250 mls/hr IVPB DAILY [facility] Rx#:[id number] Dextrose 5%-0.45% NaCl 1, 360 300 000 ml @ 60 mls/hr IV . [id number] [facility] Rx#:[id number] cefTRIAXone 1 gm In 50 Sodium Chloride 0.9% 50 ml @ 100 mls/hr IVPB DAILY [facility] Rx#:[id number] Oral 200 Output: Urine 700 Straight 700 Other: Voiding Method Diaper Diaper Incontinent Incontinent External Catheter External Catheter # Bowel Movements 2 - Exam Gen: awake, alert HEENT: normocephalic, atraumatic, good hearing acuity, moist mucous membranes Resp: good air exchange, breathing comfortably with no accessory muscle use CVS: good distal perfusion x 4, GI: soft, NTTP, ND : no SPT, no CVAT, blake catheter not present MSK: no pitting edema, no clubbing Neuro: non-focal, moving all extremities Psych: cooperative, euthymic mood - Labs CBC & Chem 7: 06/23/21 05:35 06/23/21 05:35 Labs: Abnormal Lab Results - Last 24 Hours (Table) 06/22/21 06/22/21 06/23/21 Range/Units 12:07 18:00 00:22 MCHC (31.0-37.0) g/dL RDW (11.5-15.5) % Neutrophils # (1.3-7.7) k/uL Lymphocytes # (1.0-4.8) k/uL Sodium 150 H 151 H 153 H (137-145) mmol/L Potassium 3.3 L 5.6 H (3.5-5.1) mmol/L Chloride 125 H 123 H 128 H (98-107) mmol/L Carbon Dioxide 19 L 20 L 18 L (22-30) mmol/L BUN 19 H 22 H 23 H (7-17) mg/dL Glucose 136 H 200 H 159 H (74-99) mg/dL POC Glucose (mg/dL) (75-99) mg/dL 06/23/21 06/23/21 06/23/21 Range/Units 02:44 05:35 05:35 MCHC 29.2 L (31.0-37.0) g/dL RDW 17.3 H (11.5-15.5) % Neutrophils # 9.1 H (1.3-7.7) k/uL Lymphocytes # 0.9 L (1.0-4.8) k/uL Sodium 148 H (137-145) mmol/L Potassium (3.5-5.1) mmol/L Chloride 123 H (98-107) mmol/L Carbon Dioxide 16 L (22-30) mmol/L BUN 21 H (7-17) mg/dL Glucose 101 H (74-99) mg/dL POC Glucose (mg/dL) 124 H (75-99) mg/dL Assessment and Plan Assessment: Toxic/metabolic encephalopathy Hypernatremia Hyperchloremia Hypokalemia Non-anion gap metabolic acidosis -Admit to inpatient, telemetry -Discontinue normal saline, continue D5/0.45 NS -BMP every 6 hours -CBC, magnesium daily -Replete potassium per protocol -Delirium precautions, maintain active day night cycles, avoid benzodiazepines and anticholinergics Acute hypoxemic respiratory failure Covid 19 -Oxygen when necessary -Dexamethasone -Vitamin C, D, zinc -Trend inflammatory markers Complicated urinary tract infection Acute kidney injury, resolved -Patient treated with ceftriaxone -Follow up urine culture -GINETTE resolved with IV fluids Meningioma Coronary artery disease COPD without exacerbation Hypertension Hyperlipidemia Seizure disorder -Home medications reviewed and reconciled -Not on any notable medications for seizure disorder, though this is written in her history Patient is a full code DVT prophylaxis with enoxaparin
[2021-06-23 12:42] LABS: African American GFR (CKD) >90 (>60 ml/min/1.73 sqM); Anion Gap 10 mmol/L; Blood Urea Nitrogen 19 mg/dL (7-17); Carbon Dioxide 15 mmol/L (22-30); Chloride 125 mmol/L (98-107); Glucose 106 mg/dL (74-99); Non-African American GFR(CKD) 88 (>60 ml/min/1.73 sqM); Sodium 150 mmol/L (137-145)
[2021-06-23 18:00] LABS: African American GFR (CKD) >90 (>60 ml/min/1.73 sqM); Anion Gap 7 mmol/L; Blood Urea Nitrogen 18 mg/dL (7-17); Calcium 8.9 mg/dL (8.4-10.2); Carbon Dioxide 19 mmol/L (22-30); Chloride 123 mmol/L (98-107); Glucose 189 mg/dL (74-99); Non-African American GFR(CKD) >90 (>60 ml/min/1.73 sqM); Sodium 149 mmol/L (137-145)
[2021-06-23 18:06] LABS: Potassium 3.7 mmol/L (3.5-5.1)
[2021-06-23] MEDS: ALPRAZolam 0.5 MG TAB PO PRN (19:35)
[2021-06-23] MEDS: CHOLECALCIFEROL 125 MCG (5000 IU) TABLET PO SCH (19:35)
[2021-06-23] MEDS: HYDROcodone/APAP 10-325MG 1 EACH TAB PO PRN (22:59)
[2021-06-24 01:09] LABS: African American GFR (CKD) >90 (>60 ml/min/1.73 sqM); Anion Gap 9 mmol/L; Blood Urea Nitrogen 18 mg/dL (7-17); Calcium 10.8 mg/dL (8.4-10.2); Carbon Dioxide 16 mmol/L (22-30); Chloride 130 mmol/L (98-107); Glucose 207 mg/dL (74-99); Non-African American GFR(CKD) >90 (>60 ml/min/1.73 sqM); Sodium 155 mmol/L (137-145)
[2021-06-24] MEDS: ASPIRIN 81 MG PO SCH (08:10)
[2021-06-24] MEDS: lisinopriL 20 MG TAB PO SCH (08:10)
[2021-06-24] MEDS: ENOXAPARIN 40 MG/0.4 ML SYRINGE SQ SCH (08:10)
[2021-06-24] MEDS: BALSALAZIDE DISODIUM 750 MG CAPSULE PO SCH ×3 (08:10→21:32)
[2021-06-24] MEDS: CLOPIDOGREL 75 MG TAB PO SCH (08:11)
[2021-06-24] MEDS: PANTOPRAZOLE 40 MG TABLET PO SCH (08:11)
[2021-06-24] MEDS: amLODIPine 10 MG TAB PO SCH (08:11)
[2021-06-24] MEDS: PRAVASTATIN SODIUM 20 MG TAB PO SCH (08:11)
[2021-06-24] MEDS: carvediloL 3.125 MG TAB PO SCH ×2 (08:11→16:41)
[2021-06-24] MEDS: DEXAMETHASONE SOD PHOSPHATE 10 MG/ML 1 ML VIAL IVP SCH (08:11)
[2021-06-24] MEDS: ISOSORBIDE MONONITRATE ER 30 MG TAB.ER.24H PO SCH (08:11)
[2021-06-24] MEDS: TIOTROPIUM 2.5 MCG INHALER INHALATION SCH (09:17)
[2021-06-24] MEDS: SYMBICORT 80-4.5 MCG INHALER INHALATION SCH ×2 (09:17→20:42)
[2021-06-24 09:38] LABS: Basophils # (A) 0.03 X 10*3/uL (0.00-0.10); Basophils % (A) 0.3 %; Eosinophils # (A) 0 X 10*3/uL (0.04-0.35); Eosinophils % (A) 0 %; HCT 38.9 % (37.2-46.3); HGB 11.7 g/dL (12.0-15.0); Lymphocytes # (A) 1.08 X 10*3/uL (0.90-5.00); Lymphocytes % (A) 10.3 %; MCH 27.9 pg (27.0-32.0); MCHC 30.1 g/dL (32.0-37.0); MCV 92.6 fL (80.0-97.0); Mean Platelet Volume 12.4 fL (9.5-12.2); Monocytes # (A) 0.64 X 10*3/uL (0.20-1.00); Monocytes % (A) 6.1 %; Neutrophils # (A) 8.45 X 10*3/uL (1.80-7.70); Neutrophils % (A) 80.5 %; Platelet Count 337 X 10*3/uL (140-440); RDW 18.9 % (11.5-14.5); WBC 10.49 X 10*3/uL (4.50-10.00)
[2021-06-24 10:09] LABS: African American GFR (CKD) 105.9 (60.0-200.0); Anion Gap 14.8 mmol/L (10.00-18.00); Calcium 8.8 mg/dL (8.7-10.3); Carbon Dioxide 20.2 mmol/L (20.0-27.5); Magnesium 1.8 mg/dL (1.5-2.4); Non-African American GFR(CKD) 91.4 (60.0-200.0); Potassium 3.3 mmol/L (3.5-5.5)
--- NOTE | 2021-06-24 10:11 | P.PN ---
Subjective Progress Note Date: 06/24/21 Pts mentation is mildly improved today. She does not report pain, and understands her need to drink more water because of high sodium level. She is seen picking at her meal on the tray in front of her. Objective - Vital Signs Vital signs: Vital Signs Temp 97.5 F L 06/24/21 10:00 Pulse 56 L 06/24/21 10:00 Resp 18 06/24/21 10:00 BP 140/75 06/24/21 10:00 Pulse Ox 97 06/24/21 10:00 Intake & Output 06/23/21 06/24/21 06/24/21 18:59 06:59 18:59 Intake Total 300 Balance 300 Weight 49.895 kg Intake: Intake, IV Titration 120 Amount Dextrose 5%-0.45% NaCl 1, 120 000 ml @ 60 mls/hr IV . [id number] [facility] Rx#:[id number] Oral 180 Other: Voiding Method Indwelling Catheter # Voids 700 # Bowel Movements 2 1 - Exam Gen: awake, alert HEENT: normocephalic, atraumatic, good hearing acuity, moist mucous membranes Resp: good air exchange, breathing comfortably with no accessory muscle use CVS: good distal perfusion x 4, GI: soft, NTTP, ND : no SPT, no CVAT, blake catheter is present MSK: no pitting edema, no clubbing Neuro: non-focal, moving all extremities Psych: cooperative, euthymic mood - Labs CBC & Chem 7: 06/24/21 05:24 06/24/21 00:35 Labs: Abnormal Lab Results - Last 24 Hours (Table) 06/23/21 06/23/21 06/24/21 Range/Units 11:33 17:27 00:35 WBC (4.50-10.00) X 10*3/uL Hgb (12.0-15.0) g/dL MCHC (32.0-37.0) g/dL RDW (11.5-14.5) % MPV (9.5-12.2) fL Absolute Nucleated RBC (0.00-0.00) X 10*3/uL Immature Gran # (0.00-0.04) X 10*3/uL Neutrophils # (1.80-7.70) X 10*3/uL Eosinophils # (0.04-0.35) X 10*3/uL NRBC/100 WBC Diff (0.0-0.0) /100 WBCS Sodium 150 H 149 H 155 H (137-145) mmol/L Chloride 125 H 123 H 130 H (98-107) mmol/L Carbon Dioxide 15 L 19 L 16 L (22-30) mmol/L BUN 19 H 18 H 18 H (7-17) mg/dL Creatinine 0.48 L 0.47 L (0.52-1.04) mg/dL Glucose 106 H 189 H 207 H (74-99) mg/dL Calcium 10.8 H (8.4-10.2) mg/dL 06/24/21 Range/Units 05:24 WBC 10.49 H (4.50-10.00) X 10*3/uL Hgb 11.7 L (12.0-15.0) g/dL MCHC 30.1 L (32.0-37.0) g/dL RDW 18.9 H (11.5-14.5) % MPV 12.4 H (9.5-12.2) fL Absolute Nucleated RBC 0.06 H (0.00-0.00) X 10*3/uL Immature Gran # 0.29 H (0.00-0.04) X 10*3/uL Neutrophils # 8.45 H (1.80-7.70) X 10*3/uL Eosinophils # 0 L (0.04-0.35) X 10*3/uL NRBC/100 WBC Diff 0.6 H (0.0-0.0) /100 WBCS Sodium (137-145) mmol/L Chloride (98-107) mmol/L Carbon Dioxide (22-30) mmol/L BUN (7-17) mg/dL Creatinine (0.52-1.04) mg/dL Glucose (74-99) mg/dL Calcium (8.4-10.2) mg/dL Assessment and Plan Assessment: Toxic/metabolic encephalopathy Hypernatremia Hyperchloremia Hypokalemia Non-anion gap metabolic acidosis -Admit to inpatient, telemetry -Discontinue normal saline, continue D5/0.45 NS -BMP every 6 hours -CBC, magnesium daily -Replete potassium per protocol -Delirium precautions, maintain active day night cycles, avoid benzodiazepines and anticholinergics Acute hypoxemic respiratory failure Covid 19 -Oxygen when necessary -Dexamethasone -Vitamin C, D, zinc -Trend inflammatory markers Complicated urinary tract infection Acute kidney injury, resolved -Patient treated with ceftriaxone -Follow up urine culture -GINETTE resolved with IV fluids Meningioma Coronary artery disease COPD without exacerbation Hypertension Hyperlipidemia Seizure disorder -Home medications reviewed and reconciled -Not on any notable medications for seizure disorder, though this is written in her history Patient is a full code DVT prophylaxis with enoxaparin
[2021-06-24] MEDS: AZITHROMYCIN 500 MG in SODIUM CHLORIDE 0.9% 250 ML IVPB SCH (10:29)
[2021-06-24] MEDS: HYDROcodone/APAP 10-325MG 1 EACH TAB PO PRN ×2 (10:34→16:55)
[2021-06-24] MEDS: DEXTROSE 5%-0.45% NACL 1,000 ML IV SCH ×2 (12:32→21:33)
--- NOTE | 2021-06-24 15:47 | P.CNOR ---
History of Present Illness - [facility] Consult date: 06/24/21 Consult reason: fracture (Previous fracture with history of surgery left wrist) History of present illness: Patient is an 80-year-old female who presented to [facility] and was admitted on 06/19/2021 with regards to decrease in appetite and increasing confusion. Patient has been followed by internal medicine since being admitted to the hospital, she has multiple metabolic abnormalities along with recent COVID-19 infection. According to the chart, the patient did have a previous fall back in March 2021, she was diagnosed at that time with Christofer displaced and comminuted left distal radius and ulnar fracture. I did reach out to one of the daughters today via telephone, patient had underwent surgery by an orthopedic hand surgeon in [address] [place] [address] on 05/13/2021. She mentioned that pins were placed by the surgeon and she was placed in a cast. She was actually supposed to follow-up with her hand surgeon last week but with her hospital admission that visit was canceled. Our orthopedic team was consulted today because of questionable cast change due to becoming dirty Patient is resting in her hospital chair. Patient is very confused on exam. She notes some discomfort in the left wrist on exam. She has no other acute orthopedic problems or complaints. Review of Systems Constitutional: Reports as per [facility] Past Medical History Past Medical History: COPD, Hyperlipidemia, Hypertension, Myocardial Infarction ([place]), Seizure Disorder Additional Past Medical History / Comment(s): brain tumor Last Myocardial Infarction Date:: . History of Any Multi-Drug Resistant Organisms: None Reported Past Surgical History: Appendectomy, Bowel Resection, Heart Catheterization With Stent, Hernia Repair, Hysterectomy Additional Past Surgical History / Comment(s): brain surgeryx 2, crhon's, aortic valve replacment Date of Last Stent Placement:: . Past Psychological History: No Psychological Hx Reported Smoking Status: Current every day smoker Past Alcohol Use History: None Reported Past Drug Use History: Unable to Obtain - Past Family History Father Family Medical History: No Reported History Medications and Allergies Home Medications Medication Instructions Recorded Confirmed Type ALPRAZolam [Xanax] 0.5 mg PO HS PRN 04/25/21 06/19/21 History Albuterol Sulfate [Albuterol 2 puff PO RT-Q6H PRN 04/25/21 06/19/21 History Sulfate Hfa] Aspirin 81 mg PO DAILY 04/25/21 06/19/21 History Biotin [Biotin Disolve] 5,000 mcg PO DAILY 04/25/21 06/19/21 History Cholecalciferol [Vitamin D3 (125 125 mcg PO HS 04/25/21 06/19/21 History Mcg = 5000 Iu)] Clopidogrel Bisulfate [Plavix] 75 mg PO DAILY 04/25/21 06/19/21 History Fluticasone/Umeclidin/Vilanter 1 puff INHALATION RT-DAILY 04/25/21 06/19/21 History [Trelegy Ellipta 100-62.5-25] HYDROcodone/APAP 10-325MG [Purcell 1 tab PO Q4HR PRN 04/25/21 06/19/21 History 10-325] Isosorbide Mononitrate ER [Imdur] 30 mg PO DAILY 04/25/21 06/19/21 History Magnesium Gluconate [Magonate] 500 mg PO QID 04/25/21 06/19/21 History Mesalamine [Pentasa] 1,500 mg PO TID 04/25/21 06/19/21 History Nitroglycerin Sl Tabs [Nitrostat] 0.4 mg SUBLINGUAL Q5M PRN 04/25/21 06/19/21 Hi story Pantoprazole Sodium [Protonix] 40 mg PO DAILY 04/25/21 06/19/21 History amLODIPine [Norvasc] 10 mg PO DAILY 04/25/21 06/19/21 History carvediloL [Coreg] 3.125 mg PO BID 04/25/21 06/19/21 History lisinopriL 40 mg PO DAILY 04/25/21 06/19/21 History Pravastatin Sodium [Pravachol] 20 mg PO DAILY 06/19/21 06/19/21 History Allergies Allergy/AdvReac Type Severity Reaction Status Date / Time No Known Allergies Allergy Verified 06/19/21 12:07 Physical Examination Left upper extremity: Sugar tong plaster splint with Christofer bandages fixation in place of the left upper extremity below the elbow Gen. soft tissue swelling is present throughout the dorsum of the hand and fingers Her sensation to light touch is intact throughout the upper extremity both proximal distal to the splint Capillary refill is less than 2 seconds. Gentle range of motion of the elbow and shoulder reproduce no pain Results - Labs Labs: Abnormal Lab Results - Last 24 Hours (Table) 06/23/21 06/24/21 06/24/21 Range/Units 17:27 00:35 05:21 WBC (4.50-10.00) X 10*3/uL Hgb (12.0-15.0) g/dL MCHC (32.0-37.0) g/dL RDW (11.5-14.5) % MPV (9.5-12.2) fL Absolute Nucleated RBC (0.00-0.00) X 10*3/uL Immature Gran # (0.00-0.04) X 10*3/uL Neutrophils # (1.80-7.70) X 10*3/uL Eosinophils # (0.04-0.35) X 10*3/uL NRBC/100 WBC Diff (0.0-0.0) /100 WBCS Sodium 149 H 155 H 154 H (137-145) mmol/L Potassium 3.3 L (3.5-5.5) mmol/L Chloride 123 H 130 H 119 H (98-107) mmol/L Carbon Dioxide 19 L 16 L (22-30) mmol/L BUN 18 H 18 H (7-17) mg/dL Creatinine 0.48 L 0.47 L 0.5 L (0.52-1.04) mg/dL BUN/Creatinine Ratio 28.00 H (12.00-20.00) Ratio Glucose 189 H 207 H (74-99) mg/dL Calcium 10.8 H (8.4-10.2) mg/dL 06/24/21 Range/Units 05:24 WBC 10.49 H (4.50-10.00) X 10*3/uL Hgb 11.7 L (12.0-15.0) g/dL MCHC 30.1 L (32.0-37.0) g/dL RDW 18.9 H (11.5-14.5) % MPV 12.4 H (9.5-12.2) fL Absolute Nucleated RBC 0.06 H (0.00-0.00) X 10*3/uL Immature Gran # 0.29 H (0.00-0.04) X 10*3/uL Neutrophils # 8.45 H (1.80-7.70) X 10*3/uL Eosinophils # 0 L (0.04-0.35) X 10*3/uL NRBC/100 WBC Diff 0.6 H (0.0-0.0) /100 WBCS Sodium (137-145) mmol/L Potassium (3.5-5.5) mmol/L Chloride (98-107) mmol/L Carbon Dioxide (22-30) mmol/L BUN (7-17) mg/dL Creatinine (0.52-1.04) mg/dL BUN/Creatinine Ratio (12.00-20.00) Ratio Glucose (74-99) mg/dL Calcium (8.4-10.2) mg/dL H & H 06/19/21 06/20/21 06/21/21 Range/Units 10:59 07:43 11:20 Hgb 13.5 12.1 13.8 (11.4-16.0) gm/dL Hct 44.5 42.8 44.9 (34.0-46.0) % 06/22/21 06/23/21 06/24/21 Range/Units 06:16 05:35 05:24 Hgb 12.7 12.9 11.7 L (11.4-16.0) gm/dL Hct 42.2 44.3 38.9 (34.0-46.0) % Coagulation 06/19/21 Range/Units 10:59 INR 0.9 (<1.2) Result Diagrams: 06/24/21 05:24 06/24/21 05:21 - Diagnostic results Wrist/Hand x-ray: report reviewed, image reviewed Assessment and Plan Assessment: Previous displaced and comminuted left distal radius/ulna fracture Previous closed reduction with pin placement left distal radius fracture, March 2021 Multiple medical comorbidities Plan: After speaking with the patient's family, she did provide me with the office number of the surgeon who did fix the hand back in March 2021. A message was left with his medical assistance to contact me regarding continuation of care. I would plan to remove the current splint and assess soft tissues, at that time likely fixate the patient once again with some type of bracing, this either be a Velcro removable splint or plaster configuration. We'll plan for 06/25/2021 Continue nonweightbearing left upper extremity, ice and elevate often Other medical specialty recommendations Further recommendations to follow Time with Patient: Less than 30
--- NOTE | 2021-06-24 15:47 | XR ---
EXAMINATION TYPE: XR wrist limited LT DATE OF EXAM: 06/24/2021 COMPARISON: 04/25/2021 HISTORY: Postop TECHNIQUE: 2 view submitted FINDINGS: Overlying casting material obscures bony detail resulting in a limited exam. There is nonun ion displaced fracture of the distal radius with dorsal angulation. There may be some initial scleros is or callus formation. Ulna is nondiagnostic in assessment. Findings suggestive of flow metallic fix ation across the fracture line. IMPRESSION: Persistent displaced fracture distal radius with metallic postsurgical suspected external fixation changes noted. Correlate clinically.
[2021-06-24] MEDS: POTASSIUM CHLORIDE ER 20 MEQ TAB.ER PO SCH ×2 (21:32→22:03)
[2021-06-24] MEDS: CHOLECALCIFEROL 125 MCG (5000 IU) TABLET PO SCH (21:32)
[2021-06-24] MEDS: ALPRAZolam 0.5 MG TAB PO PRN (21:32)
[2021-06-25] MEDS: DEXTROSE 5%-0.45% NACL 1,000 ML IV SCH ×3 (05:52→19:39)
[2021-06-25] MEDS: DEXAMETHASONE SOD PHOSPHATE 10 MG/ML 1 ML VIAL IVP SCH (08:43)
[2021-06-25] MEDS: ENOXAPARIN 40 MG/0.4 ML SYRINGE SQ SCH (08:43)
[2021-06-25] MEDS: ASPIRIN 81 MG PO SCH (08:44)
[2021-06-25] MEDS: lisinopriL 20 MG TAB PO SCH (08:44)
[2021-06-25] MEDS: PANTOPRAZOLE 40 MG TABLET PO SCH (08:44)
[2021-06-25] MEDS: carvediloL 3.125 MG TAB PO SCH ×2 (08:44→17:14)
[2021-06-25] MEDS: PRAVASTATIN SODIUM 20 MG TAB PO SCH (08:44)
[2021-06-25] MEDS: ISOSORBIDE MONONITRATE ER 30 MG TAB.ER.24H PO SCH (08:44)
[2021-06-25] MEDS: CLOPIDOGREL 75 MG TAB PO SCH (08:44)
[2021-06-25] MEDS: amLODIPine 10 MG TAB PO SCH (08:44)
[2021-06-25] MEDS: BALSALAZIDE DISODIUM 750 MG CAPSULE PO SCH ×3 (08:45→19:39)
[2021-06-25] MEDS: SYMBICORT 80-4.5 MCG INHALER INHALATION SCH ×2 (08:53→20:17)
[2021-06-25] MEDS: HYDROcodone/APAP 10-325MG 1 EACH TAB PO PRN (09:01)
[2021-06-25] MEDS: TIOTROPIUM 2.5 MCG INHALER INHALATION SCH (09:02)
[2021-06-25 09:05] LABS: Basophils # (A) 0.02 X 10*3/uL (0.00-0.10); Basophils % (A) 0.3 %; Eosinophils # (A) 0.01 X 10*3/uL (0.04-0.35); Eosinophils % (A) 0.1 %; HGB 11.4 g/dL (12.0-15.0); Lymphocytes % (A) 9.3 %; MCH 28.1 pg (27.0-32.0); MCV 93.6 fL (80.0-97.0); Mean Platelet Volume 11.9 fL (9.5-12.2); Monocytes # (A) 0.44 X 10*3/uL (0.20-1.00); Monocytes % (A) 5.8 %; Neutrophils # (A) 6.17 X 10*3/uL (1.80-7.70); Neutrophils % (A) 81.6 %; Platelet Count 303 X 10*3/uL (140-440); RBC 4.06 X 10*6/uL (4.10-5.20); RDW 18.6 % (11.5-14.5); WBC 7.56 X 10*3/uL (4.50-10.00)
[2021-06-25 09:20] LABS: African American GFR (CKD) 114.3 (60.0-200.0); Anion Gap 13.3 mmol/L (10.00-18.00); BUN/Creat Ratio 24.26 Ratio (12.00-20.00); Blood Urea Nitrogen 9.6 mg/dL (9.0-27.0); Calcium 8.3 mg/dL (8.7-10.3); Carbon Dioxide 21.8 mmol/L (20.0-27.5); Magnesium 1.6 mg/dL (1.5-2.4); Non-African American GFR(CKD) 98.6 (60.0-200.0); Potassium 3.2 mmol/L (3.5-5.5)
--- NOTE | 2021-06-25 09:59 | P.PN ---
Subjective Progress Note Date: 06/25/21 Mentation is slightly better today, patient is more conversive. Na is still in 150s, despite increased rate of fluids, will increase rate again. Objective - Vital Signs Vital signs: Vital Signs Temp 97.7 F 06/25/21 06:15 Pulse 75 06/25/21 06:15 Resp 18 06/25/21 06:15 BP 161/69 06/25/21 06:15 Pulse Ox 94 L 06/25/21 06:15 Intake & Output 06/24/21 06/25/21 06/25/21 18:59 06:59 18:59 Output Total 300 475 Balance -300 -475 Output: Urine 300 475 Other: Voiding Method Indwelling Catheter # Bowel Movements 0 - Exam Gen: awake, alert HEENT: normocephalic, atraumatic, good hearing acuity, moist mucous membranes Resp: good air exchange, breathing comfortably with no accessory muscle use CVS: good distal perfusion x 4, GI: soft, NTTP, ND : no SPT, no CVAT, blake catheter is present MSK: no pitting edema, no clubbing Neuro: non-focal, moving all extremities Psych: cooperative, euthymic mood - Labs CBC & Chem 7: 06/25/21 05:16 06/25/21 05:16 Labs: Abnormal Lab Results - Last 24 Hours (Table) 06/24/21 06/25/21 06/25/21 Range/Units 05:21 05:16 05:16 RBC 4.06 L (4.10-5.20) X 10*6/uL Hgb 11.4 L (12.0-15.0) g/dL MCHC 30.0 L (32.0-37.0) g/dL RDW 18.6 H (11.5-14.5) % Absolute Nucleated RBC 0.04 H (0.00-0.00) X 10*3/uL Immature Gran # 0.22 H (0.00-0.04) X 10*3/uL Lymphocytes # 0.70 L (0.90-5.00) X 10*3/uL Eosinophils # 0.01 L (0.04-0.35) X 10*3/uL NRBC/100 WBC Diff 0.5 H (0.0-0.0) /100 WBCS Sodium 154 H 151 H (135-145) mmol/L Potassium 3.3 L 3.2 L (3.5-5.5) mmol/L Chloride 119 H 116 H (96-109) mmol/L Creatinine 0.5 L 0.4 L (0.6-1.5) mg/dL BUN/Creatinine Ratio 28.00 H 24.26 H (12.00-20.00) Ratio Calcium 8.3 L (8.7-10.3) mg/dL Assessment and Plan Assessment: Toxic/metabolic encephalopathy Hypernatremia Hyperchloremia Hypokalemia Non-anion gap metabolic acidosis -Admit to inpatient, telemetry -Discontinue normal saline, continue D5/0.45 NS, rate increased to 150, but if no improvement by tomorrow AM, may have to switch to D5W. -BMP every 6 hours -CBC, magnesium daily -Replete potassium per protocol -Delirium precautions, maintain active day night cycles, avoid benzodiazepines and anticholinergics Acute hypoxemic respiratory failure Covid 19 -Oxygen when necessary -Dexamethasone -Vitamin C, D, zinc -Trend inflammatory markers Complicated urinary tract infection Acute kidney injury, resolved -Patient treated with ceftriaxone -Follow up urine culture -GINETTE resolved with IV fluids Meningioma Coronary artery disease COPD without exacerbation Hypertension Hyperlipidemia Seizure disorder -Home medications reviewed and reconciled -Not on any notable medications for seizure disorder, though this is written in her history Patient is a full code DVT prophylaxis with enoxaparin
--- NOTE | 2021-06-25 10:21 | P.PN ---
Subjective Progress Note Date: 06/25/21 Principal diagnosis: History of left distal radius/ulnar fracture, with closed reduction and pinning Patient was evaluated today at bedside, she is resting comfortably in her hosp ital bed. Patient's status is much improved since yesterday. She was able to answer my questions adequately at bedside today. I did speak with the patient's surgeon yesterday over the phone regarding this patient. He agreed with removal of splint and checking the soft tissues and then reapplying anterior posterior molded splint. Patient states that the risks feeling okay today, she has no other orthopedic complaints. Objective - Vital Signs Vital signs: Vital Signs Temp 97.7 F 06/25/21 06:15 Pulse 75 06/25/21 06:15 Resp 18 06/25/21 06:15 BP 161/69 06/25/21 06:15 Pulse Ox 94 L 06/25/21 06:15 Intake & Output 06/24/21 06/25/21 06/25/21 18:59 06:59 18:59 Output Total 300 475 Balance -300 -475 Output: Urine 300 475 Other: Voiding Method Indwelling Catheter # Bowel Movements 0 - Exam Left upper extremity: The splint was removed from the extremity, all soft tissues are intact. There is some moderate swelling noted on the dorsum of the hand, this seemed to improve after removal and application of new splint Puncture site where the pin was placed is well healing, no erythema, no purulent material or fluctuance appreciated Physical range of motion of the wrist does reproduce some discomfort Patient is able to wiggle all fingers with minimal difficulty, wrist extension and flexion are intact. Range of motion of the elbow and shoulder are intact Sensory exam to light touch is intact throughout the extremity, radial and ulnar pulses are 2+ - Labs CBC & Chem 7: 06/25/21 05:16 06/25/21 05:16 Labs: Abnormal Lab Results - Last 24 Hours (Table) 06/25/21 06/25/21 Range/Units 05:16 05:16 RBC 4.06 L (4.10-5.20) X 10*6/uL Hgb 11.4 L (12.0-15.0) g/dL MCHC 30.0 L (32.0-37.0) g/dL RDW 18.6 H (11.5-14.5) % Absolute Nucleated RBC 0.04 H (0.00-0.00) X 10*3/uL Immature Gran # 0.22 H (0.00-0.04) X 10*3/uL Lymphocytes # 0.70 L (0.90-5.00) X 10*3/uL Eosinophils # 0.01 L (0.04-0.35) X 10*3/uL NRBC/100 WBC Diff 0.5 H (0.0-0.0) /100 WBCS Sodium 151 H (135-145) mmol/L Potassium 3.2 L (3.5-5.5) mmol/L Chloride 116 H (96-109) mmol/L Creatinine 0.4 L (0.6-1.5) mg/dL BUN/Creatinine Ratio 24.26 H (12.00-20.00) Ratio Calcium 8.3 L (8.7-10.3) mg/dL Assessment and Plan Assessment: Previous displaced and comminuted left distal radius/ulna fracture Previous closed reduction with pin placement left distal radius fracture, March 2021 Multiple medical comorbidities Plan: After removal of the splint, I did place a new anterior and posterior plaster splint with plaster. Patient tolerated procedure well. Continue nonweightbearing left upper extremity, ice and elevate often Other medical specialty recommendations Recommend following up with patients orthopedic hand surgeon after discharge from this hospital to discuss further treatment of the left wrist Time with Patient: Less than 30
[2021-06-25 16:26] LABS: African American GFR (CKD) >90 (>60 ml/min/1.73 sqM); Anion Gap 6 mmol/L; Blood Urea Nitrogen 11 mg/dL (7-17); Calcium 8.1 mg/dL (8.4-10.2); Carbon Dioxide 21 mmol/L (22-30); Chloride 116 mmol/L (98-107); Glucose 187 mg/dL (74-99); Non-African American GFR(CKD) >90 (>60 ml/min/1.73 sqM); Sodium 143 mmol/L (137-145)
[2021-06-25] MEDS: POTASSIUM CHLORIDE ER 20 MEQ TAB.ER PO SCH (17:14)
[2021-06-25] MEDS: ALPRAZolam 0.5 MG TAB PO PRN (19:39)
[2021-06-25] MEDS: CHOLECALCIFEROL 125 MCG (5000 IU) TABLET PO SCH (19:39)
[2021-06-26 01:20] LABS: African American GFR (CKD) >90 (>60 ml/min/1.73 sqM); Anion Gap 6 mmol/L; Blood Urea Nitrogen 10 mg/dL (7-17); Calcium 8.5 mg/dL (8.4-10.2); Carbon Dioxide 22 mmol/L (22-30); Chloride 117 mmol/L (98-107); Glucose 138 mg/dL (74-99); Non-African American GFR(CKD) >90 (>60 ml/min/1.73 sqM); Potassium 4.1 mmol/L (3.5-5.1); Sodium 145 mmol/L (137-145)
[2021-06-26 02:03] LABS: African American GFR (CKD) >90 (>60 ml/min/1.73 sqM); Anion Gap 2 mmol/L; Blood Urea Nitrogen 10 mg/dL (7-17); Calcium 8.4 mg/dL (8.4-10.2); Carbon Dioxide 25 mmol/L (22-30); Chloride 117 mmol/L (98-107); Glucose 107 mg/dL (74-99); Non-African American GFR(CKD) >90 (>60 ml/min/1.73 sqM); Potassium 3.5 mmol/L (3.5-5.1); Sodium 144 mmol/L (137-145)
[2021-06-26] MEDS: DEXTROSE 5%-0.45% NACL 1,000 ML IV SCH ×4 (02:48→19:59)
[2021-06-26 06:16] LABS: Anisocytosis Slight; Basophils % (A) 0 %; Eosinophils % (A) 0 %; HCT 38.8 % (34.0-46.0); Hypochromasia Moderate; Lymphocytes # (A) 0.9 k/uL (1.0-4.8); Lymphocytes % (A) 10 %; MCH 28.3 pg (25.0-35.0); MCHC 30.9 g/dL (31.0-37.0); Mean Platelet Volume 10.5; Monocytes # (A) 0.4 k/uL (0-1.0); Monocytes % (A) 4 %; Neutrophils # (A) 7.8 k/uL (1.3-7.7); Neutrophils % (A) 85 %; Platelet Count 198 k/uL (150-450); RBC 4.23 m/uL (3.80-5.40); RDW 17.2 % (11.5-15.5); WBC 9.2 k/uL (3.8-10.6)
[2021-06-26 06:22] LABS: MCV 91.6 fL (80.0-100.0)
[2021-06-26 06:26] LABS: African American GFR (CKD) >90 (>60 ml/min/1.73 sqM); Anion Gap 3 mmol/L; Blood Urea Nitrogen 9 mg/dL (7-17); Calcium 8.2 mg/dL (8.4-10.2); Carbon Dioxide 24 mmol/L (22-30); Chloride 116 mmol/L (98-107); Glucose 108 mg/dL (74-99); Magnesium 1.5 mg/dL (1.6-2.3); Non-African American GFR(CKD) >90 (>60 ml/min/1.73 sqM); Potassium 3.2 mmol/L (3.5-5.1); Sodium 143 mmol/L (137-145)
[2021-06-26] MEDS: SYMBICORT 80-4.5 MCG INHALER INHALATION SCH ×2 (07:37→20:03)
[2021-06-26] MEDS: TIOTROPIUM 2.5 MCG INHALER INHALATION SCH (07:38)
[2021-06-26] MEDS: ASPIRIN 81 MG PO SCH (07:54)
[2021-06-26] MEDS: ENOXAPARIN 40 MG/0.4 ML SYRINGE SQ SCH (07:54)
[2021-06-26] MEDS: PANTOPRAZOLE 40 MG TABLET PO SCH (07:55)
[2021-06-26] MEDS: ISOSORBIDE MONONITRATE ER 30 MG TAB.ER.24H PO SCH (07:55)
[2021-06-26] MEDS: amLODIPine 10 MG TAB PO SCH (07:55)
[2021-06-26] MEDS: PRAVASTATIN SODIUM 20 MG TAB PO SCH (07:55)
[2021-06-26] MEDS: carvediloL 3.125 MG TAB PO SCH ×2 (07:55→16:00)
[2021-06-26] MEDS: lisinopriL 20 MG TAB PO SCH (07:55)
[2021-06-26] MEDS: BALSALAZIDE DISODIUM 750 MG CAPSULE PO SCH ×3 (07:56→19:58)
[2021-06-26] MEDS: CLOPIDOGREL 75 MG TAB PO SCH (07:56)
[2021-06-26] MEDS: DEXAMETHASONE SOD PHOSPHATE 10 MG/ML 1 ML VIAL IVP SCH (08:45)
[2021-06-26] MEDS: MAGNESIUM SULFATE-D5W PMX 1 GM in DEXTROSE/WATER 1 100ML.BAG IVPB SCH ×2 (10:14→12:00)
[2021-06-26] MEDS: POTASSIUM CHLORIDE ER 20 MEQ TAB.ER PO SCH (10:14)
[2021-06-26] MEDS: HYDROcodone/APAP 10-325MG 1 EACH TAB PO PRN ×2 (12:52→20:06)
[2021-06-26 12:53] LABS: African American GFR (CKD) >90 (>60 ml/min/1.73 sqM); Anion Gap 5 mmol/L; Blood Urea Nitrogen 7 mg/dL (7-17); Calcium 8.3 mg/dL (8.4-10.2); Carbon Dioxide 21 mmol/L (22-30); Chloride 115 mmol/L (98-107); Glucose 113 mg/dL (74-99); Non-African American GFR(CKD) >90 (>60 ml/min/1.73 sqM); Sodium 141 mmol/L (137-145)
[2021-06-26 12:56] LABS: Potassium 3.6 mmol/L (3.5-5.1)
--- NOTE | 2021-06-26 16:11 | P.PN ---
Subjective Patient was examined at bedside today continues to be on 4 L saturating above 90%. She does get some shortness of breath and some ambulation. Patient does have a Blake catheter which we will try to remove and monitor for any residual urinary retention. We'll try to obtain collateral information from family member patient is agreeable for us to call her daughter. Objective - Vital Signs Vital signs: Vital Signs Temp 97.8 F 06/26/21 14:00 Pulse 59 L 06/26/21 14:00 Resp 14 06/26/21 14:00 BP 147/70 06/26/21 14:00 Pulse Ox 92 L 06/26/21 15:41 Intake & Output 06/25/21 06/26/21 06/26/21 18:59 06:59 18:59 Intake Total 1200 1400 Output Total 800 450 Balance 1200 -800 950 Weight 49.895 kg Intake: Intake, IV Titration 1200 1400 Amount Dextrose 5%-0.45% NaCl 1, 1200 1200 000 ml @ 150 mls/hr IV . Q6H40M [facility] Rx#:[id number] Magnesium Sulfate-D5w Pmx 200 1 gm In Dextrose/Water 1 100ml.bag @ 100 mls/hr IVPB Q1H [facility] Rx#: [id number] Output: Urine 800 450 Uretheral (Blake) 450 Other: Voiding Method Indwelling Catheter Indwelling Catheter # Voids 1 # Bowel Movements 0 - Exam Gen: awake, alert slightly confused awake alert oriented 2 HEENT: normocephalic, atraumatic, good hearing acuity, moist mucous membranes Resp: good air exchange, breathing comfortably with no accessory muscle use early on 4 L nasal cannula CVS: good distal perfusion x 4, GI: soft, NTTP, ND : no SPT, no CVAT, blake catheter is present MSK: no pitting edema, no clubbing Neuro: non-focal, moving all extremities Psych: cooperative, euthymic mood - Labs CBC & Chem 7: 06/26/21 05:43 06/26/21 12:31 Labs: Abnormal Lab Results - Last 24 Hours (Table) 06/25/21 06/25/21 06/26/21 Range/Units 15:44 22:54 01:02 MCHC (31.0-37.0) g/dL RDW (11.5-15.5) % Neutrophils # (1.3-7.7) k/uL Lymphocytes # (1.0-4.8) k/uL Potassium 3.0 L (3.5-5.1) mmol/L Chloride 116 H 117 H 117 H (98-107) mmol/L Carbon Dioxide 21 L (22-30) mmol/L Creatinine 0.42 L 0.37 L 0.39 L (0.52-1.04) mg/dL Glucose 187 H 138 H 107 H (74-99) mg/dL Calcium 8.1 L (8.4-10.2) mg/dL Magnesium (1.6-2.3) mg/dL 06/26/21 06/26/21 06/26/21 Range/Units 05:43 05:43 12:31 MCHC 30.9 L (31.0-37.0) g/dL RDW 17.2 H (11.5-15.5) % Neutrophils # 7.8 H (1.3-7.7) k/uL Lymphocytes # 0.9 L (1.0-4.8) k/uL Potassium 3.2 L (3.5-5.1) mmol/L Chloride 116 H 115 H (98-107) mmol/L Carbon Dioxide 21 L (22-30) mmol/L Creatinine 0.42 L 0.39 L (0.52-1.04) mg/dL Glucose 108 H 113 H (74-99) mg/dL Calcium 8.2 L 8.3 L (8.4-10.2) mg/dL Magnesium 1.5 L (1.6-2.3) mg/dL Assessment and Plan Plan: Assessment: #1 acute metabolic encephalopathy #2 acute hypoxic respiratory failure secondary to COVID-19 #3 urinary tract infection #4 coronary artery disease #5 seizure disorder? #6 essential hypertension #7 hyperlipidemia #8 Coronary artery disease Plan: -Admit to medicine for close monitoring -Aspiration/fall precaution/HOB 30 -Continue with dexamethasone started on June 20 until June 30 to complete 10 days -Patient completed course of IV Rocephin for 7 days -Replete electrolytes when necessary -Breathing treatments as needed -PT/OT -DVT prophylaxis Lovenox -Remove Blake catheter and monitor for any urinary retention as discussed with RN today.
[2021-06-26 19:16] LABS: African American GFR (CKD) >90 (>60 ml/min/1.73 sqM); Anion Gap 6 mmol/L; Blood Urea Nitrogen 8 mg/dL (7-17); Calcium 7.9 mg/dL (8.4-10.2); Carbon Dioxide 17 mmol/L (22-30); Chloride 114 mmol/L (98-107); Glucose 139 mg/dL (74-99); Non-African American GFR(CKD) >90 (>60 ml/min/1.73 sqM); Sodium 137 mmol/L (137-145)
[2021-06-26 19:17] LABS: Potassium 4.3 mmol/L (3.5-5.1)
[2021-06-26] MEDS: CHOLECALCIFEROL 125 MCG (5000 IU) TABLET PO SCH (19:58)
[2021-06-27] MEDS: DEXTROSE 5%-0.45% NACL 1,000 ML IV SCH ×3 (06:53→20:46)
[2021-06-27] MEDS: DEXAMETHASONE SOD PHOSPHATE 10 MG/ML 1 ML VIAL IVP SCH (07:41)
[2021-06-27] MEDS: PRAVASTATIN SODIUM 20 MG TAB PO SCH (08:24)
[2021-06-27] MEDS: ISOSORBIDE MONONITRATE ER 30 MG TAB.ER.24H PO SCH (08:24)
[2021-06-27] MEDS: BALSALAZIDE DISODIUM 750 MG CAPSULE PO SCH ×3 (08:24→20:46)
[2021-06-27] MEDS: lisinopriL 20 MG TAB PO SCH (08:24)
[2021-06-27] MEDS: amLODIPine 10 MG TAB PO SCH (08:24)
[2021-06-27] MEDS: ENOXAPARIN 40 MG/0.4 ML SYRINGE SQ SCH (08:24)
[2021-06-27] MEDS: PANTOPRAZOLE 40 MG TABLET PO SCH (08:24)
[2021-06-27] MEDS: CLOPIDOGREL 75 MG TAB PO SCH (08:24)
[2021-06-27] MEDS: carvediloL 3.125 MG TAB PO SCH ×2 (08:24→16:46)
[2021-06-27] MEDS: ASPIRIN 81 MG PO SCH (08:24)
[2021-06-27] MEDS: HYDROcodone/APAP 10-325MG 1 EACH TAB PO PRN ×3 (10:04→20:51)
[2021-06-27] MEDS: SYMBICORT 80-4.5 MCG INHALER INHALATION SCH ×2 (10:52→19:46)
[2021-06-27] MEDS: TIOTROPIUM 2.5 MCG INHALER INHALATION SCH (10:52)
[2021-06-27 12:06] LABS: African American GFR (CKD) >90 (>60 ml/min/1.73 sqM); Anion Gap 1 mmol/L; Blood Urea Nitrogen 7 mg/dL (7-17); Calcium 8.2 mg/dL (8.4-10.2); Carbon Dioxide 21 mmol/L (22-30); Chloride 113 mmol/L (98-107); Glucose 112 mg/dL (74-99); Non-African American GFR(CKD) >90 (>60 ml/min/1.73 sqM); Potassium 3.1 mmol/L (3.5-5.1); Sodium 135 mmol/L (137-145)
[2021-06-27 12:23] LABS: Anisocytosis Slight; Basophils % (A) 1 %; Eosinophils % (A) 0 %; HCT 38.6 % (34.0-46.0); HGB 11.3 gm/dL (11.4-16.0); Hypochromasia Marked; Lymphocytes # (A) 0.6 k/uL (1.0-4.8); Lymphocytes % (A) 10 %; MCHC 29.4 g/dL (31.0-37.0); MCV 95.3 fL (80.0-100.0); Mean Platelet Volume 12.4; Monocytes # (A) 0.3 k/uL (0-1.0); Monocytes % (A) 5 %; Neutrophils # (A) 5.3 k/uL (1.3-7.7); Neutrophils % (A) 83 %; RBC 4.05 m/uL (3.80-5.40); RDW 16.9 % (11.5-15.5); WBC 6.4 k/uL (3.8-10.6)
[2021-06-27 12:59] LABS: Poikilocytosis (M) Present
[2021-06-27 13:00] LABS: Large Platelets Present; Platelet Count 251 k/uL (150-450)
[2021-06-27] MEDS ORDERED: Potassium Replacement Protocol 1 EACH MISC MISCELLANE PRN (13:21)
[2021-06-27] MEDS: POTASSIUM CHLORIDE ER 20 MEQ TAB.ER PO SCH (14:08)
[2021-06-27] MEDS ORDERED: POTASSIUM CHLORIDE ER 20 MEQ TAB.ER PO STA (15:46)
--- NOTE | 2021-06-27 15:49 | P.PN ---
Subjective Patient was examined at bedside and echo pitting of any new symptomatology. She is complaining of mild lower back pain. Case discussed with RN present at bedside as well as no new changes. We'll continue to monitor for any urinary retention as a Blake catheter was removed yesterday. Objective - Vital Signs Vital signs: Vital Signs Temp 98.4 F 06/27/21 13:24 Pulse 57 L 06/27/21 13:24 Resp 17 06/27/21 13:24 BP 120/64 06/27/21 13:24 Pulse Ox 96 06/27/21 13:24 Intake & Output 06/26/21 06/27/21 06/27/21 18:59 06:59 18:59 Intake Total 1400 Output Total 450 300 Balance 950 -300 Weight 49.895 kg Intake: Intake, IV Titration 1400 Amount Dextrose 5%-0.45% NaCl 1, 1200 000 ml @ 150 mls/hr IV . Q6H40M [facility] Rx#:[id number] Magnesium Sulfate-D5w Pmx 200 1 gm In Dextrose/Water 1 100ml.bag @ 100 mls/hr IVPB Q1H [facility] Rx#: [id number] Output: Urine 450 300 Straight 300 Uretheral (Blake) 450 - Exam Gen: awake, alert slightly confused awake alert oriented 2 HEENT: normocephalic, atraumatic, good hearing acuity, moist mucous membranes Resp: good air exchange, breathing comfortably with no accessory muscle use early on 4 L nasal cannula CVS: good distal perfusion x 4, GI: soft, NTTP, ND : no SPT, no CVAT, blake catheter is present MSK: no pitting edema, no clubbing Neuro: non-focal, moving all extremities Psych: cooperative, euthymic mood - Labs CBC & Chem 7: 06/27/21 05:30 06/27/21 05:30 Labs: Abnormal Lab Results - Last 24 Hours (Table) 06/26/21 06/27/21 06/27/21 Range/Units 18:38 05:30 05:30 Hgb 11.3 L (11.4-16.0) gm/dL MCHC 29.4 L (31.0-37.0) g/dL RDW 16.9 H (11.5-15.5) % Lymphocytes # 0.6 L (1.0-4.8) k/uL Sodium 135 L (137-145) mmol/L Potassium 3.1 L (3.5-5.1) mmol/L Chloride 114 H 113 H (98-107) mmol/L Carbon Dioxide 17 L 21 L (22-30) mmol/L Creatinine 0.36 L 0.42 L (0.52-1.04) mg/dL Glucose 139 H 112 H (74-99) mg/dL Calcium 7.9 L 8.2 L (8.4-10.2) mg/dL Assessment and Plan Plan: Assessment: #1 acute metabolic encephalopathy #2 acute hypoxic respiratory failure secondary to COVID-19 #3 urinary tract infection #4 coronary artery disease #5 seizure disorder? #6 essential hypertension #7 hyperlipidemia Plan: -Admit to medicine for close monitoring -Aspiration/fall precaution/HOB 30 -Continue with dexamethasone started on June 20 until June 30 to complete 10 days -Patient completed course of IV Rocephin for 7 days -Replete electrolytes when necessary -Breathing treatments as needed -PT/OT -DVT prophylaxis Lovenox -Remove Blake catheter and monitor for any urinary retention as discussed with RN today.
[2021-06-27] MEDS: CHOLECALCIFEROL 125 MCG (5000 IU) TABLET PO SCH (20:46)
[2021-06-28] MEDS: HYDROcodone/APAP 10-325MG 1 EACH TAB PO PRN ×3 (02:58→19:23)
[2021-06-28] MEDS: DEXTROSE 5%-0.45% NACL 1,000 ML IV SCH ×4 (04:38→21:00)
[2021-06-28 06:57] LABS: Anisocytosis Slight; Basophils % (A) 0 %; Eosinophils % (A) 1 %; HCT 36.8 % (34.0-46.0); HGB 11.8 gm/dL (11.4-16.0); Hypochromasia Slight; Lymphocytes # (A) 0.8 k/uL (1.0-4.8); Lymphocytes % (A) 10 %; MCH 28.2 pg (25.0-35.0); MCHC 32.1 g/dL (31.0-37.0); Mean Platelet Volume 10.8; Monocytes # (A) 0.4 k/uL (0-1.0); Monocytes % (A) 5 %; Neutrophils # (A) 6.7 k/uL (1.3-7.7); Neutrophils % (A) 84 %; Platelet Count 290 k/uL (150-450); Poikilocytosis Slight; RBC 4.19 m/uL (3.80-5.40); RDW 16.5 % (11.5-15.5)
[2021-06-28 06:58] LABS: MCV 87.9 fL (80.0-100.0)
[2021-06-28 07:03] LABS: African American GFR (CKD) >90 (>60 ml/min/1.73 sqM); Anion Gap 1 mmol/L; Blood Urea Nitrogen 8 mg/dL (7-17); Calcium 8.5 mg/dL (8.4-10.2); Carbon Dioxide 21 mmol/L (22-30); Chloride 114 mmol/L (98-107); Glucose 84 mg/dL (74-99); Non-African American GFR(CKD) >90 (>60 ml/min/1.73 sqM); Sodium 136 mmol/L (137-145)
[2021-06-28 07:06] LABS: Potassium 4.5 mmol/L (3.5-5.1)
[2021-06-28] MEDS: SYMBICORT 80-4.5 MCG INHALER INHALATION SCH ×2 (08:36→20:06)
[2021-06-28] MEDS: TIOTROPIUM 2.5 MCG INHALER INHALATION SCH (08:36)
[2021-06-28] MEDS: ENOXAPARIN 40 MG/0.4 ML SYRINGE SQ SCH (08:42)
[2021-06-28] MEDS: DEXAMETHASONE SOD PHOSPHATE 10 MG/ML 1 ML VIAL IVP SCH (08:42)
[2021-06-28] MEDS: PRAVASTATIN SODIUM 20 MG TAB PO SCH (08:43)
[2021-06-28] MEDS: CLOPIDOGREL 75 MG TAB PO SCH (08:43)
[2021-06-28] MEDS: BALSALAZIDE DISODIUM 750 MG CAPSULE PO SCH ×3 (08:43→20:56)
[2021-06-28] MEDS: carvediloL 3.125 MG TAB PO SCH ×2 (08:43→16:29)
[2021-06-28] MEDS: ASPIRIN 81 MG PO SCH (08:43)
[2021-06-28] MEDS: PANTOPRAZOLE 40 MG TABLET PO SCH (08:43)
[2021-06-28] MEDS: amLODIPine 10 MG TAB PO SCH (08:43)
[2021-06-28] MEDS: ISOSORBIDE MONONITRATE ER 30 MG TAB.ER.24H PO SCH (08:43)
[2021-06-28] MEDS: lisinopriL 20 MG TAB PO SCH (08:43)
--- NOTE | 2021-06-28 14:31 | P.PN ---
Subjective Patient was examined at bedside today not complaining of any new symptomatology. She is able to tell me where she is in her name. Unfortunately started to have urinary retention and a Blake catheter was inserted yesterday. Case discussed with RN present at bedside. I also did speak with the patient's daughter over the phone Shazia. Apparently she did get a follow-up MRI for her brain tumor she was unable to verify what type of mass as well as. According to the neurosurgeon that communicated to her the mass is stable no new changes from there perspective. Patient states that she will follow-up with her neurologist and neurosurgeon outpatient when she does get discharged. Computed tomography scan of the brain was also completed in the emergency department on day of admission in 06/19/2021. Headache communicated these results to the daughter and stated that there were no new changes on the computed tomography scan. All questions including prognosis and discharge planning were communicated to the daughter and she is agreeable. She will follow up with her PCP, neurologist and neurosurgeon on discharge. Objective - Vital Signs Vital signs: Vital Signs Temp 97.7 F 06/28/21 10:00 Pulse 53 L 06/28/21 10:00 Resp 14 06/28/21 10:00 BP 163/65 06/28/21 10:00 Pulse Ox 95 06/28/21 10:00 Intake & Output 06/27/21 06/28/21 06/28/21 18:59 06:59 18:59 Intake Total 480 800 Output Total 200 Balance -200 480 800 Intake: Intake, IV Titration 800 Amount Dextrose 5%-0.45% NaCl 1, 800 000 ml @ 150 mls/hr IV . Q6H40M [facility] Rx#:[id number] Oral 480 Output: Urine 200 Uretheral (Blake) 200 Other: Voiding Method Indwelling Catheter Indwelling Catheter - Exam Gen: awake, alert slightly confused awake alert oriented 2 HEENT: normocephalic, atraumatic, good hearing acuity, moist mucous membranes Resp: good air exchange, breathing comfortably with no accessory muscle use early on 4 L nasal cannula CVS: good distal perfusion x 4, GI: soft, NTTP, ND : no SPT, no CVAT, blake catheter is present MSK: no pitting edema, no clubbing Neuro: non-focal, moving all extremities Psych: cooperative, euthymic mood Blake catheter inserted - Labs CBC & Chem 7: 06/28/21 06:16 06/28/21 06:16 Labs: Abnormal Lab Results - Last 24 Hours (Table) 06/28/21 06/28/21 Range/Units 06:16 06:16 RDW 16.5 H (11.5-15.5) % Lymphocytes # 0.8 L (1.0-4.8) k/uL Sodium 136 L (137-145) mmol/L Chloride 114 H (98-107) mmol/L Carbon Dioxide 21 L (22-30) mmol/L Creatinine 0.40 L (0.52-1.04) mg/dL Assessment and Plan Plan: Assessment: #1 acute metabolic encephalopathy #2 acute hypoxic respiratory failure secondary to COVID-19 #3 urinary tract infection #4 coronary artery disease #5 seizure disorder? #6 essential hypertension #7 hyperlipidemia #8 brain mass Plan: -Admit to medicine for close monitoring -Aspiration/fall precaution/HOB 30 -Continue with dexamethasone started on June 20 until June 30 to complete 10 days -Patient completed course of IV Rocephin for 7 days -Replete electrolytes when necessary -Breathing treatments as needed -Brain CT completed within normal limits. Spoke with Dr. To stated that MRI was completed in the last 2 weeks by her neurosurgeon and stable from their perspective. I have encouraged her to follow-up with neurology and neurosurgery on discharge. She is agreeable -PT/OT -DVT prophylaxis Lovenox -Blake catheter was inserted again due to urinary retention.
[2021-06-28] MEDS: CHOLECALCIFEROL 125 MCG (5000 IU) TABLET PO SCH (19:23)
[2021-06-29] MEDS: DEXTROSE 5%-0.45% NACL 1,000 ML IV SCH (05:51)
[2021-06-29] MEDS: TIOTROPIUM 2.5 MCG INHALER INHALATION SCH (07:50)
[2021-06-29] MEDS: SYMBICORT 80-4.5 MCG INHALER INHALATION SCH ×2 (07:50→19:20)
[2021-06-29] MEDS: CLOPIDOGREL 75 MG TAB PO SCH (08:29)
[2021-06-29] MEDS: lisinopriL 20 MG TAB PO SCH (08:29)
[2021-06-29] MEDS: DEXAMETHASONE SOD PHOSPHATE 10 MG/ML 1 ML VIAL IVP SCH (08:29)
[2021-06-29] MEDS: PRAVASTATIN SODIUM 20 MG TAB PO SCH (08:29)
[2021-06-29] MEDS: ASPIRIN 81 MG PO SCH (08:29)
[2021-06-29] MEDS: ISOSORBIDE MONONITRATE ER 30 MG TAB.ER.24H PO SCH (08:29)
[2021-06-29] MEDS: BALSALAZIDE DISODIUM 750 MG CAPSULE PO SCH ×3 (08:29→21:21)
[2021-06-29] MEDS: ENOXAPARIN 40 MG/0.4 ML SYRINGE SQ SCH (08:29)
[2021-06-29] MEDS: PANTOPRAZOLE 40 MG TABLET PO SCH (08:29)
[2021-06-29] MEDS: amLODIPine 10 MG TAB PO SCH (08:29)
[2021-06-29] MEDS: carvediloL 3.125 MG TAB PO SCH ×2 (08:29→16:52)
[2021-06-29 11:44] LABS: Basophils # (A) 0.03 X 10*3/uL (0.00-0.10); Basophils % (A) 0.3 %; Eosinophils # (A) 0.02 X 10*3/uL (0.04-0.35); Eosinophils % (A) 0.2 %; HCT 39.3 % (37.2-46.3); HGB 11.8 g/dL (12.0-15.0); Lymphocytes # (A) 0.75 X 10*3/uL (0.90-5.00); Lymphocytes % (A) 6.7 %; MCH 27.6 pg (27.0-32.0); MCV 91.8 fL (80.0-97.0); Mean Platelet Volume 12.6 fL (9.5-12.2); Monocytes # (A) 0.57 X 10*3/uL (0.20-1.00); Monocytes % (A) 5.1 %; Neutrophils # (A) 9.69 X 10*3/uL (1.80-7.70); Neutrophils % (A) 86.2 %; Platelet Count 263 X 10*3/uL (140-440); RBC 4.28 X 10*6/uL (4.10-5.20); RDW 17.2 % (11.5-14.5); WBC 11.23 X 10*3/uL (4.50-10.00)
[2021-06-29 11:45] LABS: African American GFR (CKD) 114.7 (60.0-200.0); Anion Gap 13.3 mmol/L (10.00-18.00); BUN/Creat Ratio 17.38 Ratio (12.00-20.00); Blood Urea Nitrogen 6.8 mg/dL (9.0-27.0); Calcium 8.2 mg/dL (8.7-10.3); Carbon Dioxide 15.4 mmol/L (20.0-27.5); Non-African American GFR(CKD) 98.9 (60.0-200.0); Potassium 3.3 mmol/L (3.5-5.5)
[2021-06-29] MEDS: POTASSIUM CHLORIDE ER 20 MEQ TAB.ER PO SCH (13:10)
[2021-06-29] MEDS: HYDROcodone/APAP 10-325MG 1 EACH TAB PO PRN ×2 (16:56→21:27)
[2021-06-29] MEDS: CHOLECALCIFEROL 125 MCG (5000 IU) TABLET PO SCH (19:34)
[2021-06-30 06:10] LABS: African American GFR (CKD) >90 (>60 ml/min/1.73 sqM); Anion Gap -2 mmol/L; Blood Urea Nitrogen 10 mg/dL (7-17); Calcium 8.5 mg/dL (8.4-10.2); Carbon Dioxide 27 mmol/L (22-30); Chloride 111 mmol/L (98-107); Glucose 67 mg/dL (74-99); Non-African American GFR(CKD) >90 (>60 ml/min/1.73 sqM); Potassium 3.2 mmol/L (3.5-5.1); Sodium 136 mmol/L (137-145)
[2021-06-30 06:28] LABS: Anisocytosis Slight; Basophils % (A) 0 %; Eosinophils % (A) 0 %; HCT 35.3 % (34.0-46.0); HGB 10.9 gm/dL (11.4-16.0); Hypochromasia Moderate; Lymphocytes % (A) 14 %; MCH 27.4 pg (25.0-35.0); MCV 88.4 fL (80.0-100.0); Mean Platelet Volume 9.8; Monocytes # (A) 0.5 k/uL (0-1.0); Monocytes % (A) 7 %; Neutrophils # (A) 5.7 k/uL (1.3-7.7); Neutrophils % (A) 78 %; Platelet Count 247 k/uL (150-450); RBC 3.99 m/uL (3.80-5.40); RDW 17.2 % (11.5-15.5); WBC 7.3 k/uL (3.8-10.6)
[2021-06-30] MEDS: DEXAMETHASONE SOD PHOSPHATE 10 MG/ML 1 ML VIAL IVP SCH (07:58)
[2021-06-30] MEDS: POTASSIUM CHLORIDE ER 20 MEQ TAB.ER PO SCH ×2 (07:59→08:00)
[2021-06-30] MEDS: PRAVASTATIN SODIUM 20 MG TAB PO SCH (07:59)
[2021-06-30] MEDS: BALSALAZIDE DISODIUM 750 MG CAPSULE PO SCH (07:59)
[2021-06-30] MEDS: CLOPIDOGREL 75 MG TAB PO SCH (07:59)
[2021-06-30] MEDS: PANTOPRAZOLE 40 MG TABLET PO SCH (07:59)
[2021-06-30] MEDS: ASPIRIN 81 MG PO SCH (07:59)
[2021-06-30] MEDS: lisinopriL 20 MG TAB PO SCH (07:59)
[2021-06-30] MEDS: ISOSORBIDE MONONITRATE ER 30 MG TAB.ER.24H PO SCH (07:59)
[2021-06-30] MEDS: amLODIPine 10 MG TAB PO SCH (07:59)
[2021-06-30] MEDS: ENOXAPARIN 40 MG/0.4 ML SYRINGE SQ SCH (07:59)
[2021-06-30] MEDS: carvediloL 3.125 MG TAB PO SCH (07:59)
[2021-06-30] MEDS: SYMBICORT 80-4.5 MCG INHALER INHALATION SCH (08:37)
[2021-06-30] MEDS: TIOTROPIUM 2.5 MCG INHALER INHALATION SCH (08:38)
--- NOTE | 2021-06-30 10:05 | P.DS ---
Providers Date of admission: 06/19/21 12:56 Expected date of discharge: 06/30/21 Attending physician: Lloyd Steve MD Consults: 06/24/21 10:17 Consult Physician Routine Consulting Provider: Jorge L Campos Consult Reason/Comments: cast change? 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 She was subsequently found to have acute renal failure secondary to dehydration and COVID-19 infection. Chest X-ray consistent with bibasilar acure infiltrate. Head CT consistent with small vessel isichemic changes. During her hospital stay she completed 10 days of dexamethasone. There was some concern for urinary tract infection and she subsequently completed 7 days of Rocephin however no urine culture was obtained. She also completed 5 days of Zithromax to cover for community-acquired pneumonia. She continued to be significantly weak and will need rehab therapy. While she was here orthopedics saw her for a wrist fracture and did change her splint. They are recommending outpatient follow-up. She failed a voiding trial requiring reinitiation of her Blake catheter. I recommend that she loses in another week increase his mobility and then a repeat voiding trial at the alf facility. If she fails again would recommend outpatient follow-up with urology. She did continue to struggle with keeping her potassium. Suggest oral potassium replacement and then recheck in 5 days. Abdominal US- No hydropnephrosis. Patient seen and examined at bedside. Denies any chest pain, states her shortness of breath is slowly getting better, cough is less frequent, no nausea or vomiting. Still not feeling very hungry. Vital signs reviewed and stable. General: non toxic, no distress, appears at stated age, frail, temporal wasting Derm: warm, dry Head: atraumatic, normocephalic, symmetric Eyes: EOMI, no lid lag, anicteric sclera Mouth: no lip lesion, mucus membranes moist Cardiovascular: S1S2 reg, no murmur, positive posterior tibial pulse bilateral, Lungs: Course bs bilateral, no rhonchi, no rales , no accessory muscle use Abdominal: soft, nontender to palpation, no guarding, no appreciable organomegaly Ext: no gross muscle atrophy, no edema, no contractures Neuro: CN II-XI grossly intact, no focal neuro deficits Psych: Alert, oriented, appropriate affect A total of 55 minutes of time were spent preparing this complex discharge summary . Patient Condition at Discharge: Stable Plan - Discharge Summary Discharge Rx Participant: Yes New Discharge Prescriptions: New Tiotropium 2.5 Mcg/Puff [Spiriva Respimat 2.5 Mcg] 2 puff INHALATION RT-DAILY each Potassium Chloride [Potassium Chloride ER] 10 meq PO DAILY #5 tab Continue Albuterol Sulfate [Albuterol Sulfate Hfa] 2 puff PO RT-Q6H PRN PRN Reason: Shortness Of Breath amLODIPine [Norvasc] 10 mg PO DAILY Biotin [Biotin Disolve] 5,000 mcg PO DAILY carvediloL [Coreg] 3.125 mg PO BID Clopidogrel Bisulfate [Plavix] 75 mg PO DAILY Fluticasone/Umeclidin/Vilanter [Trelegy Ellipta 100-62.5-25] 1 puff INHALATION RT-DAILY Isosorbide Mononitrate ER [Imdur] 30 mg PO DAILY Mesalamine [Pentasa] 1,500 mg PO TID Pravastatin Sodium [Pravachol] 20 mg PO DAILY ALPRAZolam [Xanax] 0.5 mg PO HS PRN #3 tab PRN Reason: Anxiety Aspirin 81 mg PO DAILY Cholecalciferol [Vitamin D3 (125 Mcg = 5000 Iu)] 125 mcg PO HS lisinopriL 40 mg PO DAILY Magnesium Gluconate [Magonate] 500 mg PO QID Nitroglycerin Sl Tabs [Nitrostat] 0.4 mg SUBLINGUAL Q5M PRN PRN Reason: Chest Pain Pantoprazole Sodium [Protonix] 40 mg PO DAILY HYDROcodone/APAP 10-325MG [[place] 10-325] 1 tab PO Q4HR PRN #12 tab PRN Reason: Pain Discharge Medication List Albuterol Sulfate [Albuterol Sulfate Hfa] 2 puff PO RT-Q6H PRN 04/25/21 [History] Aspirin 81 mg PO DAILY 04/25/21 [History] Biotin [Biotin Disolve] 5,000 mcg PO DAILY 04/25/21 [History] Cholecalciferol [Vitamin D3 (125 Mcg = 5000 Iu)] 125 mcg PO HS 04/25/21 [History] Clopidogrel Bisulfate [Plavix] 75 mg PO DAILY 04/25/21 [History] Fluticasone/Umeclidin/Vilanter [Trelegy Ellipta 100-62.5-25] 1 puff INHALATION RT-DAILY 04/25/21 [History] Isosorbide Mononitrate ER [Imdur] 30 mg PO DAILY 04/25/21 [History] Magnesium Gluconate [Magonate] 500 mg PO QID 04/25/21 [History] Mesalamine [Pentasa] 1,500 mg PO TID 04/25/21 [History] Nitroglycerin Sl Tabs [Nitrostat] 0.4 mg SUBLINGUAL Q5M PRN 04/25/21 [History] Pantoprazole Sodium [Protonix] 40 mg PO DAILY 04/25/21 [History] amLODIPine [Norvasc] 10 mg PO DAILY 04/25/21 [History] carvediloL [Coreg] 3.125 mg PO BID 04/25/21 [History] lisinopriL 40 mg PO DAILY 04/25/21 [History] Pravastatin Sodium [Pravachol] 20 mg PO DAILY 06/19/21 [History] ALPRAZolam [Xanax] 0.5 mg PO HS PRN #3 tab 06/30/21 [Rx] HYDROcodone/APAP 10-325MG [[place] 10-325] 1 tab PO Q4HR PRN #12 tab 06/30/21 [Rx] Potassium Chloride [Potassium Chloride ER] 10 meq PO DAILY #5 tab 06/30/21 [Rx] Tiotropium 2.5 Mcg/Puff [Spiriva Respimat 2.5 Mcg] 2 puff INHALATION RT-DAILY each 06/30/21 [Rx] Follow up Appointment(s)/Referral(s): Nonstaff,Physician [REFERRING] - 1-2 days Gagan Huitron PAC [PHYSICIAN GENETIC TECHNOLOGIST] - 1 Week Patient Instructions/Handouts: Dehydration (DC) Activity/Diet/Wound Care/Special Instructions: Activity: as tolerated, fall precautions Diet: Heart healthy Diet Special Instructions: Orthopedic Discharge Instructions: 1. Do not remove splint 2. Nonweightbearing left upper extremity 3. Recommend ice and elevation 4. Follow up with orthopedic surgeon in the next 7-10 days for evaluation Maintain Blake Cath for 1 week, then voiding trial if fails again suggest Urology appointment. BMP in 5 days DX: GINETTE, Hypokalemia Discharge Disposition: TRANSFER TO SNF/ECF
[2021-06-30 11:40] VITALS: BP 166/71; PULSE 59; RESP 14; TEMP 98.7
== END 2021-06-30 11:38 | DRG 177 ==
LOC: EC 10:25 → 4SSUR 12:56
PROVIDERS: ADMIT Internal Medicine; ATTEND Internal Medicine
PROC: 3E0333Z Introduction of Anti-inflammatory into Peripheral Vein, Percutaneous Approach (ICD-10-PCS; principal; 2021-06-20)
DX: U07.1 COVID-19 (principal); E43 Unspecified severe protein-calorie malnutrition; G92.8 Other toxic encephalopathy; J12.82 Pneumonia due to coronavirus disease 2019; J96.01 Acute respiratory failure with hypoxia; Z68.1 Body mass index [BMI] 19.9 or less, adult; E87.0 Hyperosmolality and hypernatremia; E87.1 Hypo-osmolality and hyponatremia; E87.2 Acidosis; N17.9 Acute kidney failure, unspecified; N39.0 Urinary tract infection, site not specified; J44.0 Chronic obstructive pulmonary disease with (acute) lower respiratory infection; D32.9 Benign neoplasm of meninges, unspecified; E78.5 Hyperlipidemia, unspecified; E86.0 Dehydration; E87.6 Hypokalemia; E87.8 Other disorders of electrolyte and fluid balance, not elsewhere classified; F03.90 Unspecified dementia, unspecified severity, without behavioral disturbance, psychotic disturbance, mood disturbance, and anxiety; F17.200 Nicotine dependence, unspecified, uncomplicated; G40.909 Epilepsy, unspecified, not intractable, without status epilepticus; I10 Essential (primary) hypertension; I25.10 Atherosclerotic heart disease of native coronary artery without angina pectoris; I25.2 Old myocardial infarction; R62.7 Adult failure to thrive; Z79.02 Long term (current) use of antithrombotics/antiplatelets; Z79.82 Long term (current) use of aspirin; Z79.899 Other long term (current) drug therapy; Z90.710 Acquired absence of both cervix and uterus; Z91.81 History of falling; Z87.81 Personal history of (healed) traumatic fracture
CPT/HCPCS: 36415; 70450; 71045; 76770; 80048; 80053; 81001; 83605; 83735; 84132; 85025; 85610; 85730; 87324; 87635; 93005; 94640; 94760; 99285